=== PATIENT | female | born 1945 | race Caucasian/White ===

== ENCOUNTER 2017-08-12 06:19 | Observation (INO) | payer OTHER, MEDICARE ==
[2017-07-21 13:41] VITALS: BMI 41.0
--- NOTE | 2017-07-21 14:19 | PAT Medication Instructions ---
Service Date Jul 21, 2017. Current Home Medication List Aspirin (Aspirin Ec), 81 MG PO QAM Betamethasone Dipropionate (To (Betamethasone Dipropionat), 1 DOSE TOP PRN Biotin (Biotin 5000), 5 MG PO QAM Clobetasol Propionate (Clobetasol Propionate Cream 0.05%), 1 APPLN EXT PRN Hydrochlorothiazide (Hctz), 25 MG PO QAM Ibuprofen (Advil), 400 MG PO QD PRN for Pain Lisinopril (Prinivil), 40 MG PO QAM Loratadine (Claritin), 10 MG PO QD PRN for allergies Metoprolol Succinate (Toprol Xl), 25 MG PO QAM Multivitamin (Multivitamin), 1 TAB PO QAM Naproxen (Aleve), 440 MG PO QAM PRN for Pain Polyvinyl Alcohol-Povidone (Op (Refresh), 1 DROP OPB BID PRN for dry eyes Simvastatin (Zocor), 40 MG PO QPM Medication Instructions For Your Scheduled Surgery - Check with surgeon for instructions: Aspirin (Aspirin Ec), 81 MG PO QAM Ibuprofen (Advil), 400 MG PO QD PRN for Pain Naproxen (Aleve), 440 MG PO QAM PRN for Pain - Hold the following medications 24 hours prior to surgery: Clobetasol Propionate (Clobetasol Propionate Cream 0.05%), 1 APPLN EXT PRN Betamethasone Dipropionate (To (Betamethasone Dipropionat), 1 DOSE TOP PRN - Hold the following medications the morning of surgery: Biotin (Biotin 5000), 5 MG PO QAM Hydrochlorothiazide (Hctz), 25 MG PO QAM Lisinopril (Prinivil), 40 MG PO QAM Loratadine (Claritin), 10 MG PO QD PRN for allergies Multivitamin (Multivitamin), 1 TAB PO QAM - Take the following medications the morning of surgery with a sip of water: Polyvinyl Alcohol-Povidone (Op (Refresh), 1 DROP OPB BID PRN for dry eyes Metoprolol Succinate (Toprol Xl), 25 MG PO QAM - Take the following medications as scheduled the night before surgery: Simvastatin (Zocor), 40 MG PO QPM Polyvinyl Alcohol-Povidone (Op (Refresh), 1 DROP OPB BID PRN for dry eyes If you have any questions please call us at [phone] or [phone] or [phone]
--- NOTE | 2017-07-21 14:55 | DIAGNOSTIC IMAGING REPORT ---
CHEST 2 VIEWS ROUTINE HISTORY: Preop. COMPARISON: None. FINDINGS: The lungs are clear. Cardiac silhouette is normal in size. No pleural effusions. No pneumothorax. Cervical spinal fusion hardware is partially visualized. IMPRESSION: No acute process. Electronically signed by: Galdino Yin M.D. 07/21/2017 2:53 PM Dictated Date/Time: 07/21/2017 2:51 PM
[2017-07-21 15:33] LABS: BASO % 0.5 %; BASO ABS # 0.03 K/uL (0-0.2); COMPLETE YES; EOS % 4.1 %; IG% 0.3 %; LYMPH % 20.3 %; LYMPH ABS # 1.28 K/uL (1.2-3.4); MEAN CELL VOLUME 91.7 fL (80-100); MEAN CORPUSCULAR HEMOGLOBIN 30.3 pg (25-34); MEAN CORPUSCULAR HGB CONC 33.1 g/dl (32-36); MEAN PLATELET VOLUME 10.1 fL (7.4-10.4); MONO % 8.4 %; NEUT % 66.4 %; PLATELET COUNT 213 K/uL (130-400); RED BLOOD COUNT 4.58 M/uL (4.2-5.4)
[2017-07-21 15:39] LABS: URINE APPEARANCE CLEAR (CLEAR); URINE BILIRUBIN NEG (NEG); URINE COLOR YELLOW; URINE EPITHELIAL CELL AUTO >30 /lpf (0-5); URINE NITRITE NEG (NEG); URINE PH 5.5 (4.5-7.5); UROBILINOGEN NEG (NEG)
[2017-07-21 15:47] LABS: MANUAL MICROSCOPIC REQUIRED? NO; REVIEW REQ? NO
[2017-07-21 15:47] LABS: PROTHROMBIN TIME (PATIENT) 10.4 SECONDS (9.0-12.0)
[2017-07-21 16:16] LABS: BUN/CREATININE RATIO 26.9 (10-20); CALCIUM 9.4 mg/dl (8.5-10.1); CREATININE 0.8 mg/dl (0.60-1.20); POTASSIUM 3.7 mmol/L (3.5-5.1)
--- NOTE | 2017-08-11 14:12 | HISTORY & PHYSICAL EXAMINATION ---
DATE OF ADMISSION: 08/12/2017 HISTORY OF PRESENT ILLNESS: Clarice has spinal cord compressions, being preoped for cervical spine surgery. She has had ongoing difficulties 2 years in duration, worsening over time. She cannot lie supine. She has shock waves to her spine when she lies supine. Some recovery and improvement when she stands and sits up. She has not been able to lie in her own bed. Problem is quite significant for her with neck and arm pain. She also has right upper extremity difficulty consistent with right carpal tunnel syndrome. She has failed conservative management. PAST MEDICAL HISTORY: Positive for hypertension, high cholesterol, obesity. SOCIAL HISTORY: Nonsmoker, non-ETOH user. PAST SURGICAL HISTORY: Cervical spine surgery, bilateral knee replacement, hysterectomy. ALLERGIES: CEPHALEXIN. MEDICATIONS: Lisinopril, simvastatin, ibuprofen, Aleve, multivitamin, metoprolol, aspirin, hydrochlorothiazide. REVIEW OF SYSTEMS: She denies any blurred vision, double vision. She does have headaches. She has tinnitus as well. She does not have vertigo. Denies chest pain, palpitations. Denies asthma, wheezing, shortness of breath. No nausea, vomiting. She admits to upper extremity difficulties, particularly on the right and some on the left paresthesias, slight weakness, pain with flexion, extension of the cervical spine giving a shock wave type situation consistent with a Lhermitte sign. OBJECTIVE: VITAL SIGNS: Blood pressure 130/80, pulse of 80, respiratory rate 16, afebrile. HEAD, EYES, EARS, NOSE, AND THROAT: Normal. Pupils react to light and accommodation. Ear, nose and throat clear. CARDIAC: Normal S1, S2, no S3. LUNGS: Clear to auscultation. No rales, rhonchi or wheezing. ABDOMEN: Soft, nontender. Bowel sounds intact. She has a positive Spurling maneuver with rotation and side bending. She has weakness of her upper extremities. She has a positive Tinel, positive Phalen's on the right upper extremity. She has slight hyperreflexia. IMPRESSION: Spinal cord compression, cervical spondylosis and right carpal tunnel syndrome. DISPOSITION AND PLAN: Includes removal of hardware at C4-C7 of the cervical spine, revision ACDF C5-C6 cervical spine, ACDF of the cervical spine C4-C5, C3-4, possible C7-T1. Also, right carpal tunnel release. All questions addressed and answers she is emotionally and physically ready for surgery coming up on 08/12/2017 at [facility].
[~2017-08-12] VITALS: Ht 152.4 cm; Wt 96.8 kg
[2017-08-12] VITALS (14 sets, daily range): BP systolic 104–180; BP diastolic 64–78; PULSE 64–76; TEMP 36.4–36.9; O2SAT 97–100; Ht 152.4 cm; Wt 96.8 kg
[~2017-08-12 06:19] MED LIST: ASPI81TA28 PO; BETA0.053 TOP; BIOTCAP2 PO; CEFAZOLIN 2000MG IV PUSH 10 ML IV SCH; CLBCRM30 EXT; CLR10 PO; HYDR25TA4 PO; IBUP-1050 PO; LISI40TA PO; METO25TA3 PO; MULT-506 PO; NAPR1TAB9 PO; POLYSOL OPB; SIMV40TA2 PO
--- NOTE | 2017-08-12 08:11 | History & Physical Bridge Note ---
H&P Re-Evaluation Bridge Note: I have examined the patient, reviewed the History & Physical and in the interval since the performance of the History & Physical I have noted the following changes of clinical significance: No changes noted
[2017-08-12] MEDS ORDERED: BACITRACIN 50000 UNIT VIAL ONE (08:16)
[2017-08-12] MEDS ORDERED: BUPIVACAINE/EPINEPHRINE 0.5% MPF 1:200,000 30 ML VIAL ONE ×2 (08:16→08:21)
[2017-08-12] MEDS ORDERED: GELATIN SPONGE SZ 100 ONE (08:16)
[2017-08-12] MEDS ORDERED: THROMBIN FOR SOLN 20000 UNIT KIT ONE (08:16)
[2017-08-12] MEDS ORDERED: ONDANSETRON INJ 2 MG/ML 2 ML VIAL ONE ×2 (08:20→11:03)
[2017-08-12] MEDS ORDERED: DEXAMETHASONE SOD INJ 4 MG/ML VIAL ONE (08:20)
[2017-08-12] MEDS ORDERED: NEOSTIGMINE METHYLSULFATE 5 MG/5 ML SYR ONE (08:20)
[2017-08-12] MEDS ORDERED: LIDOCAINE HCL 2% 2 ML VIAL (20MG/ML) ONE (08:20)
[2017-08-12] MEDS ORDERED: HYDROmorphone INJ 2 MG/ML SYR/VIAL ONE (08:20)
[2017-08-12] MEDS ORDERED: LARYING-O-JET KIT (LTA) ONE ×2 (08:20)
[2017-08-12] MEDS ORDERED: FENTANYL CITRATE INJ 50 MCG/1 ML 2 ML VIAL ONE (08:20)
[2017-08-12] MEDS ORDERED: SODIUM CHLORIDE 0.9% INJ 10 ML VIAL ONE (08:20)
[2017-08-12] MEDS ORDERED: MIDAZOLAM HCL 1 MG/ML 2ML VIAL ONE (08:20)
[2017-08-12] MEDS ORDERED: GLYCOPYRROLATE INJ 0.2 MG/ML VIAL ONE ×2 (08:20→11:03)
[2017-08-12] MEDS ORDERED: PROPOFOL IV EMULSION 10 MG/ML 20 ML VIAL IV ONE (08:20)
[2017-08-12] MEDS ORDERED: CLINDAMYCIN 600 MG/54 ML D5W IV ONE (08:26)
[2017-08-12] MEDS ORDERED: BUPIVACAINE/EPINEPHRINE 0.5% MPF 1:200,000 10 ML VIAL ONE (09:23)
[2017-08-12] MEDS ORDERED: PHENYLEPHRINE HCL INJ 10 MG/ML VIAL ONE (09:48)
[2017-08-12] MEDS ORDERED: EpHEDrine SULFATE 50MG/5ML SYR ONE (09:48)
[2017-08-12] MEDS ORDERED: VANCOMYCIN HCL 1000MG/20ML VIAL ONE (10:19)
--- NOTE | 2017-08-12 11:23 | DIAGNOSTIC IMAGING REPORT ---
SPINE ONE VIEW, ANY LEVEL HISTORY: 72 years-old Female C4-C7 HARDWARE REMOVAL C5-C6 REVISION ACDF C3-C4 POSS C7-T1 hardware removal with C5-C6 revision COMPARISON: MRI cervical spine 03/23/2017 TECHNIQUE: 2 spot fluoroscopic images of the cervical spine were obtained utilizing 9.7 seconds fluoroscopy time. FINDINGS: Crosstable lateral views of the cervical spine with only the C2, C3 and C4 vertebral bodies well seen. Previously noted anterior fusion hardware at C4 appears to have been removed in the interval. Fusion hardware is present anteriorly at what appears to be the C5-C6 level. Recommend follow-up radiographs to confirm exact levels. IMPRESSION: Fluoroscopic assistance as above. Please see operative report for further details. The above report was generated using voice recognition software. It may contain grammatical, syntax or spelling errors. Electronically signed by: Gutierrez Sultana M.D. 08/12/2017 11:22 AM Dictated Date/Time: 08/12/2017 11:20 AM
--- NOTE | 2017-08-12 11:24 | [facility] Post Operative Brief Note ---
Immediate Operative Summary Operative Date Aug 12, 2017. Pre-Operative Diagnosis Spinal cord compression, cervical spondylosis, right carpal tunnel syndrome Post-Operative Diagnosis Spinal cord compression, cervical spondylosis, right carpal tunnel syndrome Procedure(s) Performed Right Carpal Tunnel Release, Removal of Prior Anterior Cervical Plate, Corpectomy C5-C6, Insertion Globus Coalition Surgeon Dr. Jose Armando Garsia Frame Table Operator Surgeon(s) Pramod Mccain PA-C Estimated Blood Loss carpal tunnel release = 0ml; C5-C6 Corpectomy = 40ml Findings carpal tunnel syndrome, spinal cord compression Specimens A. Explanted Cervical Hardware (7 screws and 1 plate) Complication(s) None Disposition Recovery Room / PACU
[2017-08-12] MEDS ORDERED: DEXAMETHASONE INJ 8 MG in SYRINGE 0 ML IV PRN (11:30)
[2017-08-12] MEDS ORDERED: NALOXONE HCL 0.4 MG/1 ML VIAL/CARP IV PRN ×2 (11:30→11:45)
[2017-08-12] MEDS ORDERED: ARTIFICIAL TEARS OP SOLN OPB PRN ×2 (11:30)
[2017-08-12] MEDS ORDERED: RACEPINEPHRINE 2.25% NEBU SOLN 0.5 ML VIAL INH PRN (11:30)
[2017-08-12] MEDS ORDERED: ONDANSETRON INJ 2 MG/ML 2 ML VIAL IV PRN ×2 (11:30→11:45)
[2017-08-12] MEDS ORDERED: LORATADINE 10 MG TAB PO PRN (11:30)
[2017-08-12] MEDS ORDERED: HYDROmorphone INJ 0.5 MG/0.5 ML SYR IV PRN (11:30)
[2017-08-12] MEDS ORDERED: MAGNESIUM HYDROXIDE SUSP 30 ML UDC PO PRN (11:30)
[2017-08-12] MEDS ORDERED: LORAZEPAM INJ 0.5 MG in SYRINGE 0.75 ML IV PRN (11:30)
[2017-08-12] MEDS ORDERED: HYDROmorphone INJ 1 MG/ML SYR IV PRN ×2 (11:45→14:15)
[2017-08-12] MEDS ORDERED: LABETALOL HCL IV 5 MG/ML 20ML IV PRN (11:45)
[2017-08-12] MEDS ORDERED: ATROPINE SULFATE 0.1 MG/ML 5ML SYR IV PRN (11:45)
[2017-08-12] MEDS ORDERED: PROMETHAZINE HCL INJ 12.5 MG in SODIUM CHLORIDE 0.9% 50ML 50 ML IV PRN (11:45)
[2017-08-12] MEDS ORDERED: FLUMAZENIL 0.1 MG/1 ML 10 ML VIAL IV PRN (11:45)
[2017-08-12] MEDS ORDERED: EpHEDrine SULFATE INJ 50 MG/ML AMP IV PRN (11:45)
[2017-08-12] MEDS ORDERED: IV FLUIDS COMPLETED PRN (12:00)
--- NOTE | 2017-08-12 12:10 | OPERATIVE REPORT ---
DATE OF OPERATION: 08/12/2017 PREOPERATIVE DIAGNOSES: 1. Right carpal tunnel syndrome. 2. Spinal cord compression C5-C6 cervical spine. POSTOPERATIVE DIAGNOSES: Same. PROCEDURES: 1. Right carpal tunnel release. 2. Corpectomy C5 and C6 cervical spine. 3. An anterior cervical bone graft, essentially anterior cervical fusion from C5-C6 with a PEEK implant packed with autograft. BLOOD LOSS: 40 mL. COMPLICATIONS: Zero. SURGEON: Dr. Garsia. WINDING LATHE OPERATOR: Pramod Mccain PA-C. DESCRIPTION OF PROCEDURE: The patient was taken to the operating room, a general intubated anesthetic provided to the patient. First, we addressed her right carpal tunnel syndrome. A tourniquet was applied to the right upper extremity, scrubbed, prepped and draped sterile. I made a skin incision over the transverse carpal ligament, divided the soft tissue in the same plane, divided the transverse carpal ligament perpendicular to its fibers. I was able to release the carpal canal approximately 1 cm proximal to the proximal crease of the wrist. I felt the nerve was decompressed. We irrigated and closed with 4-0 nylon suture. Sterile dressing applied, splint applied. The patient was kept in the operating room. We then went and prepped her for the cervical spine portion of the procedure. Traction was placed through the occiput and mandible, towels placed underneath the scapula. We scrubbed, prepped and draped sterile again. I used her old skin incision, it was a very tedious approach to get to the anterior aspect of the spinal canal. We did not encounter any significant problems that I could assess during the exposure. We got down to the anterior plate, the set screws were turned, the regular screws were backed out, the plate was removed with relative ease. We had studied the images greatly and preop over the last 2 weeks anticipation of the surgery. We essentially did a corpectomy at C5-C6 of the cervical spine. I took out approximately 10 mm of bone. Each vertebra only being approximately 7 mm in height. We carefully got back to the spinal cord. I decompressed the osteophytes on the spinal cord, freeing up the spine itself, foraminotomies provided as well. The cord was free of obstruction at C5-C6 interval. We then assessed the C6-C7 interval. My assessment early on was it might be a nonunion at C6-C7. I thought it was very solid at the time of exploration and repeat surgery in this level was unnecessary. We also radiographically looked at C3-4 and C7-T1 of thoracic spine and felt no further surgery was required. We ____ completely on the safety of the patient. Prior to irrigation and closure, in the corpectomy site we put in a coalition implant by the Ozmosis, 10 mm in height, slight taper to about 9 mm. This was packed with autograft, one screw 14 mm, superior direction one screw and inferior of same length. We then irrigated and closed over a Broaddus drain. Sterile dressings applied. The patient extubated. Returned to PACU stable. There were no apparent intraoperative complications. Sponge and needle count correct at the close. I attest to the content of the Intraoperative Record and any orders documented therein. Any exception s are noted below.
--- NOTE | 2017-08-12 12:45 | Anesthesiology Progress Note ---
Anesthesia Post Op Note Date & Time Aug 12, 2017 at 12:45 Vital Signs Pain Intensity: 0 Vital Signs Past 12 Hours Date Time Temp Pulse Resp B/P (MAP) Pulse Ox O2 Delivery O2 Flow Rate FiO2 08/12/17 12:40 36.4 82 16 120/47 98 Nasal Cannula 2 08/12/17 12:30 82 15 123/56 97 Nasal Cannula 2 08/12/17 12:20 81 14 117/60 98 Nasal Cannula 2 08/12/17 12:10 74 14 121/56 98 Nasal Cannula 2 08/12/17 12:00 78 20 120/57 100 Nasal Cannula 2 08/12/17 11:50 75 17 120/59 100 Oxymask 10 08/12/17 11:40 86 19 129/64 100 Oxymask 10 08/12/17 11:34 36.4 87 16 137/68 100 Oxymask 10 08/12/17 06:51 36.6 67 18 180/78 97 Room Air Notes Mental Status: alert / awake / arousable, participated in evaluation Pt Amnestic to Procedure: Yes Nausea / Vomiting: adequately controlled Pain: adequately controlled Airway Patency, RR, SpO2: stable & adequate BP & HR: stable & adequate Hydration State: stable & adequate Anesthetic Complications: no major complications apparent
[2017-08-12] MEDS: SODIUM CHLORIDE 0.9% 1000ML 1,000 ML IV SCH ×2 (14:23→23:45)
[2017-08-12] MEDS ORDERED: ROCURONIUM BROMIDE 10 MG/ML 5 ML VIAL IV ONE (14:26)
[2017-08-12] MEDS: CLINDAMYCIN IV 600 MG in DEXTROSE 5% 50ML 50 ML IV SCH ×2 (15:40→23:45)
[2017-08-12] MEDS: DEXAMETHASONE INJ 6 MG in SYRINGE 0 ML IV SCH ×2 (15:41→23:49)
[2017-08-12] MEDS: CLOBETASOL~ORDER AWAITING ACTION SCH ×2 (15:41→23:45)
[2017-08-12] MEDS ORDERED: NURSING VERBAL MED ORDER ONE (19:00)
[2017-08-12] MEDS ORDERED: METOCLOPRAMIDE HCL INJ 5 MG/ML 2 ML VIAL IV PRN (19:15)
[2017-08-12] MEDS: SIMVASTATIN 40 MG TAB PO SCH (21:07)
[2017-08-12] MEDS: DOCUSATE SODIUM 100 MG CAP PO SCH (21:07)
[2017-08-12] MEDS: OXYCODONE HCL IR 5 MG TAB (IMMEDIATE RELEASE) PO PRN (21:09)
[2017-08-13] VITALS (25 sets, daily range): BP systolic 109–132; BP diastolic 55–79; PULSE 60–86; TEMP 36.5–36.9; O2SAT 96–100
[2017-08-13] MEDS: OXYCODONE HCL IR 5 MG TAB (IMMEDIATE RELEASE) PO PRN ×6 (02:31→23:54)
[2017-08-13] MEDS: CLOBETASOL~ORDER AWAITING ACTION SCH ×3 (08:00→23:54)
[2017-08-13] MEDS: DEXAMETHASONE INJ 6 MG in SYRINGE 0 ML IV SCH (08:15)
[2017-08-13] MEDS: CLINDAMYCIN IV 600 MG in DEXTROSE 5% 50ML 50 ML IV SCH (08:15)
[2017-08-13] MEDS: METOPROLOL SUCC 25MG EXT REL TAB PO SCH (08:22)
[2017-08-13] MEDS: MULTIVITAMIN TAB PO SCH (08:22)
[2017-08-13] MEDS: LISINOPRIL 40 MG TAB PO SCH (08:23)
[2017-08-13] MEDS: ASPIRIN 81 MG ECTAB PO SCH (08:23)
[2017-08-13] MEDS: DOCUSATE SODIUM 100 MG CAP PO SCH ×2 (08:23→21:06)
[2017-08-13] MEDS: HYDROCHLOROTHIAZIDE 25 MG TAB PO SCH (08:24)
--- NOTE | 2017-08-13 08:27 | Anesthesiology Progress Note ---
Anesthesia Post Op Note Date & Time Aug 13, 2017 at 08:26 Vital Signs Pain Intensity: 4.0 Vital Signs Past 12 Hours Date Time Temp Pulse Resp B/P (MAP) Pulse Ox O2 Delivery O2 Flow Rate FiO2 08/13/17 08:06 36.8 73 16 117/55 100 Humidified Oxygen 2.0 08/13/17 07:12 36.5 67 16 118/65 (82) 99 2.0 08/13/17 06:00 36.6 67 16 119/70 99 Nasal Cannula 2.0 Humidified Air 08/13/17 04:16 36.8 81 16 121/69 (86) 99 Nasal Cannula 2.0 08/13/17 04:00 36.8 81 18 121/69 99 Nasal Cannula 08/13/17 03:21 61 16 98 Nasal Cannula 2.0 08/13/17 02:13 36.7 65 18 113/59 (77) 99 Nasal Cannula 2.0 08/13/17 02:00 36.7 65 18 113/59 99 Nasal Cannula Humidified Air 08/13/17 00:18 36.8 66 18 110/69 (83) 99 Nasal Cannula 2.0 08/13/17 00:00 36.8 66 18 110/69 99 Nasal Cannula 2.0 Humidified Air 08/12/17 23:45 Nasal Cannula 2.0 Humidified Air 08/12/17 23:10 64 16 98 Nasal Cannula 2.0 08/12/17 22:10 36.9 68 18 115/69 98 Nasal Cannula 2.0 Humidified Air Notes Mental Status: alert / awake / arousable, participated in evaluation Pt Amnestic to Procedure: Yes Nausea / Vomiting: adequately controlled Pain: adequately controlled Airway Patency, RR, SpO2: stable & adequate BP & HR: stable & adequate Hydration State: stable & adequate Anesthetic Complications: no major complications apparent
[2017-08-13] MEDS ORDERED: NON-FORMULARY MEDICATION (Biotin (Biotin 5000) 5 MG) PO SCH (09:00)
--- NOTE | 2017-08-13 11:12 | Discharge Instructions ---
Discharge Instructions Date of Service Aug 13, 2017. Admission Reason for Admission: Cervical Spondylosis Discharge Discharge Diagnosis / Problem: cord compression Discharge Goals Goal(s): Improve function Activity Recommendations Activity Limitations: as noted below Lifting Limitations: gradually increase as tolerated Exercise/Sports Limitations: until after follow-up appointment May Resume Sexual Activity: after follow-up appointment Shower/Bathe: keep incision dry . Instructions / Follow-Up Instructions / Follow-Up MEDICATIONS: Please take your prescriptions as instructed at your pre-op appointment. SPECIAL CARE: The following information is intended to answer some of the common questions and concerns regarding your surgery. Each patient is an individual and receives individual counselling throughout the course of treatment, from diagnosis to surgery all the way through recovery. What follows is not an exhaustive list, but should be a useful guide to some of the common questions and concerns patients have regarding their surgeries. These are not provided to keep you from calling us; rather, they give you something accurate and concrete to reference as you recover from your procedure. If you need us, we are available to you. As always, if you are not sure about something, call us at [phone]. MEDICAL EMERGENCIES: For these conditions, call 911 or go to your local hospital-based Emergency Department - not [facility] or equivalent. * Paralysis * Severe chest pain or difficulty breathing * Swelling or redness of either leg Spine procedures can be rather complex and though complications are rare, they do occur. In such cases, effective advice regarding emergency situations cannot always be addressed over the telephone. You may be referred to the emergency department for more effective management of your problem. Activity Limitations: It is important to give your body time to heal, so please limit your activities : * In general, don't do anything that moves your spine too much. You should avoid contact sports, twisting or heavy lifting while you recover. * 5-10 pounds is all you should attempt to lift. * You should not plan on driving for approximately 3 weeks and you should avoid traveling more than 30-45 minutes at a time. Longer trips should be broken down with walking breaks spaced appropriately. * Physical therapy is not usually required. * Walking and good posture practices will help you recover and regain your function. * Avoid straining or sudden changes in position. * In general, the goal is to take it easy and recover. Don't cause any new problems. Just relax. Showers: * Do not take a bath, use a Jacuzzi or hot tub or otherwise submerge your incision. * It is usually safe to take a shower 4-5 days after your surgery. * Your incision does not require any special creams or ointments. * Simply clean it with soap and water, dry and re-dress with a clean bandage afterwards. Incision: * Keep incision clean, dry and protected until your first follow-up appointment. * Some amount of drainage and redness is normal. Any drainage should be fairly clear and not have a foul odor. * If you feel anything is wrong or you have excessive drainage, please call us. * Your stitches and clair will be removed 10-14 days after your surgery. At the time of your first post-op visit. * Neck surgeries are typically closed with a suture underneath the skin. The steri-strips over the incision should be maintained until we see you in the office. Bracing: * You may be provided with a back or neck brace to encourage good posture and prevent injury. It will remind you not to do too much as you heal and will alert others to the fact that you have had a surgery. * Back braces may be removed for showers and when you are resting at home. They must be worn when you are walking around for any period of time or for travel. * For neck surgery, you will likely be provided with two cervical collars. The soft collar ([place] or foam rubber) is worn most commonly throughout the day and while sleeping. The plastic collar (provided at the hospital) is for showering/bathing. * Except while eating, collars should remain in place. More specifically, bracing is provided for a purpose and should be worn. * Please obtain your brace or collars prior to your operation and bring them to the hospital with you on the day of surgery. * You should also bring your collars to your post-op appointment with Dr. Garsia. You should always take good care of your body and practice healthy habits, especially following surgery. You should: * Follow your doctor's treatment plan * Sit and stand properly with good posture (ears over shoulders, shoulders over hips) Don't slouch * Learn to lift correctly * Exercise regularly (low-impact aerobic exercise is especially good, but check with your doctor first) * Generally, be up and walking for 5-10 minutes at a time at least 3-4 times per day from the day you get home * Increasing walking to tolerance until you can walk for 20-30 minutes at a time * Attain and maintain a healthy body weight * Eat healthy foods ( a well-balanced, low-fat diet rich in fruits and vegetables) and get enough calcium * Avoid excessive use of alcohol When to call our office - If you notice any of the following: * Increased pain not relieve by pain medicine * Fevers greater then 100 degrees F, chills or flu symptoms * Increased redness around incision * Drainage from the incision that is not clear * Any foul smelling drainage * Swelling or fluid collection beneath the skin Miscellaneous: * In the hospital, you may be given a walker or cane for support while walking. These are temporary needs and are intended to prevent injuries due to falls. You may discontinue them when you feel strong and steady enough on your feet. * Sleep in a comfortable position. We find that many patients find a lounge chair or recliner with several pillows to be beneficial in the early post-operative period. * The support stockings should be used for 7-10 days and may be discontinued when you are back to walking more and conducting usual household activities. No problem is insignificant. We are here to help you and get you well. Contact us at [phone]. Definitions: Foraminotomy: If part of the disc or a bone spur (osteophyte) is pressing on a nerve as it leaves the vertebra (through an exit called the foramen), a foraminotomy may be done. Otomy means "to make an opening." A foraminotomy is making the opening of the foramen larger, so the nerve can exit without being compressed. Laminotomy: Similar to the foraminotomy, a laminotomy makes a larger opening, this time in your bony plate protecting your spinal canal and spinal cord (the lamina). The lamina may be pressing on your nerve, so the surgeon may make more room for the nerves using a laminotomy. Laminectomy: Sometimes, a laminotomy is not sufficient. The surgeon may need to remove all or part of the lamina. This procedure is called a laminectomy. This can often be done at many levels without any harmful effects. Current Hospital Diet Patient's current hospital diet: Regular Diet Discharge Diet Recommended Diet: Regular Diet Procedures Procedures Performed: Right Carpal Tunnel Release, Removal of Prior Anterior Cervical Plate, Corpectomy C5-C6, Insertion Globus Coalition Pending Studies Studies pending at discharge: no Medical Emergencies . Who to Call and When: Medical Emergencies: If at any time you feel your situation is an emergency, please call 911 immediately. . Non-Emergent Contact Non-Emergency issues call your: Surgeon . "Provider Documentation" section prepared by Jose Armando Garsia. . VTE Core Measure Inpt VTE Proph given/why not?: Treatment not indicated
[2017-08-13] MEDS: SIMVASTATIN 40 MG TAB PO SCH (21:06)
[2017-08-14] VITALS (7 sets, daily range): BP systolic 105–122; BP diastolic 68–77; PULSE 55–62; TEMP 36.6–36.7; O2SAT 95–99
[2017-08-14] MEDS: OXYCODONE HCL IR 5 MG TAB (IMMEDIATE RELEASE) PO PRN ×2 (04:25→08:18)
[2017-08-14] MEDS ORDERED: BISACODYL 5 MG TABEC PO PRN (06:00)
[2017-08-14] MEDS ORDERED: BISACODYL 10 MG SUPP PR PRN (06:00)
[2017-08-14] MEDS: CLOBETASOL~ORDER AWAITING ACTION SCH (08:00)
[2017-08-14] MEDS: ASPIRIN 81 MG ECTAB PO SCH (08:11)
[2017-08-14] MEDS: HYDROCHLOROTHIAZIDE 25 MG TAB PO SCH (08:12)
[2017-08-14] MEDS: LISINOPRIL 40 MG TAB PO SCH (08:12)
[2017-08-14] MEDS: METOPROLOL SUCC 25MG EXT REL TAB PO SCH (08:12)
[2017-08-14] MEDS: DOCUSATE SODIUM 100 MG CAP PO SCH (08:12)
[2017-08-14] MEDS: MULTIVITAMIN TAB PO SCH (08:13)
--- NOTE | 2017-08-14 09:11 | Discharge Summary ---
Orthopedic Discharge Summary Admission Date/Reason Aug 12, 2017 at 08:20 Cervical Spondylosis. Discharge Date/Disposition Aug 14, 2017 Home Diagnosis Principal Diagnosis: cord compression Medication Reconciliation norco at home Admission Physical Exam As per Admitting History & Physical. Discharge Instructions Please refer to the electronic Patient Visit Report (Discharge Instructions) for additional information.
--- NOTE | 2017-08-14 09:27 | DISCHARGE SUMMARY ---
SUBJECTIVE: Improved, stable. Wound clean. Neurologically normal improving. ASSESSMENT: Status post anterior cervical discectomy and fusion cervical spine, multilevel, corpectomy procedure, right carpal tunnel release, doing well short run. Instructions, precautions provided. Will discharge her home. She was given medications last evening. Keep the wounds clean, dry, cervical collar. She is set to leave the hospital.
== END 2017-08-14 11:05 | disposition home or self-care (01) ==
LOC: C.ACU 06:19 → C.3E 08:20 → ENRESERV 12:29
PROVIDERS: ADMIT Orthopaedic Surgery Orthopaedic Surgery of the Spine; ATTEND Orthopaedic Surgery Orthopaedic Surgery of the Spine
DX: M47.22 Other spondylosis with radiculopathy, cervical region (principal); G47.22 Circadian rhythm sleep disorder, advanced sleep phase type; I10 Essential (primary) hypertension; E78.00 Pure hypercholesterolemia, unspecified; E66.9 Obesity, unspecified; Z79.82 Long term (current) use of aspirin; Z79.899 Other long term (current) drug therapy

== ENCOUNTER 2020-04-26 14:56 | Inpatient (IN) ==
--- OUTSIDE RECORDS SUMMARY | 2020-04-26 14:59 | External Medical Summary | Continuity of Care Document ---
:1945 Author Name Claire Christensen Address Unavailable Unavailable , Care Team Providers Name Role Phone Baldomero Roe PA-C Unavailable [email or web address] Problems Active medical history not documented Allergies and Adverse Reactions Allergy history not documented Medications Medications not documented Procedures Procedures not documented Immunizations Immunizations not documented Plan of Treatment Planned Observations Planned Goals not documented Results No Known Results Results not documented Encounters Appointment; Adeline Roe PA-C 03-Sep-2009 12:30 Encounter Diagnosis: Problem not documented
--- OUTSIDE RECORDS SUMMARY | 2020-04-26 14:59 | External Medical Summary | Continuity of Care Document ---
:1945 Author Name Claire Christensen Address Unavailable Unavailable , Care Team Providers Name Role Phone Baldomero Roe PA-C Unavailable [email or web address] Problems Active medical history not documented Allergies and Adverse Reactions Allergy history not documented Medications Medications not documented Procedures Procedures not documented Immunizations Immunizations not documented Plan of Treatment Planned Observations Planned Goals not documented Results No Known Results Results not documented Encounters Appointment; Adeline Roe PA-C 03-Sep-2009 12:30 Encounter Diagnosis: Problem not documented
[2020-04-26] MEDS ORDERED: ACETAMINOPHEN 1,000 MG/100 ML VIAL IV STA (15:51)
[2020-04-26 16:21] LABS: Basophils # (auto) 0.01 K/uL (0-0.2); Basophils % (auto) 0.1 %; Eosinophils # (auto) 0.01 K/uL (0-0.5); Eosinophils % (auto) 0.1 %; Hematocrit (blood only) 40.4 % (37-47); Hemoglobin 13.6 g/dL (12.0-16.0); Immature Granulocytes # (auto) 0.02 K/uL (0.00-0.02); Immature Granulocytes % (auto) 0.1 %; Lymphocytes % (auto) 3.4 %; Mean Corpuscular Hemoglobin 30.5 pg (25-34); Mean Corpuscular Hgb Conc 33.7 g/dL (32-36); Mean Corpuscular Volume 90.6 fL (80-100); Mean Platelet Volume 9.7 fL (7.4-10.4); Monocytes # (auto) 0.98 K/uL (0.11-0.59); Monocytes % (auto) 6.7 %; Neutrophils # (auto) 13.11 K/uL (1.4-6.5); Neutrophils % (auto) 89.6 %; Platelet Count 161 K/uL (130-400); RDW Coefficient of Variation 12.9 % (11.5-14.5); RDW Standard Deviation 42.5 fL (36.4-46.3); Red Blood Count 4.46 M/uL (4.2-5.4); White Blood Count 14.63 K/uL (4.8-10.8)
[2020-04-26 16:38] LABS: Partial Thromboplastin Ratio 0.9; Partial Thromboplastin Time 25.1 Seconds (21.0-31.0); Prothrombin Time 10.8 Seconds (9.0-12.0)
[2020-04-26 16:46] LABS: Alanine Aminotransferase 25 U/L (12-78); Albumin Level 3.8 gm/dl (3.4-5.0); Aspartate Aminotransferase 21 U/L (15-37); BUN Creatinine Ratio 20.9 (10-20); Bilirubin Direct 0.4 mg/dl (0-0.2); Blood Urea Nitrogen 20 mg/dl (7-18); Calcium 8.8 mg/dl (8.5-10.1); Carbon Dioxide 28 mmol/L (21-32); Chloride 104 mmol/L (98-107); Creatinine Clr Calc Pharmacy 54.7 ml/min; Est GFR (African American) 66.2; Est GFR (Non-African American) 57.1; Glucose 117 mg/dl (70-99); Potassium 3.5 mmol/L (3.5-5.1); Sodium 137 mmol/L (136-145)
[2020-04-26 16:49] LABS: Albumin Globulin Ratio 1.1 (0.9-2); Alkaline Phosphatase 73 U/L (45-117); Bilirubin,Total 1.5 mg/dl (0.2-1); C Reactive Protein 5.36 mg/dl (0-0.29); Globulin 3.6 gm/dl (2.5-4.0); NT Pro B Type Natriuretic Pept 583 pg/ml (0-900); Phosphorus 2.3 mg/dl (2.5-4.9); Total Protein 7.4 gm/dl (6.4-8.2); Troponin I < 0.015 ng/ml (0-0.045)
--- NOTE | 2020-04-26 17:07 | XRay Report ---
SINGLE VIEW CHEST CLINICAL HISTORY: Sepsis. FINDINGS: An AP, portable, upright chest radiograph is compared to study dated 07/21/2017. The cardiom ediastinal silhouette is normal for projection. There is mild bibasilar atelectasis. The lungs and pl eural spaces are otherwise clear. No pneumothorax is seen. The skeletal structures are osteopenic. Th e bony thorax is grossly intact. Fusion hardware is noted in the lower cervical spine. IMPRESSION: No active disease in the chest. ACT 112: Negative or not required by law. Electronically signed by: Carlos Castaneda M.D. 04/26/2020 5:06 PM
[2020-04-26] MEDS ORDERED: cefTRIAXone SODIUM 2,000 MG/70 ML BAG IV STA (17:20)
--- NOTE | 2020-04-26 17:34 | Emergency Department Note ---
Impression & Plan Cellulitis, Fever, Leukocytosis, Myalgia ED Provider Note NAME: RAZIA BARNARD AGE: 74 SEX: F ARRIVES VIA: Walk-In INFORMANT: Patient, ED PROVIDER(S): Willie Sainz MD CHIEF COMPLAINT: Fever, body aches PLAN: Disposition: Admit MEDICAL DECISION MAKING: The patient is a pleasant 74-year-old woman with a past medical history of chronic lymphedema who presents emergency department for evaluation of generalized body aches and fevers that began last night. The patient denies any cough, congestion, chest pain, shortness of breath. She denies any known contact with individuals diagnosed with COVID-19. On arrival the patient is uncomfortable but no acute distress, afebrile with temperature of 37.9 and vital signs otherwise stable. She does have 3+ bilateral lower extremity edema with mild erythema and warmth of the left lower extremity that she reports is at her baseline though she appears unsure. EKG without evidence of acute ischemia. CXR negative. WBC 14.6, nonspecific. H/H and platelets wnl. ESR wnl. Chemistry without acidosis and lactate wnl. Phosphorus 2.3 and otherwise electrolytes unremarkable. Total bilirubin 1.5 and Direct bilirubin 0.4 nonspecific. Otherwise, LFTs unremarkable. CRP 5.6, Troponin negative/undetectable. UA without convincing infection. COvid19 negative. Patient treated for cellulitis with CTX and vancomycin. Upon re-evaluation patient still reports feeling unwell, weak with body aches. Thus given patient's persistent symptoms in setting of possible early sepsis reasonable to admit for further management. Case was discussed with Dr. Waddell, [facility] hospitalist, who will evaluate the patient for admission. Triage Nursing notes reviewed and agree them. Prior medical records reviewed Vital Signs: reviewed and remarkable for no significant abnormalities Differential diagnosis: Viral syndrome, otitis, pharyngitis, pneumonia, influenza, meningitis, urinary tract infection, sepsis, bacteremia, as well as other pathologies. ER treatment provided: See below. Diagnostics interpreted by me: ECG: NSR, 95 bpm, no ectopy, no overt ST elevation or depression, QTC 422, QRS 88 Cardiac Monitoring: An order for continuous cardiac monitoring was placed and demonstrated NSR, 95 bpm, no ectopy, Laboratory studies: See below Imaging studies: SINGLE VIEW CHEST CLINICAL HISTORY: Sepsis. FINDINGS: An AP, portable, upright chest radiograph is compared to study dated . The cardiomediastinal silhouette is normal for projection. There is mild bibasilar atelectasis. The lungs and pleural spaces are otherwise clear. No pneumothorax is seen. The skeletal structures are osteopenic. The bony thorax is grossly intact. Fusion hardware is noted in the lower cervical spine. IMPRESSION: No active disease in the chest. Consultation(s): Case was discussed with Dr. Waddell, [facility] hospitalist, who will evaluate the patient for admission. HPI: The patient is a pleasant 74-year-old woman with a past medical history of chronic lymphedema who presents emergency department for evaluation of generalized body aches and fevers that began last night. The patient denies any cough, congestion, chest pain, shortness of breath. She denies any known contact with individuals diagnosed with COVID-19. ROS: See above HPI for pertinent positives & negatives. A total of 10 systems reviewed and were otherwise negative. PAST MEDICAL HISTORY:See Below PAST SURGICAL HISTORY:See Below FAMILY HISTORY:See Below SOCIAL HISTORY:See Below HOME MEDICATIONS:See Below ALLERGIES:See Below VITALS:See Below PHYSICAL EXAMINATION: GENERAL: Awake, alert, fatigued-appearing, in no distress, BMI 44.3 Kg/M2 HENT: Normocephalic, atraumatic. Oropharynx with dry mucous membranes and otherwise unremarkable. EYES: Normal conjunctiva. Sclera non-icteric. NECK: Supple. No nuchal rigidity. FROM. No JVD. RESPIRATORY: Clear to auscultation. CARDIAC: Regular rate, normal rhythm. Extremities warm and well perfused. Pulses equal. ABDOMEN: Soft, non-distended. No tenderness to palpation. No rebound or guarding. No masses. RECTAL: Deferred. MUSCULOSKELETAL: Chest examination reveals no tenderness. The back is symmetrical on inspection without obvious abnormality. There is no CVA tenderness to palpation. No joint edema. LOWER EXTREMITIES: Calves are equal size bilaterally and non-tender. 3+ BLE e delia. Erythema, warmth, serous weeping of left lower leg. NEURO: Normal sensorium. No sensory or motor deficits noted. SKIN: No rash or jaundice noted. ED COURSE: Critical Care: I have personally spent greater than 35 minutes of critical care time in the direct management of this patient. This includes bedside care, interpretation of diagnostic studies, and testing, discussion with consultants, patient, and family members, and other required patient management activities. This 35 minutes is in excess of all separately billable procedures. Willie Sainz MD Past Med/Surg History Medical History (Updated 04/27/20 @ 00:18 by Willie Sainz MD) HLD (hyperlipidemia) (Chronic) HTN (hypertension) (Chronic) Lymphedema Social History Preferred Language: Vietnamese Communication Ability: Effective [employer] Required: No Beliefs That Will Affect Care: None Current Living Situation: Alone Other Information That Helps Us Care for You: No Feels Safe at Home: Yes Safety Concerns: Feels Safe At This Time Smoking Status: Former smoker Hx Alcohol Use: Yes Hx Substance Use: No Allergies Allergies Allergy/AdvReac Type Severity Reaction Status Date / Time cephalexin Allergy Intermediate ITCHY RASH Verified 04/26/20 16:47 Home Meds Home Medications Medication Instructions Recorded Confirmed aspirin [Aspir-81] 81 mg PO QAM 04/26/20 04/26/20 betamethasone dipropionate 1 applic TOPICAL DIRECTED PRN 04/26/20 04/26/20 biotin 5 mg PO QAM 04/26/20 04/26/20 clobetasol 1 applic TOPICAL DIRECTED PRN 04/26/20 04/26/20 hydrochlorothiazide 25 mg PO QAM 04/26/20 04/26/20 ibuprofen 400 mg PO Q6H PRN 04/26/20 04/26/20 lisinopril 40 mg PO QAM 04/26/20 04/26/20 loratadine 10 mg PO DAILY PRN 04/26/20 04/26/20 metoprolol succinate 25 mg PO QAM 04/26/20 04/26/20 multivitamin 1 tab PO QAM 04/26/20 04/26/20 naproxen sodium [Aleve] 440 mg PO BID PRN 04/26/20 04/26/20 polyvinyl alcohol-povidone 1 drp OPHTHALMIC (EYE) DIRECTED 04/26/20 04/26/20 PRN simvastatin 40 mg PO QPM 04/26/20 04/26/20 Results & Data (ED) Vital Signs Vital Signs - 24 hr 04/26/20 15:29 04/26/20 15:59 04/26/20 16:09 Temperature 37.9 C H Temperature Source Oral Pulse Rate 100 H 89 Pulse Rate [Apical] Pulse Rate from SpO2 Sensor Pulse Rhythm Regular Pulse Rhythm [Apical] Pulse Strength [Apical] Respiratory Rate 20 20 Respiratory Effort / Characteristics Non-Labored Spontaneous Non-Labored Spontaneous Respiratory Depth Normal Normal Respiratory Pattern Agonal Blood Pressure 156/106 H Blood Pressure [Right Arm] Blood Pressure Mean 122 Blood Pressure Mean [Right Arm] Blood Pressure Position [Right Arm] Pulse Oximetry 96 96 96 Oxygen Delivery Method Room Air Room Air Room Air Sepsis Recent Fever Within 48 Hours Yes Sepsis New/Unexplained Change in Mental Status No Sepsis Action Taken by Nursing No Action Required 04/26/20 16:43 04/26/20 18:05 04/26/20 19:11 Temperature 37.8 C H 37.3 C 37.0 C Temperature Source Oral Oral Oral Pulse Rate Pulse Rate [Apical] 89 75 74 Pulse Rate from SpO2 Sensor Pulse Rhythm Pulse Rhythm [Apical] Regular Regular Pulse Strength [Apical] Normal Normal Respiratory Rate 20 20 18 Respiratory Effort / Characteristics Non-Labored Spontaneous Non-Labored Spontaneous Non-Labored Spontaneous Respiratory Depth Normal Normal Normal Respiratory Pattern Regular Regular Regular Blood Pressure Blood Pressure [Right Arm] 129/80 96/49 L 121/49 L Blood Pressure Mean Blood Pressure Mean [Right Arm] 96 64 73 Blood Pressure Position [Right Arm] Sitting Sitting Lying Pulse Oximetry 96 95 95 Oxygen Delivery Method Room Air Room Air Room Air Sepsis Recent Fever Within 48 Hours Sepsis New/Unexplained Change in Mental Status Sepsis Action Taken by Nursing 04/26/20 19:30 04/26/20 20:00 04/26/20 20:30 Temperature Temperature Source Pulse Rate Pulse Rate [Apical] Pulse Rate from SpO2 Sensor 69 78 61 Pulse Rhythm Pulse Rhythm [Apical] Pulse Strength [Apical] Respiratory Rate 20 31 H 38 H Respiratory Effort / Characteristics Respiratory Depth Respiratory Pattern Blood Pressure 113/44 L 127/54 L 105/61 Blood Pressure [Right Arm] Blood Pressure Mean 67 89 91 Blood Pressure Mean [Right Arm] Blood Pressure Position [Right Arm] Pulse Oximetry 96 97 95 Oxygen Delivery Method Sepsis Recent Fever Within 48 Hours Sepsis New/Unexplained Change in Mental Status Sepsis Action Taken by Nursing 04/26/20 21:00 04/26/20 21:30 04/26/20 22:00 Temperature Temperature Source Pulse Rate Pulse Rate [Apical] Pulse Rate from SpO2 Sensor 62 63 64 Pulse Rhythm Pulse Rhythm [Apical] Pulse Strength [Apical] Respiratory Rate 18 25 H 19 Respiratory Effort / Characteristics Respiratory Depth Respiratory Pattern Blood Pressure 110/63 109/70 99/50 L Blood Pressure [Right Arm] Blood Pressure Mean 80 94 75 Blood Pressure Mean [Right Arm] Blood Pressure Position [Right Arm] Pulse Oximetry 96 95 94 Oxygen Delivery Method Sepsis Recent Fever Within 48 Hours Sepsis New/Unexplained Change in Mental Status Sepsis Action Taken by Nursing Laboratory Data Result diagrams: 04/26/20 16:09 04/26/20 16:09 Lab Results 04/26/20 04/26/20 04/26/20 Range/Units 16:09 16:09 16:09 WBC 14.63 H (4.8-10.8) K/uL RBC 4.46 (4.2-5.4) M/uL Hgb 13.6 (12.0-16.0) g/dL Hct 40.4 (37-47) % MCV 90.6 (80-100) fL MCH 30.5 (25-34) pg MCHC 33.7 (32-36) g/dL RDW Std Deviation 42.5 (36.4-46.3) fL RDW Coeff of [place] 12.9 (11.5-14.5) % Plt Count 161 (130-400) K/uL MPV 9.7 (7.4-10.4) fL Immature Gran % (Auto) 0.1 % Neut % (Auto) 89.6 % Lymph % (Auto) 3.4 % Waller % (Auto) 6.7 % Eos % (Auto) 0.1 % Baso % (Auto) 0.1 % Neut # (Auto) 13.11 H (1.4-6.5) K/uL Lymph # (Auto) 0.50 L (1.2-3.4) K/uL Waller # (Auto) 0.98 H (0.11-0.59) K/uL Eos # (Auto) 0.01 (0-0.5) K/uL Baso # (Auto) 0.01 (0-0.2) K/uL Immature Gran # (Auto) 0.02 (0.00-0.02) K/uL ESR (0-21) mm/hr PT 10.8 (9.0-12.0) Seconds INR 1.0 (0.9-1.1) APTT 25.1 (21.0-31.0) Seconds PTT Ratio 0.9 Sodium 137 (136-145) mmol/L Potassium 3.5 (3.5-5.1) mmol/L Chloride 104 (98-107) mmol/L Carbon Dioxide 28 (21-32) mmol/L Anion Gap 5.0 (3-11) BUN 20 H (7-18) mg/dl Creatinine 0.97 (0.6-1.2) mg/dl Est Cr Clr Drug Dosing 54.7 ml/min Est GFR ( Amer) 66.2 Est GFR (Non-Af Amer) 57.1 BUN/Creatinine Ratio 20.9 H (10-20) Glucose 117 H (70-99) mg/dl Lactate (0.4-2.0) mmol/L Calcium 8.8 (8.5-10.1) mg/dl Phosphorus 2.3 L (2.5-4.9) mg/dl Magnesium 2.0 (1.8-2.4) mg/dl Total Bilirubin 1.5 H (0.2-1) mg/dl Direct Bilirubin 0.4 H (0-0.2) mg/dl AST 21 (15-37) U/L ALT 25 (12-78) U/L Alkaline Phosphatase 73 (45-117) U/L Troponin I < 0.015 (0-0.045) ng/ml C-Reactive Protein 5.36 H (0-0.29) mg/dl NT-Pro-B Natriuret Pep 583 (0-900) pg/ml Total Protein 7.4 (6.4-8.2) gm/dl Albumin 3.8 (3.4-5.0) gm/dl Globulin 3.6 (2.5-4.0) gm/dl Albumin/Globulin Ratio 1.1 (0.9-2) Urine Color Urine Appearance (Clear) Urine pH (4.5-7.5) Ur Specific Cornelia (1.000-1.030) Urine Protein (Negative) Urine Glucose (UA) (Negative) Urine Ketones (Negative) Urine Blood (Negative) Urine Nitrite (Negative) Urine Bilirubin (Negative) Urine Urobilinogen (Negative) Ur Leukocyte Esterase (Negative) Urine WBC (Auto) (0-5) /hpf Urine RBC (Auto) (0-4) /hpf U Hyaline Cast (Auto) (0-5) /lpf U Epithel Cells (Auto) (0-5) /lpf Urine Bacteria (Auto) (Negative) COVID-19 PCR (Negative) SARS-CoV-2 RNA (RT-PCR) 04/26/20 04/26/20 04/26/20 Range/Units 16:09 16:09 19:00 WBC (4.8-10.8) K/uL RBC (4.2-5.4) M/uL Hgb (12.0-16.0) g/dL Hct (37-47) % MCV (80-100) fL MCH (25-34) pg MCHC (32-36) g/dL RDW Std Deviation (36.4-46.3) fL RDW Coeff of [place] (11.5-14.5) % Plt Count (130-400) K/uL MPV (7.4-10.4) fL Immature Gran % (Auto) % Neut % (Auto) % Lymph % (Auto) % Waller % (Auto) % Eos % (Auto) % Baso % (Auto) % Neut # (Auto) (1.4-6.5) K/uL Lymph # (Auto) (1.2-3.4) K/uL Waller # (Auto) (0.11-0.59) K/uL Eos # (Auto) (0-0.5) K/uL Baso # (Auto) (0-0.2) K/uL Immature Gran # (Auto) (0.00-0.02) K/uL ESR 14 (0-21) mm/hr PT (9.0-12.0) Seconds INR (0.9-1.1) APTT (21.0-31.0) Seconds PTT Ratio Sodium (136-145) mmol/L Potassium (3.5-5.1) mmol/L Chloride (98-107) mmol/L Carbon Dioxide (21-32) mmol/L Anion Gap (3-11) BUN (7-18) mg/dl Creatinine (0.6-1.2) mg/dl Est Cr Clr Drug Dosing ml/min Est GFR ( Amer) Est GFR (Non-Af Amer) BUN/Creatinine Ratio (10-20) Glucose (70-99) mg/dl Lactate 1.2 (0.4-2.0) mmol/L Calcium (8.5-10.1) mg/dl Phosphorus (2.5-4.9) mg/dl Magnesium (1.8-2.4) mg/dl Total Bilirubin (0.2-1) mg/dl Direct Bilirubin (0-0.2) mg/dl AST (15-37) U/L ALT (12-78) U/L Alkaline Phosphatase (45-117) U/L Troponin I (0-0.045) ng/ml C-Reactive Protein (0-0.29) mg/dl NT-Pro-B Natriuret Pep (0-900) pg/ml Total Protein (6.4-8.2) gm/dl Albumin (3.4-5.0) gm/dl Globulin (2.5-4.0) gm/dl Albumin/Globulin Ratio (0.9-2) Urine Color Dark Yellow Urine Appearance Cloudy A (Clear) Urine pH 5.0 (4.5-7.5) Ur Specific [place]elia 1.022 (1.000-1.030) Urine Protein Negative (Negative) Urine Glucose (UA) Negative (Negative) Urine Ketones Trace H (Negative) Urine Blood Negative (Negative) Urine Nitrite Negative (Negative) Urine Bilirubin Negative (Negative) Urine Urobilinogen Negative (Negative) Ur Leukocyte Esterase Negative (Negative) Urine WBC (Auto) 1-5 (0-5) /hpf Urine RBC (Auto) 0-4 (0-4) /hpf U Hyaline Cast (Auto) 1-5 (0-5) /lpf U Epithel Cells (Auto) >30 H (0-5) /lpf Urine Bacteria (Auto) Negative (Negative) COVID-19 PCR (Negative) SARS-CoV-2 RNA (RT-PCR) 04/26/20 04/26/20 Range/Units 20:46 20:46 WBC (4.8-10.8) K/uL RBC (4.2-5.4) M/uL Hgb (12.0-16.0) g/dL Hct (37-47) % MCV (80-100) fL MCH (25-34) pg MCHC (32-36) g/dL RDW Std Deviation (36.4-46.3) fL RDW Coeff of [place] (11.5-14.5) % Plt Count (130-400) K/uL MPV (7.4-10.4) fL Immature Gran % (Auto) % Neut % (Auto) % Lymph % (Auto) % Waller % (Auto) % Eos % (Auto) % Baso % (Auto) % Neut # (Auto) (1.4-6.5) K/uL Lymph # (Auto) (1.2-3.4) K/uL Waller # (Auto) (0.11-0.59) K/uL Eos # (Auto) (0-0.5) K/uL Baso # (Auto) (0-0.2) K/uL Immature Gran # (Auto) (0.00-0.02) K/uL ESR (0-21) mm/hr PT (9.0-12.0) Seconds INR (0.9-1.1) APTT (21.0-31.0) Seconds PTT Ratio Sodium (136-145) mmol/L Potassium (3.5-5.1) mmol/L Chloride (98-107) mmol/L Carbon Dioxide (21-32) mmol/L Anion Gap (3-11) BUN (7-18) mg/dl Creatinine (0.6-1.2) mg/dl Est Cr Clr Drug Dosing ml/min Est GFR ( Amer) Est GFR (Non-Af Amer) BUN/Creatinine Ratio (10-20) Glucose (70-99) mg/dl Lactate (0.4-2.0) mmol/L Calcium (8.5-10.1) mg/dl Phosphorus (2.5-4.9) mg/dl Magnesium (1.8-2.4) mg/dl Total Bilirubin (0.2-1) mg/dl Direct Bilirubin (0-0.2) mg/dl AST (15-37) U/L ALT (12-78) U/L Alkaline Phosphatase (45-117) U/L Troponin I (0-0.045) ng/ml C-Reactive Protein (0-0.29) mg/dl NT-Pro-B Natriuret Pep (0-900) pg/ml Total Protein (6.4-8.2) gm/dl Albumin (3.4-5.0) gm/dl Globulin (2.5-4.0) gm/dl Albumin/Globulin Ratio (0.9-2) Urine Color Urine Appearance (Clear) Urine pH (4.5-7.5) Ur Specific Cornelia (1.000-1.030) Urine Protein (Negative) Urine Glucose (UA) (Negative) Urine Ketones (Negative) Urine Blood (Negative) Urine Nitrite (Negative) Urine Bilirubin (Negative) Urine Urobilinogen (Negative) Ur Leukocyte Esterase (Negative) Urine WBC (Auto) (0-5) /hpf Urine RBC (Auto) (0-4) /hpf U Hyaline Cast (Auto) (0-5) /lpf U Epithel Cells (Auto) (0-5) /lpf Urine Bacteria (Auto) (Negative) COVID-19 PCR NEGATIVE (Negative) SARS-CoV-2 RNA (RT-PCR) Cancelled Administered Medications Ioversol (Optiray 320 125ml) 118 ml IV ONCE PRN PRN Reason: Interaction Checking Stop: 04/30/20 23:09 Last Admin: 04/26/20 23:10 Dose: 1 ml Documented by: [id number] Discontinued Medications Albuterol (Duoneb) 3 ml NEB NOW STA Stop: 04/26/20 23:38 Last Admin: 04/27/20 00:00 Dose: 3 ml Documented by: [id number] Dexamethasone Sodium Phosphate (Decadron Pf) 10 mg IV NOW ONE Stop: 04/26/20 18:28 Last Admin: 04/26/20 19:08 Dose: 10 mg Documented by: [id number] Acetaminophen (Ofirmev) 1,000 mg in 100 mls @ 400 mls/hr IV NOW STA Stop: 04/26/20 16:05 Last Infusion: 04/26/20 16:43 Dose: 0 mls/hr Documented by: [id number] Admin: 04/26/20 16:28 Dose: 400 mls/hr Documented by: [id number] Ceftriaxone Sodium (Rocephin) 2,000 mg in 70 mls @ 140 mls/hr IV NOW STA Stop: 04/26/20 17:49 Last Infusion: 04/26/20 19:08 Dose: 0 mls/hr Documented by: [id number] Admin: 04/26/20 18:04 Dose: 140 mls/hr Documented by: [id number] Sodium Chloride (Nss) 500 mls @ 999 mls/hr IV .Q31M ONE Stop: 04/26/20 18:57 Last Infusion: 04/26/20 20:57 Dose: 0 mls/hr Documented by: [id number] Admin: 04/26/20 19:07 Dose: 999 mls/hr Documented by: [id number] Prochlorperazine (Compazine) 1 mls @ 1 mls/min IV ONE ONE Stop: 04/26/20 18:29 Last Admin: 04/26/20 19:07 Dose: 1 mls/min Documented by: [id number] Vancomycin HCl 2,000 mg/ (Sodium Chloride) 540 mls @ 200 mls/hr IV NOW ONE Stop: 04/26/20 22:02 Last Infusion: 04/26/20 23:57 Dose: 0 mls/hr Documented by: [id number] Admin: 04/26/20 20:42 Dose: 200 mls/hr Documented by: [id number] Potassium Chloride/Sodium Chloride (Normal Saline W/20 Meq Kcl) 20 meq in 1,000 mls @ 60 mls/hr IV .[id number] ONE Stop: 04/27/20 12:53 Last Infusion: 04/26/20 23:58 Dose: 0 mls/hr Documented by: [id number] Admin: 04/26/20 22:17 Dose: 60 mls/hr Documented by: [id number] Doxycycline Hyclate 100 mg/ (Dextrose) 110 mls @ 50 mls/hr IV NOW STA Stop: 04/26/20 23:35 Last Infusion: 04/26/20 23:57 Dose: 0 mls/hr Documented by: [id number] Admin: 04/26/20 22:17 Dose: 50 mls/hr Documented by: [id number] Discharge Plan Visit Data *Final* Discharge Date/Time: 04/26/20 22:58 Chief Complaint: Illness Stated Complaint: SYMPTOMS OF COVID ED Provider: Willie Sainz Discharge Problem: Cellulitis, Fever, Leukocytosis, Myalgia Patient Disposition: Admitted As Inpatient Discharge Instructions Interventions: ED Discharge Assessment Last Done: 04/26/20 22:58 Discharge Problem: Cellulitis Qualifiers: Site of cellulitis: extremity Site of cellulitis of extremity: lower extremity Laterality: left Qualified Code(s): L03.116 - Cellulitis of left lower limb
[2020-04-26] MEDS ORDERED: SODIUM CHLORIDE 0.9% 500 ML IV ONE (18:27)
[2020-04-26] MEDS ORDERED: DEXAMETHASONE **PF** INJ 10 MG/ML VIAL IV ONE (18:27)
[2020-04-26] MEDS ORDERED: PROCHLORPERAZINE 1 ML IV ONE (18:28)
[2020-04-26] MEDS ORDERED: VANCOMYCIN HCL 2,000 MG in SODIUM CHLORIDE 0.9% 500 ML IV ONE (19:21)
[2020-04-26] MEDS ORDERED: VANCOMYCIN CONSULT ACTIVE PRN (19:21)
[2020-04-26 19:28] LABS: Appearance Urine Cloudy (Clear); Bacteria Urine Automated Negative (Negative); Bilirubin Urine Negative (Negative); Blood Urine Negative (Negative); Color Urine Dark Yellow; Epithelial Cell Urine Auto >30 /lpf (0-5); Glucose Urine UA Negative (Negative); Ketones Urine Trace (Negative); Leukocyte Esterase Urine Negative (Negative); Nitrite Urine Negative (Negative); Protein Urine Negative (Negative); RBC Urine Automated 0-4 /hpf (0-4); Specific Gravity Urine 1.022 (1.000-1.030); Urobilinogen Urine Negative (Negative)
--- NOTE | 2020-04-26 20:09 | History & Physical Report ---
Date of Service April 26, 2020 Assessment & Plan (1) Sepsis: Possible sources : Viral RTI LLE cellulitis, history chronic lymphedema rule out DVT ? UTI hypertension, stable hyperlipidemia on statin Rx Hyperglycemia rule out DM past tobacco abuse Medical telemetry Cultures Supportive management for viral bronchitis Ceftriaxone for possible UTI and nonsuppurative LLE cellulitis LLE Dopplers rule out DVT Check hemoglobin A1c DVT prophylaxis. Lovenox subcu Full code Text document was generated using [employer] voice recognition software. It may contain grammatical or spelling errors. Kindly contact undersigned for clarification of any documentation item in question. History of Present Illness Chief Complaint: Fever, chills, body aches Primary Care Provider: Tia Hogan PA-C History obtained from patient and records. Medical history significant for hypertension, hyperlipidemia, history of vertebrobasilar artery syndrome as per records, past tobacco abuse, chronic lymphedema. Last confinement July 2017 for elective neck surgery under [facility] Spine service. Few days history of chronic body aches, dry cough fevers. Dry cough symptoms without chest pain or S OB. No known recent COVID-19 contacts. Denies aspiration. Patient complaining of achy right lower quadrant discomfort and urgency symptoms. No diarrhea. Left leg noted to be red as per patient. At the ER, patient received Decadron, vancomycin, and ceftriaxone for sepsis. Medical History as above Surgical History : Neck surgery, knee surgery, appendectomy, ovarian cyst removal, vaginal hysterectomy, Family History : Heart disease, aortic aneurysm, pulmonary fibrosis, stroke Personal/Social history : Past tobacco abuse, no EtOH intake, retired from assembly work Allergies Allergy/AdvReac Type Severity Reaction Status Date / Time cephalexin Allergy Intermediate ITCHY RASH Verified 04/26/20 16:47 Home Medications Home Medications Medication Instructions Recorded Confirmed Type aspirin [Aspir-81] 81 mg PO QAM 04/26/20 04/26/20 History betamethasone dipropionate 1 applic TOPICAL DIRECTED PRN 04/26/20 04/26/20 History biotin 5 mg PO QAM 04/26/20 04/26/20 History clobetasol 1 applic TOPICAL DIRECTED PRN 04/26/20 04/26/20 History hydrochlorothiazide 25 mg PO QAM 04/26/20 04/26/20 History ibuprofen 400 mg PO Q6H PRN 04/26/20 04/26/20 History lisinopril 40 mg PO QAM 04/26/20 04/26/20 History loratadine 10 mg PO DAILY PRN 04/26/20 04/26/20 History metoprolol succinate 25 mg PO QAM 04/26/20 04/26/20 History multivitamin 1 tab PO QAM 04/26/20 04/26/20 History naproxen sodium [Aleve] 440 mg PO BID PRN 04/26/20 04/26/20 History polyvinyl alcohol-povidone 1 drp OPHTHALMIC (EYE) DIRECTED 04/26/20 04/26/20 History PRN simvastatin 40 mg PO QPM 04/26/20 04/26/20 History Past Med/Surg History Medical History (Updated 04/27/20 @ 00:18 by Willie Sainz MD) HLD (hyperlipidemia) (Chronic) HTN (hypertension) (Chronic) Lymphedema Social History Preferred Language: Spanish Communication Ability: Effective School Inspector Required: No Beliefs That Will Affect Care: None Current Living Situation: Alone Other Information That Helps Us Care for You: No Feels Safe at Home: Yes Safety Concerns: Feels Safe At This Time Smoking Status: Former smoker Hx Alcohol Use: Yes Hx Substance Use: No Review of Systems Review of Systems: As per HPI, all 10 systems reviewed, all other ROS negative Physical Exam Physical Exam: GENERAL: Comfortable, obese, pleasant, no respiratory distress, occasionally with dry cough SKIN: Normal color, warm HEENT: [place] palpebral conjunctivae, no ptosis, dry buccal mucosa NECK : Supple, short neck, no tenderness CHEST : Decreased breath sounds, occasional expiratory wheezes, no tenderness HEART : RRR, no obvious murmurs ABDOMEN: Some distention, minimal right lower quadrant tenderness EXTREMITIES : Bilateral LE swelling, marked LLE erythema/induration with tenderness, no other conspicuous deformities noted NEUROLOGIC : Coherent, no facial asymmetry, no other gross focality Results & Data Results & Data ([facility]) Vital Signs (Past 12 Hours) Vital Signs Temp Pulse Pulse Resp BP BP Pulse Ox 04/26/20 19:11 37.0 C 74 18 121/49 L 95 04/26/20 18:05 37.3 C 75 20 96/49 L 95 04/26/20 16:43 37.8 C H 89 20 129/80 96 04/26/20 16:09 89 20 96 04/26/20 15:59 96 04/26/20 15:29 37.9 C H 100 H 20 156/106 H 96 Laboratory Results Laboratory Results WBC 14.63 K/uL (4.8-10.8) H 04/26/20 16:09 RBC 4.46 M/uL (4.2-5.4) 04/26/20 16:09 Hgb 13.6 g/dL (12.0-16.0) 04/26/20 16:09 Hct 40.4 % (37-47) 04/26/20 16:09 MCV 90.6 fL (80-100) 04/26/20 16:09 MCH 30.5 pg (25-34) 04/26/20 16:09 MCHC 33.7 g/dL (32-36) 04/26/20 16:09 RDW Std Deviation 42.5 fL (36.4-46.3) 04/26/20 16:09 RDW Coeff of [place] 12.9 % (11.5-14.5) 04/26/20 16:09 Plt Count 161 K/uL (130-400) 04/26/20 16:09 MPV 9.7 fL (7.4-10.4) 04/26/20 16:09 Immature Gran % (Auto) 0.1 % 04/26/20 16:09 Neut % (Auto) 89.6 % 04/26/20 16:09 Lymph % (Auto) 3.4 % 04/26/20 16:09 [place] % (Auto) 6.7 % 04/26/20 16:09 Eos % (Auto) 0.1 % 04/26/20 16:09 Baso % (Auto) 0.1 % 04/26/20 16:09 Neut # (Auto) 13.11 K/uL (1.4-6.5) H 04/26/20 16:09 Lymph # (Auto) 0.50 K/uL (1.2-3.4) L 04/26/20 16:09 [place] # (Auto) 0.98 K/uL (0.11-0.59) H 04/26/20 16:09 Eos # (Auto) 0.01 K/uL (0-0.5) 04/26/20 16:09 Baso # (Auto) 0.01 K/uL (0-0.2) 04/26/20 16:09 Immature Gran # (Auto) 0.02 K/uL (0.00-0.02) 04/26/20 16:09 ESR 14 mm/hr (0-21) 04/26/20 16:09 PT 10.8 Seconds (9.0-12.0) 04/26/20 16:09 INR 1.0 (0.9-1.1) 04/26/20 16:09 APTT 25.1 Seconds (21.0-31.0) 04/26/20 16:09 PTT Ratio 0.9 04/26/20 16:09 Sodium 137 mmol/L (136-145) 04/26/20 16:09 Potassium 3.5 mmol/L (3.5-5.1) 04/26/20 16:09 Chloride 104 mmol/L (98-107) 04/26/20 16:09 Carbon Dioxide 28 mmol/L (21-32) 04/26/20 16:09 Anion Gap 5.0 (3-11) 04/26/20 16:09 BUN 20 mg/dl (7-18) H 04/26/20 16:09 Creatinine 0.97 mg/dl (0.6-1.2) 04/26/20 16:09 Est Cr Clr Drug Dosing 54.7 ml/min 04/26/20 16:09 Est GFR ( Amer) 66.2 04/26/20 16:09 Est GFR (Non-Af Amer) 57.1 04/26/20 16:09 BUN/Creatinine Ratio 20.9 (10-20) H 04/26/20 16:09 Glucose 117 mg/dl (70-99) H 04/26/20 16:09 Lactate 1.2 mmol/L (0.4-2.0) 04/26/20 16:09 Calcium 8.8 mg/dl (8.5-10.1) 04/26/20 16:09 Phosphorus 2.3 mg/dl (2.5-4.9) L 04/26/20 16:09 Magnesium 2.0 mg/dl (1.8-2.4) 04/26/20 16:09 Total Bilirubin 1.5 mg/dl (0.2-1) H 04/26/20 16:09 Direct Bilirubin 0.4 mg/dl (0-0.2) H 04/26/20 16:09 AST 21 U/L (15-37) 04/26/20 16:09 ALT 25 U/L (12-78) 04/26/20 16:09 Alkaline Phosphatase 73 U/L (45-117) 04/26/20 16:09 Troponin I < 0.015 ng/ml (0-0.045) 04/26/20 16:09 C-Reactive Protein 5.36 mg/dl (0-0.29) H 04/26/20 16:09 NT-Pro-B Natriuret Pep 583 pg/ml (0-900) 04/26/20 16:09 Total Protein 7.4 gm/dl (6.4-8.2) 04/26/20 16:09 Albumin 3.8 gm/dl (3.4-5.0) 04/26/20 16:09 Globulin 3.6 gm/dl (2.5-4.0) 04/26/20 16:09 Albumin/Globulin Ratio 1.1 (0.9-2) 04/26/20 16:09 Urine Color Dark Yellow 04/26/20 19:00 Urine Appearance Cloudy (Clear) A 04/26/20 19:00 Urine pH 5.0 (4.5-7.5) 04/26/20 19:00 Ur Specific [place] 1.022 (1.000-1.030) 04/26/20 19:00 Urine Protein Negative (Negative) 04/26/20 19:00 Urine Glucose (UA) Negative (Negative) 04/26/20 19:00 Urine Ketones Trace (Negative) H 04/26/20 19:00 Urine Blood Negative (Negative) 04/26/20 19:00 Urine Nitrite Negative (Negative) 04/26/20 19:00 Urine Bilirubin Negative (Negative) 04/26/20 19:00 Urine Urobilinogen Negative (Negative) 04/26/20 19:00 Ur Leukocyte Esterase Negative (Negative) 04/26/20 19:00 Urine WBC (Auto) 1-5 /hpf (0-5) 04/26/20 19:00 Urine RBC (Auto) 0-4 /hpf (0-4) 04/26/20 19:00 U Hyaline Cast (Auto) 1-5 /lpf (0-5) 04/26/20 19:00 U Epithel Cells (Auto) >30 /lpf (0-5) H 04/26/20 19:00 Urine Bacteria (Auto) Negative (Negative) 04/26/20 19:[address] chest initial read: No pulmonary emboli CT abdomen pelvis initial read: No acute findings in the abdomen pelvis. Small hiatal hernia. Diverticulosis. Mildly prominent bilateral inguinal lymph nodes particularly on the left, largest measuring 11 mm. EKG as per my interpretation:Rate 95, NSR, LAD, LAFB, 1 AVB, no ischemia
[2020-04-26] MEDS ORDERED: NSS + 20MEQ KCL 20 MEQ/1,000 ML BAG IV ONE (20:14)
[2020-04-26] MEDS ORDERED: DOXYCYCLINE HYCLATE 100 MG in DEXTROSE 5% 100 ML IV STA (21:24)
[2020-04-26] MEDS ORDERED: OPTIRAY 320 125ml IV PRN (23:10)
[2020-04-26] MEDS ORDERED: ALBUT/IPRATROP 3MG/0.5MG NEB 3 ML VIAL NEB PRN (23:37)
[2020-04-26] MEDS ORDERED: ALBUT/IPRATROP 3MG/0.5MG NEB 3 ML VIAL NEB STA (23:37)
[2020-04-27] MEDS ORDERED: NSS + 20MEQ KCL 20 MEQ/1,000 ML BAG IV SCH (00:30)
[2020-04-27] MEDS: guaiFENesin 600 MG TABCR PO SCH ×3 (00:38→20:40)
[2020-04-27] MEDS ORDERED: NSS + 20MEQ KCL 20 MEQ/1,000 ML BAG IV ONE (01:18)
[2020-04-27 05:42] LABS: Basophils # (auto) 0.01 K/uL (0-0.2); Basophils % (auto) 0.1 %; Hematocrit (blood only) 35.5 % (37-47); Immature Granulocytes # (auto) 0.02 K/uL (0.00-0.02); Immature Granulocytes % (auto) 0.2 %; Lymphocytes # (auto) 0.65 K/uL (1.2-3.4); Mean Corpuscular Hemoglobin 30.2 pg (25-34); Mean Corpuscular Hgb Conc 33.8 g/dL (32-36); Mean Corpuscular Volume 89.4 fL (80-100); Mean Platelet Volume 9.8 fL (7.4-10.4); Monocytes # (auto) 0.23 K/uL (0.11-0.59); Monocytes % (auto) 1.8 %; Neutrophils # (auto) 12.01 K/uL (1.4-6.5); Neutrophils % (auto) 92.9 %; Platelet Count 168 K/uL (130-400); RDW Coefficient of Variation 12.8 % (11.5-14.5); RDW Standard Deviation 42.2 fL (36.4-46.3); Red Blood Count 3.97 M/uL (4.2-5.4); White Blood Count 12.92 K/uL (4.8-10.8)
[2020-04-27 05:57] LABS: Estimated Average Glucose 120 mg/dl; Hemoglobin A1C 5.8 % (4.5-5.6)
[2020-04-27 06:07] LABS: BUN Creatinine Ratio 26.2 (10-20); Creatinine Clr Calc Pharmacy 61.1 ml/min; Est GFR (African American) 76.6; Est GFR (Non-African American) 66.1; Potassium 3.4 mmol/L (3.5-5.1)
[2020-04-27] MEDS: METOPROLOL SUCC 25MG EXT REL TAB PO SCH (07:28)
[2020-04-27] MEDS: lisinopriL 40 MG TAB PO SCH (07:28)
[2020-04-27] MEDS: MULTIVITAMIN TAB PO SCH (07:28)
[2020-04-27] MEDS: ASPIRIN 81 MG ECTAB PO SCH (07:29)
[2020-04-27] MEDS: ENOXAPARIN INJ 40 MG/0.4 ML SYR SQ SCH (07:29)
--- NOTE | 2020-04-27 08:19 | Ultrasound Report ---
US venous doppler LE LT HISTORY: 74 years-old Female LLE swelling acute pain and swelling of the left lower extremity COMPARISON: None TECHNIQUE: Multiple real-time sonographic images of the left lower extremity deep venous structures w ere obtained assessing grayscale appearance, color and spectral flow FINDINGS: Study is limited secondary to lack of patient cooperation and also reported lower extremity pain. The patient was unable to tolerate compression. There is normal flow and phasicity of the imaged deep ve nous structures. Nonspecific subcutaneous edema of the lower leg. IMPRESSION: No sonographic evidence of deep venous thrombosis. ACT 112: Negative or not required by law. The above report was generated using voice recognition software. It may contain grammatical, syntax o r spelling errors. Electronically signed by: Gutierrez Sultana M.D. 04/27/2020 8:17 AM
[2020-04-27] MEDS ORDERED: POTASSIUM CHLORIDE 20 MEQ TABCR PO ONE (08:28)
[2020-04-27] MEDS ORDERED: DOXYCYCLINE HYCLATE 100 MG CAP PO SCH (09:00)
--- NOTE | 2020-04-27 09:07 | CT Scan Report ---
ABDOMEN AND PELVIS CT WITH IV CONTRAST HISTORY: Acute right lower quadrant abdominal pain rlq pain TECHNIQUE: Multiaxial CT images of the abdomen and pelvis were performed following the IV administrat ion of 1 cc of Optiray 320, A dose lowering technique was utilized adhering to the principles of ALA RA. COMPARISON STUDY: CTA of the chest of same day FINDINGS: Mild linear subsegmental bibasilar atelectasis/scarring. No pneumatosis or pneumoperitoneum. The imag ed inferior cardiac chambers are unremarkable. The liver is upper limits of normal in size. Patency o f the hepatic and portal veins. Spleen is mildly enlarged, 13.4 cm. Unremarkable appearance of the pa ncreas, gallbladder and adrenal glands. Kidneys are unremarkable. No obstructive uropathy. Partially decompressed urinary bladder with mild wall thickening. Hysterectomy. No adnexal mass lesions. Modera te mixed plaque of the abdominal aorta. No aneurysm. Mild wall thickening of the distal esophagus with small hiatal hernia. There is no bowel obstruction or bowel wall thickening. Colonic diverticulosis without acute diverticulitis. Moderate fecal retenti on. The appendix is not definitively seen. No secondary signs of acute appendicitis. Nonspecific mild ly enlarged bilateral inguinal chain lymph nodes measure up to 1.4 cm in short axis. Multilevel spond ylitic spurring and facet arthrosis results in multilevel central canal and foraminal narrowing of th e lumbar spine. Lumbar levoscoliosis. Retrolisthesis L2 on L3 is likely secondary to long-standing fa cet arthrosis. IMPRESSION: 1. No acute intra-abdominal or intrapelvic abnormality. 2. No bowel obstruction or bowel wall thickening. 3. Colonic diverticulosis without acute diverticulitis. 4. Moderate fecal retention. 5. Mild distal esophageal wall thickening with small hiatal hernia. 6. Nonspecific bilateral inguinal chain adenopathy. ACT 112: Negative or not required by law. The above report was generated using voice recognition software. It may contain grammatical, syntax o r spelling errors. Electronically signed by: Gutierrez Sultana M.D. 04/27/2020 9:06 AM
--- NOTE | 2020-04-27 09:11 | CT Scan Report ---
CT angio chest PE protocol CT DOSE: 1636.82 mGy.cm HISTORY: 74 years-old Female with PE, tachypnea. Acute chest pain with tachycardia TECHNIQUE: Multiple CTA images of the chest were obtained after the intravenous administration of 1 m l Optiray 320. Coronal and sagittal MIPS were obtained from the axial data set and were submitted fo r review. All measurements were obtained according to NASCET criteria. A dose lowering technique was utilized adhering to the principles of ALARA. COMPARISON: CT abdomen and pelvis of same day FINDINGS: CTA: Mild multichamber cardiomegaly. No pericardial effusion. Mild coronary artery calcifications. No thor acic aortic aneurysm or dissection. Mild descending thoracic aortic tortuosity. Moderate mixed plaque of the thoracic aorta and proximal great vessels which appear patent. Pulmonary arterial tree is opa cified to level the subsegmental branches and demonstrates no filling defects to suggest thromboembol ic disease. CT CHEST: Unremarkable thyroid. No pathologically enlarged lymph nodes. Trace pleural effusions. No pneumothora x, overt pulmonary edema or airspace consolidation typical for pneumonia. Minimal subsegmental bibasi lar atelectasis. There are no suspicious pulmonary nodules or masses. Central airways are patent. Mild distal esophageal wall thickening with small hiatal hernia. Hepatic steatosis. Soft tissues are unremarkable. Demineralized appearance the bones with multilevel degenerative changes of the spine. N o acute fracture.. IMPRESSION: 1. No acute intrathoracic abnormality, specifically there is no evidence of pulmonary thromboembolic disease. 2. Mild cardiomegaly. 3. Mild distal esophageal wall thickening with small hiatal hernia. 4. Hepatic steatosis. ACT 112: Negative or not required by law. The above report was generated using voice recognition software. It may contain grammatical, syntax o r spelling errors. Electronically signed by: Gutierrez Sultana M.D. 04/27/2020 9:10 AM
[2020-04-27] MEDS: DOXYCYCLINE HYCLATE 100 MG CAP PO SCH ×2 (12:37→20:40)
--- NOTE | 2020-04-27 14:25 | Electrocardiogram Report ---
Test Reason : Blood Pressure : / mmHG Vent. Rate : 095 BPM Atrial Rate : 095 BPM P-R Int : 196 ms QRS Dur : 088 ms QT Int : 336 ms P-R-T Axes : 062 -14 038 degrees QTc Int : 422 ms Normal sinus rhythm Low voltage QRS Borderline ECG When compared with ECG of 21-JUL-2017 14:27, Vent. rate has increased BY 38 BPM Confirmed by Nabeel Mora ([id number]) on 04/27/2020 2:25:24 PM Referred By: REFERRED SELF Confirmed By:Nabeel Mora
--- NOTE | 2020-04-27 15:20 | Hospitalist Progress Note ---
Date of Service April 27, 2020 Assessment & Plan (1) Sepsis: URI Left leg cellulitis H/O chronic bilateral lymphedema, left lower extremity erythema -Venous Doppler:No sonographic evidence of deep venous thrombosis. -CTA:No acute intrathoracic abnormality, specifically there is no evidence of pulmonary thromboembolic disease. Mild cardiomegaly. Mild distal esophageal wall thickening with small hiatal hernia. Hepatic steatosis. -COVID: Negative -Blood Cx:pending Leukocytosis trending down -Continue ceftriaxone, Doxycycline -No significant pain -Wound Care Constipation: --CT ABD:No acute intra-abdominal or intrapelvic abnormality. No bowel obstruction or bowel wall thickening. Colonic diverticulosis without acute diverticulitis. Moderate fecal retention. Mild distal esophageal wall thickening with small hiatal hernia. Nonspecific bilateral inguinal chain adenopathy. 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 Hypertension BP relatively low Continue lisinopril, metoprolol with holding parameters Monitor Hyperlipidemia on statin Past tobacco abuse DVT Px: Lovenox SQ Code Status Full code Disposition PT/OT prior to discharge Admission and Anticipated Discharge Date Admission Date: April 26, 2020 Subjective Patient is seen and examined at bedside Complains of frontal headache this morning Also states having chronic dry cough since 2 weeks Denies any leg pain States having chronic left leg erythema Denies any chest pain, shortness of breath, dizziness, nausea, abdominal pain afebrile today Review of Systems Review of Systems: All systems reviewed & are unremarkable except as noted in HPI & below Physical Exam Physical Exam: Physical Exam: Vitals signs as noted above General Appearance:Obese, no apparent distress Head: normocephalic, Atraumatic Eyes: normal inspection, EOMI Neck: supple, Trachea midline Respiratory/Chest: Decreased breath sounds, CTA Cardiovascular: S1, S2, No murmur Abdomen/GI:Soft, Non tender, Bowel sounds present Extremities/Musculoskelatal:normal inspection, + B/L Lymphedema, Left leg erythema--chronic as per patient Open blisters on left leg Neurologic/Psych:AAOX3, grossly no focal neurological deficits Skin: normal color, warm Results & Data Results & Data ([facility]) Vital Signs (Past 12 Hours) Vital Signs Temp Pulse Resp BP BP Pulse Ox 04/27/20 14:50 37.1 C 66 19 106/52 L 98 04/27/20 11:52 36.9 C 67 18 112/69 97 04/27/20 08:03 36.6 C 61 18 111/66 94 Laboratory Results Short CBC 04/26/20 04/27/20 Range/Units 16:09 05:19 WBC 14.63 H 12.92 H (4.8-10.8) K/uL Hgb 13.6 12.0 (12.0-16.0) g/dL Hct 40.4 35.5 L (37-47) % Plt Count 161 168 (130-400) K/uL BMP 04/26/20 04/27/20 16:09 05:19 Sodium 137 138 Potassium 3.5 3.4 L Chloride 104 105 Carbon Dioxide 28 26 BUN 20 H 23 H Creatinine 0.97 0.86 Glucose 117 H 190 H Calcium 8.8 8.0 L Cardiac Enzymes 04/26/20 Range/Units 16:09 Troponin I < 0.015 (0-0.045) ng/ml Liver Function 04/26/20 Range/Units 16:09 Total Bilirubin 1.5 H (0.2-1) mg/dl Direct Bilirubin 0.4 H (0-0.2) mg/dl AST 21 (15-37) U/L ALT 25 (12-78) U/L Alkaline Phosphatase 73 (45-117) U/L Albumin 3.8 (3.4-5.0) gm/dl Urine 04/26/20 Range/Units 19:00 Urine Color Dark Yellow Urine Appearance Cloudy A (Clear) Urine pH 5.0 (4.5-7.5) Ur Specific [place] 1.022 (1.000-1.030) Urine Protein Negative (Negative) Urine Glucose (UA) Negative (Negative)
[2020-04-27] MEDS ORDERED: POLYETHYLENE (MIRALAX) 17 GM PACK PO PRN (15:32)
[2020-04-27] MEDS ORDERED: DOCUSATE SODIUM 100 MG CAP PO PRN (15:32)
[2020-04-27] MEDS ORDERED: cefTRIAXone SODIUM 2,000 MG in DEXTROSE 5% 50 ML IV SCH (18:00)
[2020-04-27] MEDS: NEOMYCIN/POLYMYX/BACITR OINT 15 GM TUBE EXT SCH (20:39)
[2020-04-27] MEDS ORDERED: SIMVASTATIN 40 MG TAB PO SCH (21:00)
[2020-04-27] MEDS: ACETAMINOPHEN 325 MG TAB PO PRN (23:27)
[2020-04-28 07:05] VITALS: O2SAT 98
[2020-04-28 07:23] LABS: Hematocrit (blood only) 37.7 % (37-47); Hemoglobin 12.1 g/dL (12.0-16.0); Mean Corpuscular Hemoglobin 29.7 pg (25-34); Mean Corpuscular Hgb Conc 32.1 g/dL (32-36); Mean Corpuscular Volume 92.4 fL (80-100); Mean Platelet Volume 10.3 fL (7.4-10.4); Platelet Count 191 K/uL (130-400); RDW Standard Deviation 43.9 fL (36.4-46.3); Red Blood Count 4.08 M/uL (4.2-5.4); White Blood Count 11.89 K/uL (4.8-10.8)
[2020-04-28 07:55] LABS: BUN Creatinine Ratio 30.6 (10-20); Calcium 7.7 mg/dl (8.5-10.1); Creatinine Clr Calc Pharmacy 63.3 ml/min; Est GFR (African American) 79.9; Phosphorus 1.9 mg/dl (2.5-4.9); Potassium 4.1 mmol/L (3.5-5.1)
[2020-04-28] MEDS: NEOMYCIN/POLYMYX/BACITR OINT 15 GM TUBE EXT SCH (08:01)
[2020-04-28] MEDS: METOPROLOL SUCC 25MG EXT REL TAB PO SCH (08:02)
[2020-04-28] MEDS: lisinopriL 40 MG TAB PO SCH (08:02)
[2020-04-28] MEDS: DOXYCYCLINE HYCLATE 100 MG CAP PO SCH (08:02)
[2020-04-28] MEDS: ASPIRIN 81 MG ECTAB PO SCH (08:02)
[2020-04-28] MEDS: ENOXAPARIN INJ 40 MG/0.4 ML SYR SQ SCH (08:02)
[2020-04-28] MEDS: guaiFENesin 600 MG TABCR PO SCH (08:02)
[2020-04-28] MEDS: MULTIVITAMIN TAB PO SCH (08:02)
[2020-04-28] MEDS: ACETAMINOPHEN 325 MG TAB PO PRN (08:05)
[2020-04-28] MEDS: POT PHOSPHATE MONOBASIC W/ SOD TAB PO SCH ×2 (09:41→13:00)
[2020-04-28 11:20] VITALS: BP 105/66; PULSE 61; TEMP 97.7
--- NOTE | 2020-04-28 14:08 | Hospitalist Progress Note ---
Date of Service April 28, 2020 Assessment & Plan (1) Sepsis: URI Left leg cellulitis H/O chronic bilateral lymphedema, left lower extremity erythema -Venous Doppler:No sonographic evidence of deep venous thrombosis. -CTA:No acute intrathoracic abnormality, specifically there is no evidence of pulmonary thromboembolic disease. Mild cardiomegaly. Mild distal esophageal wall thickening with small hiatal hernia. Hepatic steatosis. -COVID: Negative -Blood Cx:No growth to date Leukocytosis trended down -Continue ceftriaxone, Doxycycline -No significant pain -Wound Care And discharged on p.o. antibiotics Will increase HCTZ to 50 mg daily to help with leg edema Constipation: --CT ABD:No acute intra-abdominal or intrapelvic abnormality. No bowel obstruction or bowel wall thickening. Colonic diverticulosis without acute diverticulitis. Moderate fecal retention. Mild distal esophageal wall thickening with small hiatal hernia. Nonspecific bilateral inguinal chain adenopathy. --continue Bowel regimen Resolved Hypokalemia Hypophosphatemia Replete electrolytes as needed Prediabetes HbA1C:5.8 [place] healthy lifestyle changes Hypertension BP relatively low Continue lisinopril, metoprolol with holding parameters Monitor Hyperlipidemia on statin Past tobacco abuse DVT Px: Lovenox SQ Code Status Full code Admission and Anticipated Discharge Date Admission Date: April 26, 2020 Subjective Patient is seen and examined at bedside Eager to get discharged Cough improved Denies any leg pain Offers no new complaints Prefers to be discharged today. Denies any chest pain, shortness of breath, dizziness, nausea, abdominal pain Leukocytosis improving Review of Systems Review of Systems: All systems reviewed & are unremarkable except as noted in HPI & below Physical Exam Physical Exam: Physical Exam: Vitals signs as noted above General Appearance:Obese, no apparent distress Head: normocephalic, Atraumatic Eyes: normal inspection, EOMI Neck: supple, Trachea midline Respiratory/Chest: Decreased breath sounds, CTA Cardiovascular: S1, S2, No murmur Abdomen/GI:Soft, Non tender, Bowel sounds present Extremities/Musculoskelatal:normal inspection, + B/L Lymphedema, Left leg erythema--chronic as per patient Open blisters on left leg Neurologic/Psych:AAOX3, grossly no focal neurological deficits Skin: normal color, warm Results & Data Results & Data ([facility]) Vital Signs (Past 12 Hours) Vital Signs Temp Pulse Resp BP BP Pulse Ox 04/28/20 11:19 36.5 C 61 18 105/66 98 04/28/20 07:04 36.7 C 59 L 19 135/80 98 04/28/20 03:16 37.1 C 59 L 19 132/71 97 Laboratory Results Short CBC 04/28/20 Range/Units 06:39 WBC 11.89 H (4.8-10.8) K/uL Hgb 12.1 (12.0-16.0) g/dL Hct 37.7 (37-47) % Plt Count 191 (130-400) K/uL BMP 04/28/20 06:39 Sodium 140 Potassium 4.1 D Chloride 110 H Carbon Dioxide 26 BUN 25 H Creatinine 0.83 Glucose 135 H Calcium 7.7 L
--- NOTE | 2020-04-28 14:24 | Discharge Summary ---
Date of Service April 28, 2020 Admission HPI Per Admitting Provider History obtained from patient and records. Medical history significant for hypertension, hyperlipidemia, history of vertebrobasilar artery syndrome as per records, past tobacco abuse, chronic lymphedema. Last confinement July 2017 for elective neck surgery under [facility] service. Few days history of chronic body aches, dry cough fevers. Dry cough symptoms without chest pain or S OB. No known recent COVID-19 contacts. Denies aspiration. Patient complaining of achy right lower quadrant discomfort and urgency symptoms. No diarrhea. Left leg noted to be red as per patient. At the ER, patient received Decadron, vancomycin, and ceftriaxone for sepsis. Medical History as above Surgical History : Neck surgery, knee surgery, appendectomy, ovarian cyst remova l, vaginal hysterectomy, Family History : Heart disease, aortic aneurysm, pulmonary fibrosis, stroke Personal/Social history : Past tobacco abuse, no EtOH intake, retired from assembly work Admission Exam Per Admitting Provider Physical Exam Physical Exam: GENERAL: Comfortable, obese, pleasant, no respiratory distress, occasionally with dry cough SKIN: Normal color, warm HEENT: [place] palpebral conjunctivae, no ptosis, dry buccal mucosa NECK : Supple, short neck, no tenderness CHEST : Decreased breath sounds, occasional expiratory wheezes, no tenderness HEART : RRR, no obvious murmurs ABDOMEN: Some distention, minimal right lower quadrant tenderness EXTREMITIES : Bilateral LE swelling, marked LLE erythema/induration with tenderness, no other conspicuous deformities noted NEUROLOGIC : Coherent, no facial asymmetry, no other gross focality Principal Diagnosis Left leg cellulitis Possible bronchitis Hypokalemia Hypophosphatemia Discharge Data Allergies Allergy/AdvReac Type Severity Reaction Status Date / Time cephalexin Allergy Intermediate ITCHY RASH Verified 04/26/20 16:47 Consultations 04/26/20 19:20 ED Decision to Admit Stat Procedures Performed -Venous Doppler:No sonographic evidence of deep venous thrombosis. -CTA:No acute intrathoracic abnormality, specifically there is no evidence of pulmonary thromboembolic disease. Mild cardiomegaly. Mild distal esophageal wall thickening with small hiatal hernia. Hepatic steatosis. -CT ABD:No acute intra-abdominal or intrapelvic abnormality. No bowel obstruction or bowel wall thickening. Colonic diverticulosis without acute diverticulitis. Moderate fecal retention. Mild distal esophageal wall thickening with small hiatal hernia. Nonspecific bilateral inguinal chain adenopathy. Ordered Studies 04/26/20 22:06 CT abd pelvis IV con only Urgent CT angio chest PE protocol Urgent 04/27/20 22:06 US venous doppler LE LT Urgent Hospital Course (1) Sepsis: URI Left leg cellulitis H/O chronic bilateral lymphedema, left lower extremity erythema -Venous Doppler:No sonographic evidence of deep venous thrombosis. -CTA:No acute intrathoracic abnormality, specifically there is no evidence of pulmonary thromboembolic disease. Mild cardiomegaly. Mild distal esophageal wall thickening with small hiatal hernia. Hepatic steatosis. -COVID: Negative -Blood Cx:No growth to date Leukocytosis trended down -Continue ceftriaxone, Doxycycline -No significant pain -Wound Care And discharged on p.o. antibiotics Will increase HCTZ to 50 mg daily to help with leg edema Constipation: --CT ABD:No acute intra-abdominal or intrapelvic abnormality. No bowel obstruction or bowel wall thickening. Colonic diverticulosis without acute diverticulitis. Moderate fecal retention. Mild distal esophageal wall thickening with small hiatal hernia. Nonspecific bilateral inguinal chain adenopathy. --continue Bowel regimen Resolved Hypokalemia Hypophosphatemia Replete electrolytes as needed Prediabetes HbA1C:5.8 Counter Clerk healthy lifestyle changes Hypertension BP relatively low Continue lisinopril, metoprolol with holding parameters Monitor Hyperlipidemia on statin Past tobacco abuse DVT Px: Lovenox SQ Code Status Full code Total Time Total Time Spent Total Time Spent (In Minutes): 38 minutes Total Time Includes: Examination of the Patient, Discharge Planning, Medication Reconciliation, Communication With Other Providers and Other Discharge Plan Discharge Items Patient Disposition: Home - Self-Care Reason For Visit: SEPSIS Discharge Diagnosis: Left leg cellulitis Possible bronchitis Hypokalemia Hypophosphatemia Activity: Resume your previous activity Exercise/Sports: Gradually increase as tolerated Non-emergency contact: Primary Care Provider Call non-emergency contact if: you have any medication questions, your symptoms worsen, your pain is not controlled, your pain is worsening, your pain is unusual for you, your pain is concerning for you, you have a fever, your wound has increased redness, your wound has increased drainage and your wound pain has increased Follow-up/Referrals: Tia Hogan PA-C [Primary Care Provider] - Diet: Heart Healthy Addtl Attending Provider Instructions: Follow up with your PCP Tia Hogan PA-C in 1 week Complete the antibiotic course as prescribed. Your hydrochlorothiazide is increased from 25mg to 50 mg daily. Discussed with your physician for further adjustments. Your blood cultures are pending at the time of discharge. Follow-up with your physician for results. Minimize NSAIDs use like ibuprofen (Advil, Motrin, Nuprin), naproxen, diclofenac etc as able. If your pain is uncontrolled, discussed with your physician for further assistance. Seek immediate medical attention if your symptoms reoccur or worsen Pending Studies at Discharge: Yes Studies:: Blood Culture Stand-Alone Forms: My [facility], Smoking Cessation Medications and DC Order Prescriptions: New doxycycline hyclate 100 mg Capsule 100 mg PO BID 7 Days Qty: 14 RF: 0 polyethylene glycol 3350 [Miralax] 17 gram Powder In Packet 17 g PO DAILY PRN (Reason: constipation) 15 Days Qty: 15 RF: 0 Phospha 250 Neutral 250 mg Tablet 1 tab PO QID 1 Days Qty: 4 RF: 0 guaifenesin [Mucinex] 600 mg Tablet Extended Release 12hr 600 mg PO Q12 7 Days Qty: 14 RF: 0 hydrochlorothiazide 50 mg tablet 50 mg PO DAILY Qty: 30 RF: 0 Continued multivitamin Tablet 1 tab PO QAM RF: 0 aspirin [Aspir-81] 81 mg Tablet,Delayed Release (Dr/Ec) 81 mg PO QAM RF: 0 simvastatin 40 mg tablet 40 mg PO QPM RF: 0 ibuprofen 200 mg Tablet 400 mg PO Q6H PRN (Reason: Pain) RF: 0 betamethasone dipropionate 0.05 % Cream 1 applic TOPICAL DIRECTED PRN (Reason: Skin Irritation) RF: 0 metoprolol succinate 25 mg tablet extended release 24 hr 25 mg PO QAM RF: 0 clobetasol 0.05 % Ointment 1 applic TOPICAL DIRECTED PRN (Reason: Skin Irritation) RF: 0 lisinopril 40 mg tablet 40 mg PO QAM RF: 0 loratadine 10 mg Tablet 10 mg PO DAILY PRN (Reason: Congestion) RF: 0 polyvinyl alcohol-povidone 0.5-0.6 % Drops 1 drp OPHTHALMIC (EYE) DIRECTED PRN (Reason: Dry Eyes) RF: 0 biotin 5 mg Tablet 5 mg PO QAM RF: 0 Discontinued naproxen sodium [Aleve] 220 mg Tablet 440 mg PO BID PRN (Reason: Pain) RF: 0 hydrochlorothiazide 25 mg Tablet 25 mg PO QAM RF: 0 Discharge Orders: Discharge Order (Routine); Ordered 04/28/20 Ordered By: Aquiles Ham Admission Data Admit Date/Time: 04/26/20 22:09 Attending Provider: Aquiles Ham Admit Provider: Mikhail Waddell Primary Care Provider: Tia Hogan Other Providers: Mikhail Waddell Other Interventions: Discharge Summary Assessment (RN) Last Done: 04/28/20 15:04 DC Date/Time DO NOT enter until pt leaves facility: 04/28/20 16:16
== END 2020-04-28 16:16 | disposition home or self-care (01) | DRG 872 ==
LOC: ED 14:56 → 2N 22:09

== ENCOUNTER 2021-04-29 10:15 | Inpatient (IN) ==
[2021-04-29] MEDS ORDERED: KETOROLAC TROMETHAMINE 15 MG/ML VIAL IV ONE (11:13)
[2021-04-29] MEDS ORDERED: ACETAMINOPHEN 1,000 MG/100 ML VIAL IV STA (11:13)
--- NOTE | 2021-04-29 11:15 | Emergency Department Note ---
ED Visit Note This patient was seen in concert with Dr. Damico and we discussed and agreed upon the history, physical, assessment and plan. See attending's note for details. . Resident Activity Tracking Resident Involvement: Resident Care Provided Care Provided: Adult ED
[2021-04-29] MEDS ORDERED: cefTRIAXone SODIUM 1,000 MG/50 ML BAG IV STA ×2 (11:23→12:45)
[2021-04-29 11:28] LABS: Eosinophils # (auto) 0.01 K/uL (0-0.5); Eosinophils % (auto) 0.1 %; Hematocrit (blood only) 36.9 % (37-47); Hemoglobin 12.4 g/dL (12.0-16.0); Immature Granulocytes # (auto) 0.09 K/uL (0.00-0.02); Immature Granulocytes % (auto) 0.5 %; Lymphocytes # (auto) 0.75 K/uL (1.2-3.4); Lymphocytes % (auto) 4.4 %; Mean Corpuscular Hgb Conc 33.6 g/dL (32-36); Mean Corpuscular Volume 89.1 fL (80-100); Mean Platelet Volume 9.7 fL (7.4-10.4); Monocytes # (auto) 1.34 K/uL (0.11-0.59); Monocytes % (auto) 7.9 %; Neutrophils # (auto) 14.84 K/uL (1.4-6.5); Neutrophils % (auto) 87.1 %; Platelet Count 181 K/uL (130-400); RDW Coefficient of Variation 13.3 % (11.5-14.5); RDW Standard Deviation 43.8 fL (36.4-46.3); Red Blood Count 4.14 M/uL (4.2-5.4); White Blood Count 17.03 K/uL (4.8-10.8)
[2021-04-29 11:50] LABS: Albumin Globulin Ratio 0.9 (0.9-2); Albumin Level 3.3 gm/dl (3.4-5.0); BUN Creatinine Ratio 18.2 (10-20); Bilirubin,Total 1.7 mg/dl (0.2-1); Calcium 8.6 mg/dl (8.5-10.1); Est GFR (African American) 45.3 ml/min; Est GFR (Non-African American) 39.1 ml/min; Globulin 3.8 gm/dl (2.5-4.0); Potassium 3.7 mmol/L (3.5-5.1); Total Protein 7.1 gm/dl (6.4-8.2)
--- NOTE | 2021-04-29 12:48 | Emergency Department Note ---
History of Present Illness General Chief complaint: Infection, Wound Stated complaint: INFECTION IN LT LEG,UNABLE TO WALK ON IT NOW Time Seen by Provider: 04/29/21 10:58 Source: patient Mode of arrival: ambulatory Limitations: no limitations History of Present Illness Provider complaint: Cellulitis Maximum Pain Intensity: 2 This is a 75-year-old female who presents to the ED with a chief complaint of left leg cellulitis. The patient reports history of the same about a year ago. She states that 2 or 3 days ago she noticed increasing redness in her leg as well as some increased discomfort. She has a history of lymphedema chronically and has had cellulitis in this leg in the past. Denies any fevers. No nausea vomiting. No additional complaints this time. Has not taken any medication to help it. Home Medications Medication Instructions Recorded Confirmed Type betamethasone dipropionate 1 applic TOPICAL DIRECTED PRN 04/26/20 04/29/21 History clobetasol 1 applic TOPICAL DIRECTED PRN 04/26/20 04/29/21 History ibuprofen 400 mg PO Q6H PRN 04/26/20 04/29/21 History lisinopril 40 mg PO QAM 04/26/20 04/29/21 History loratadine 10 mg PO DAILY PRN 04/26/20 04/29/21 History metoprolol succinate 25 mg PO QAM 04/26/20 04/29/21 History multivitamin 1 tab PO QAM 04/26/20 04/29/21 History polyvinyl alcohol-povidone 1 drp OPHTHALMIC (EYE) DIRECTED 04/26/20 04/29/21 History PRN simvastatin 40 mg PO QPM 04/26/20 04/29/21 History hydrochlorothiazide 50 mg PO DAILY #30 tab 04/28/20 04/29/21 Rx aspirin [Aspir-81] 81 mg PO QAM 04/29/21 04/29/21 History biotin 1 mg PO DAILY 04/29/21 04/29/21 History Allergies Allergy/AdvReac Type Severity Reaction Status Date / Time cephalexin Allergy Intermediate ITCHY RASH Verified 04/29/21 13:50 Past Med/Surg History Medical History HLD (hyperlipidemia) HTN (hypertension) Lymphedema Surgical History H/O dilation and curettage H/O vaginal hysterectomy History of appendectomy History of knee replacement procedure of left knee History of knee replacement procedure of right knee Family History Other Heart disease Lung disease Stroke Social History Smoking Status: Never smoker Smoking End Date: 1969; Hx Alcohol Use: No Hx Substance Use: No Preferred Language: Kazakh Communication Ability: Effective Aviation Program Manager Required: No Beliefs That Will Affect Care: None Current Living Situation: Alone Other Information That Helps Us Care for You: No Feels Safe at Home: Yes Safety Concerns: Feels Safe At This Time Assistive Devices: Denture - Upper and Glasses Review of Systems A total of 10 systems reviewed and were otherwise negative Physical Exam Vital Signs Vital Signs - 24 hr 04/29/21 10:16 04/29/21 10:28 Temperature 37.2 C 37.2 C Temperature Source Oral Temporal Artery Scan Pulse Rate 105 H Pulse Rate [Right] 85 Pulse Rhythm [Right] Regular Pulse Strength [Right] Normal Respiratory Rate 20 20 Respiratory Effort / Characteristics Non-Labored Respiratory Depth Normal Respiratory Pattern Regular Blood Pressure 129/71 Blood Pressure [Right Arm] 142/76 H Blood Pressure Mean 90 Blood Pressure Mean [Right Arm] 98 Blood Pressure Position [Right Arm] Lying Pulse Oximetry 99 95 Oxygen Delivery Method Room Air Room Air Sepsis Recent Fever Within 48 Hours No Sepsis New/Unexplained Change in Mental Status N/A Sepsis Action Taken by Nursing No Action Required CONSTITUTIONAL/VITAL SIGNS: Reviewed / noted above. GENERAL: Non-toxic in appearance. INTEGUMENTARY: Warm, dry, and [place]. HEAD: Normocephalic. EYES: without scleral icterus or trauma. ENT/OROPHARYNX: clear and moist. LYMPHADENOPATHY/NECK: Is supple without lymphadenopathy or meningismus. RESPIRATORY: Lungs clear and equal. CARDIOVASCULAR: Regular rate and rhythm. GI/ABDOMEN: Soft and nontender. No organomegaly or pulsatile mass. No rebound or guarding. Normal bowel sounds. EXTREMITIES: Warm and well perfused. Patient has erythema to the left leg both below the knee as well as above the knee. There is increased warmth especially in the medial aspect of the inner thigh. BACK: No CVA tenderness. NEUROLOGICAL: Intact without focal deficits. PSYCHIATRIC: normal affect. MUSCULOSKELETAL: Normally developed with good muscle tone. TRIAGE NURSING DOCUMENTATION REVIEWED. Course Administered Medications Acetaminophen (Acetaminophen 325 Mg Tab) 650 mg PO Q4H PRN PRN Reason: pain/fever Stop: 05/29/21 16:10 Last Admin: 04/29/21 18:19 Dose: 650 mg Documented by: [id number] Acetaminophen (Acetaminophen 500 Mg Tab) 1,000 mg PO Q8 NEFTALY Stop: 05/31/21 21:59 Last Admin: 05/01/21 21:45 Dose: 1,000 mg Documented by: [id number] Docusate Sodium (Docusate Sodium 100 Mg Cap) 100 mg PO BID NEFTALY Stop: 05/31/21 20:59 Last Admin: 05/01/21 20:19 Dose: 100 mg Documented by: [id number] Furosemide (Furosemide 40 Mg Tab) 40 mg PO QAM NEFTALY Stop: 05/30/21 11:44 Last Admin: 05/01/21 08:19 Dose: 40 mg Documented by: [id number] Admin: 04/30/21 12:37 Dose: 40 mg Documented by: [id number] Hydromorphone HCl (Hydromorphone Inj 0.5 Mg/0.5 Ml Syr) 0.5 mg IV Q3H PRN PRN Reason: Pain Stop: 05/13/21 20:23 Last Admin: 05/01/21 13:09 Dose: 0.5 mg Documented by: [id number] Admin: 05/01/21 03:04 Dose: 0.5 mg Documented by: [id number] Admin: 04/30/21 23:55 Dose: 0.5 mg Documented by: [id number] Admin: 04/30/21 19:27 Dose: 0.5 mg Documented by: [id number] Admin: 04/30/21 15:48 Dose: 0.5 mg Documented by: [id number] Admin: 04/30/21 12:39 Dose: 0.5 mg Documented by: [id number] Admin: 04/30/21 09:59 Dose: 0.5 mg Documented by: [id number] Ceftriaxone Sodium 2,000 mg/ (Dextrose) 70 mls @ 100 mls/hr IV Q24H NEFTALY; [place] col Stop: 05/06/21 11:59 Last Infusion: 05/01/21 14:29 Dose: 0 mls/hr Documented by: [id number] Admin: 05/01/21 13:14 Dose: 100 mls/hr Documented by: [id number] Infusion: 04/30/21 13:41 Dose: 0 mls/hr Documented by: [id number] Admin: 04/30/21 12:42 Dose: 100 mls/hr Documented by: [id number] Vancomycin HCl 1,500 mg/ (Sodium Chloride) 530 mls @ 200 mls/hr IV Q18H [facility] Stop: 06/12/21 11:59 Last Infusion: 05/01/21 17:37 Dose: 0 mls/hr Documented by: [id number] Admin: 05/01/21 13:14 Dose: 200 mls/hr Documented by: [id number] Sodium Chloride (Nss 1000ml) 1,000 mls @ 100 mls/hr IV .Q10H [facility] Stop: 05/02/21 06:00 Last Admin: 05/01/21 22:17 Dose: Not Given Documented by: [id number] Infusion: 05/01/21 22:17 Dose: 0 mls/hr Documented by: [id number] Admin: 05/01/21 19:57 Dose: 100 mls/hr Documented by: [id number] Metoprolol Succinate (Metoprolol Succ 25mg Ext Rel Tab) [facility] [place] Stop: 05/30/21 08:59 Last Admin: 05/01/21 08:20 Dose: 25 mg Documented by: [id number] Admin: 04/30/21 08:20 Dose: 25 mg Documented by: [id number] Multivitamins (Multivitamin Tab) 1 tab [facility] [place] Stop: 05/30/21 08:59 Last Admin: 05/01/21 08:19 Dose: 1 tab Documented by: [id number] Admin: 04/30/21 08:20 Dose: 1 tab Documented by: [id number] Oxycodone HCl (Oxycodone Hcl Ir 5 Mg Tab (Immediate Release)) 5 mg PO Q4H PRN PRN Reason: Pain Stop: 05/14/21 13:35 Last Admin: 05/01/21 12:28 Dose: 5 mg Documented by: [id number] Admin: 05/01/21 08:18 Dose: 5 mg Documented by: [id number] Admin: 05/01/21 05:13 Dose: 5 mg Documented by: [id number] Admin: 04/30/21 14:02 Dose: 5 mg Documented by: [id number] Sennosides (Senna 8.6 Mg Tab) 17.2 mg PO HS [facility] Stop: 05/31/21 20:59 Last Admin: 05/01/21 20:19 Dose: 17.2 mg Documented by: [id number] Simvastatin (Simvastatin 40 Mg Tab) 40 mg PO QPM [facility] Stop: 05/29/21 20:59 Last Admin: 05/01/21 20:16 Dose: 40 mg Documented by: [id number] Admin: 04/30/21 20:25 Dose: 40 mg Documented by: [id number] Admin: 04/29/21 20:09 Dose: 40 mg Documented by: [id number] Tramadol HCl (Tramadol Hcl 50 Mg Tablet) 25 - 50 mg PO Q4H PRN PRN Reason: Pain Stop: 05/29/21 20:23 Last Admin: 05/01/21 21:44 Dose: 50 mg Documented by: [id number] Admin: 05/01/21 11:26 Dose: 50 mg Documented by: [id number] Admin: 04/30/21 08:20 Dose: 50 mg Documented by: [id number] Admin: 04/30/21 03:46 Dose: 50 mg Documented by: [id number] Admin: 04/29/21 20:48 Dose: 50 mg Documented by: [id number] Discontinued Medications Aspirin (Aspirin 81 Mg Ectab) 81 mg PO QAM [facility] Stop: 05/30/21 08:59 Last Admin: 05/01/21 08:19 Dose: 81 mg Documented by: [id number] Admin: 04/30/21 08:20 Dose: 81 mg Documented by: [id number] Bacitracin (Bacitracin Oint 15 Gm Tube) Confirm Administered Dose 45 appln .ROUTE .STK-MED ONE Stop: 05/01/21 15:28 Last Admin: 05/01/21 16:54 Dose: 45 appln Documented by: [id number] Ethyl Chloride (Ethyl Chloride Aer Spr 100 Ml Can) 1 sprays EXT NOW ONE Stop: 04/30/21 13:43 Last Admin: 04/30/21 14:03 Dose: 1 sprays Documented by: [id number] Gentamicin Sulfate (Gentamicin Sulfate 40 Mg/Ml 2 Ml Vial) Confirm Administered Dose 240 mg .ROUTE .STK-MED ONE Stop: 05/01/21 14:05 Last Admin: 05/01/21 16:54 Dose: Not Given Documented by: [id number] Heparin Sodium (Porcine) (Heparin Sod 5,000 Unit/0.5 Ml Vial) 5,000 units SQ Q8 NEFTALY Stop: 05/29/21 16:10 Last Admin: 05/01/21 17:14 Dose: Not Given Documented by: [id number] Admin: 05/01/21 05:12 Dose: Not Given Documented by: [id number] Admin: 04/30/21 21:04 Dose: Not Given Documented by: [id number] Admin: 04/30/21 14:02 Dose: 5,000 units Documented by: [id number] Admin: 04/30/21 05:30 Dose: 5,000 units Documented by: [id number] Admin: 04/29/21 21:12 Dose: 5,000 units Documented by: [id number] Admin: 04/29/21 18:19 Dose: 5,000 units Documented by: [id number] Acetaminophen (Ofirmev) 1,000 mg in 100 mls @ 400 mls/hr IV NOW STA Stop: 04/29/21 11:27 Last Infusion: 04/29/21 12:35 Dose: 0 mls/hr Documented by: [id number] Admin: 04/29/21 11:54 Dose: 400 mls/hr Documented by: [id number] Ceftriaxone Sodium (Rocephin) 1,000 mg in 50 mls @ 100 mls/hr IV NOW STA Stop: 04/29/21 11:52 Last Infusion: 04/29/21 12:35 Dose: 0 mls/hr Documented by: [id number] Admin: 04/29/21 11:54 Dose: 100 mls/hr Documented by: [id number] Ceftriaxone Sodium (Rocephin) 1,000 mg in 50 mls @ 100 mls/hr IV NOW STA Stop: 04/29/21 13:14 Last Infusion: 04/29/21 14:53 Dose: 0 mls/hr Documented by: [id number] Admin: 04/29/21 14:07 Dose: 100 mls/hr Documented by: [id number] Sodium Chloride (Nss 1000ml) 500 mls @ 999 mls/hr IV .Q31M ONE Stop: 04/29/21 15:11 Last Infusion: 04/29/21 16:12 Dose: 0 mls/hr Documented by: [id number] Admin: 04/29/21 15:26 Dose: 999 mls/hr Documented by: [id number] Sodium Chloride (Nss 1000ml) 1,000 mls @ 80 mls/hr IV .[id number] [facility] Stop: 05/30/21 16:29 Last Admin: 05/01/21 18:39 Dose: Not Given Documented by: [id number] Infusion: 05/01/21 18:39 Dose: 0 mls/hr Documented by: [id number] Admin: 05/01/21 05:11 Dose: 80 mls/hr Documented by: [id number] Infusion: 05/01/21 05:11 Dose: 80 mls/hr Documented by: [id number] Admin: 04/30/21 16:53 Dose: 80 mls/hr Documented by: [id number] Vancomycin HCl 2,500 mg/ (Sodium Chloride) 550 mls @ 200 mls/hr IV NOW ONE; Protocol Stop: 04/30/21 20:14 Last Infusion: 04/30/21 21:04 Dose: 0 mls/hr Documented by: [id number] Admin: 04/30/21 18:23 Dose: 200 mls/hr Documented by: [id number] Potassium Chloride (K [place] / Wtr) 10 meq in 100 mls @ 100 mls/hr IV Q1H [facility] Stop: 05/01/21 10:29 Last Admin: 05/01/21 10:26 Dose: Not Given Documented by: [id number] Infusion: 05/01/21 09:41 Dose: 0 mls/hr Documented by: [id number] Admin: 05/01/21 08:17 Dose: 100 mls/hr Documented by: [id number] Ketorolac Tromethamine (Ketorolac Tromethamine 15 Mg/Ml Vial) 15 mg IV NOW ONE Stop: 04/29/21 11:14 Last Admin: 04/29/21 11:54 Dose: 15 mg Documented by: [id number] Vancomycin HCl (Vancomycin Hcl 1000mg/20ml Vial) Confirm Administered Dose 50 mg .ROUTE .STK-MED ONE Stop: 05/01/21 14:06 Last Admin: 05/01/21 16:10 Dose: 50 mg Documented by: [id number] Medical Decision Making Differential Diagnosis Cellulitis, abscess, MRSA infection, DVT, necrotizing fasciitis, dermatitis, drug eruption, allergic reaction, as well as other pathologies. Medical Records Attestation: I reviewed the patient's medical records. Home Medications Current Medication List: was personally reviewed by me Laboratory Data Attestation: I reviewed the patient's lab results. Result diagrams: 05/01/21 07:02 05/01/21 07:02 Lab Results 04/29/21 04/29/21 04/29/21 Range/Units 11:10 11:10 11:10 WBC 17.03 H (4.8-10.8) K/uL RBC 4.14 L (4.2-5.4) M/uL Hgb 12.4 (12.0-16.0) g/dL Hct 36.9 L (37-47) % MCV 89.1 (80-100) fL MCH 30.0 (25-34) pg MCHC 33.6 (32-36) g/dL RDW Std Deviation 43.8 (36.4-46.3) fL RDW Coeff of [place] 13.3 (11.5-14.5) % Plt Count 181 (130-400) K/uL MPV 9.7 (7.4-10.4) fL Immature Gran % (Auto) 0.5 % Neut % (Auto) 87.1 % Lymph % (Auto) 4.4 % [place] % (Auto) 7.9 % Eos % (Auto) 0.1 % Baso % (Auto) 0.0 % Neut # (Auto) 14.84 H (1.4-6.5) K/uL Lymph # (Auto) 0.75 L (1.2-3.4) K/uL [place] # (Auto) 1.34 H (0.11-0.59) K/uL Eos # (Auto) 0.01 (0-0.5) K/uL Baso # (Auto) 0.00 (0-0.2) K/uL Immature Gran # (Auto) 0.09 H (0.00-0.02) K/uL ESR 45 H (0-30) mm/hr Sodium 134 L (136-145) mmol/L Potassium 3.7 (3.5-5.1) mmol/L Chloride 99 (98-107) mmol/L Carbon Dioxide 29 (21-32) mmol/L Anion Gap 6.0 (3-11) BUN 24 H (7-18) mg/dl Creatinine 1.32 H (0.6-1.2) mg/dl Est Cr Clr Drug Dosing 39.0 ml/min Est GFR ( Amer) 45.3 ml/min Est GFR (Non-Af Amer) 39.1 ml/min BUN/Creatinine Ratio 18.2 (10-20) Glucose 135 H (70-99) mg/dl Calcium 8.6 (8.5-10.1) mg/dl Total Bilirubin 1.7 H (0.2-1) mg/dl AST 28 (15-37) U/L ALT 26 (12-78) U/L Alkaline Phosphatase 78 (45-117) U/L C-Reactive Protein (0-0.29) mg/dl Total Protein 7.1 (6.4-8.2) gm/dl Albumin 3.3 L (3.4-5.0) gm/dl Globulin 3.8 (2.5-4.0) gm/dl Albumin/Globulin Ratio 0.9 (0.9-2) Specimen Hemolysis COVID-19 Eval Order SARS-CoV-2 (PCR) (Negative) 04/29/21 04/29/21 04/29/21 Range/Units 11:10 11:21 11:21 WBC (4.8-10.8) K/uL RBC (4.2-5.4) M/uL Hgb (12.0-16.0) g/dL Hct (37-47) % MCV (80-100) fL MCH (25-34) pg MCHC (32-36) g/dL RDW Std Deviation (36.4-46.3) fL RDW Coeff of [place] (11.5-14.5) % Plt Count (130-400) K/uL MPV (7.4-10.4) fL Immature Gran % (Auto) % Neut % (Auto) % Lymph % (Auto) % [place] % (Auto) % Eos % (Auto) % Baso % (Auto) % Neut # (Auto) (1.4-6.5) K/uL Lymph # (Auto) (1.2-3.4) K/uL [place] # (Auto) (0.11-0.59) K/uL Eos # (Auto) (0-0.5) K/uL Baso # (Auto) (0-0.2) K/uL Immature Gran # (Auto) (0.00-0.02) K/uL ESR (0-30) mm/hr Sodium (136-145) mmol/L Potassium (3.5-5.1) mmol/L Chloride (98-107) mmol/L Carbon Dioxide (21-32) mmol/L Anion Gap (3-11) BUN (7-18) mg/dl Creatinine (0.6-1.2) mg/dl Est Cr Clr Drug Dosing ml/min Est GFR ( Amer) ml/min Est GFR (Non-Af Amer) ml/min BUN/Creatinine Ratio (10-20) Glucose (70-99) mg/dl Calcium (8.5-10.1) mg/dl Total Bilirubin (0.2-1) mg/dl AST (15-37) U/L ALT (12-78) U/L Alkaline Phosphatase (45-117) U/L C-Reactive Protein 14.50 H (0-0.29) mg/dl Total Protein (6.4-8.2) gm/dl Albumin (3.4-5.0) gm/dl Globulin (2.5-4.0) gm/dl Albumin/Globulin Ratio (0.9-2) Specimen Hemolysis COVID-19 Eval Order Covid19 at [facility] SARS-CoV-2 (PCR) NEGATIVE (Negative) MDM Narrative Patient presents with a left lower extremity cellulitis. The cellulitis is ra ther extensive involving both the lower and upper leg/thigh. She is required admission for similar infections in the past. Her vital signs are stable. Her physical exam as noted above. White blood cell count shows a leukocytosis with 17,000 and a BUN of 24. Other studies were unremarkable. The patient will be seen by the hospitalist for further patient evaluation and care. Impression & Plan Cellulitis Discharge Plan Visit Data Chief Complaint: Infection, Wound Stated Complaint: INFECTION IN LT LEG,UNABLE TO WALK ON IT NOW ED Provider: Jamie Huertas ED Midlevel Provider: Diane Dobson Discharge Problem: Cellulitis Patient Disposition: Admitted As Inpatient Discharge Instructions Interventions: ED Discharge Assessment Last Done: 04/29/21 16:07 Discharge Problem: Cellulitis Qualifiers: Site of cellulitis: extremity Site of cellulitis of extremity: lower extremity Laterality: left Qualified Code(s): L03.116 - Cellulitis of left lower limb
--- NOTE | 2021-04-29 13:25 | History & Physical Report ---
Date of Service April 29, 2021 Assessment & Plan (1) Cellulitis of left leg: (2) Lymphedema: This is a 75yo F with a PMH of HTN, dyslipidemia, lymphedema and other medical problems listed below who presents with pain and redness in LLE x 3 days. LLE cellulitis extending over knee joint with known prosthesis VSS, afebrile, leukocytosis of 17. ESR, CRP and procalcitonin pending Awaiting doppler of BLE to evaluate for DVT Consider additional imaging of knee Started on Rocephin - plan to continue Pain control with PRN Tylenol and Toradol to start PT/OT evaluation, fall precautions (3) HTN (hypertension): BP on lower end of normal, 104/62. Continue HCTZ, lisinopril and Toprol with hold parameters (4) HLD (hyperlipidemia): Continue statin DVT Ppx: SQ heparin Code status: FULL PCP: Paty Dispo: Admitted to med/surg Patient seen in collaboration with Dr. Pichardo. Please see addendum. History of Present Illness Chief Complaint: LLE pain, redness Primary Care Provider: Tia Hogan PA-C This is a 75yo F with a PMH of HTN, dyslipidemia, lymphedema and other medical problems listed below who presents with pain and redness in LLE x 3 days. Began to feel nauseated over the weekend with intermittent vomiting. Also endorses subjective fever and chills. Yesterday, noted pain and warmth in LLE. Leg is move painful with walking and to touch. Had bout of cellulitis last year that improved with course of IV abx. Has had tylenol and toradol while in the ER with some improvement. Has underlying lymphedema and states LLE is more edematous than baseline. Pain is worse around and behind L knee. History of L TKA. Denies lightheadedness, headache, congestion, nausea, abdominal pain, dysuria, diarrhea or constipation. Allergies Allergy/AdvReac Type Severity Reaction Status Date / Time cephalexin Allergy Intermediate ITCHY RASH Verified 04/29/21 13:50 Home Medications Medication Instructions Recorded Confirmed Type betamethasone dipropionate 1 applic TOPICAL DIRECTED PRN 04/26/20 04/29/21 History clobetasol 1 applic TOPICAL DIRECTED PRN 04/26/20 04/29/21 History ibuprofen 400 mg PO Q6H PRN 04/26/20 04/29/21 History lisinopril 40 mg PO QAM 04/26/20 04/29/21 History loratadine 10 mg PO DAILY PRN 04/26/20 04/29/21 History metoprolol succinate 25 mg PO QAM 04/26/20 04/29/21 History multivitamin 1 tab PO QAM 04/26/20 04/29/21 History polyvinyl alcohol-povidone 1 drp OPHTHALMIC (EYE) DIRECTED 04/26/20 04/29/21 History PRN simvastatin 40 mg PO QPM 04/26/20 04/29/21 History hydrochlorothiazide 50 mg PO DAILY #30 tab 04/28/20 04/29/21 Rx aspirin [Aspir-81] 81 mg PO QAM 04/29/21 04/29/21 History biotin 1 mg PO DAILY 04/29/21 04/29/21 History Past Med/Surg History Medical History (Updated 04/29/21 @ 13:23 by Marry Diaz PA-C) HLD (hyperlipidemia) HTN (hypertension) Lymphedema Surgical History (Updated 04/29/21 @ 13:23 by Marry Diaz PA-C) H/O dilation and curettage H/O vaginal hysterectomy History of appendectomy History of knee replacement procedure of left knee History of knee replacement procedure of right knee Family History Other Heart disease Lung disease Stroke Social History Smoking Status: Former smoker Smoking End Date: 1969; Hx Alcohol Use: Yes Alcohol Intake Frequency: Monthly or Less Hx Substance Use: No Preferred Language: Burundian Communication Ability: Effective Tack Picker Required: No Beliefs That Will Affect Care: None Current Living Situation: Alone Feels Safe at Home: Yes Assistive Devices: None Review of Systems Review of Systems: At least ten systems reviewed and negative except as noted in the HPI. Physical Exam Physical Exam: General Appearance: WD/WN, vitals as above, NAD, sitting up in bed, pleasant, obese Head: normocephalic, atraumatic Eyes: normal inspection, PERRL, conjunctivae normal, anicteric sclerae ENT: external ear and nose normal, oropharynx normal Neck: normal visual inspection, trachea midline, no thyromegaly Respiratory: normal respiratory effort, lungs clear to auscultation, no wheeze, rales, rhonchi. No accessory muscle use Cardiovascular: regular rate, rhythm, no murmur, normal peripheral pulses, no BLE edema. Vessels: no JVD Chest: normal inspection of chest Abdomen/GI: normal bowel sounds, soft, nontender, no hepatosplenomegaly Extremities/Musculoskeletal: BLE with lymphedema, L>R. L knee and distal thigh with erythematous streaking and warmth and painful to touch. Lower leg with erythematous banding but normal temperature. No drainage. No cyanosis or clubbing, extremities motor strength 5/5 Neurologic: PERRL, EOMI, accommodation nl, no face palsy, no dysarthria, CN's II-XI intact bilaterally and moves all extremities Psychiatric: A+Ox3, euthymic affect Skin: no rashes, normal color, warm/dry Results & Data Results & Data ([facility]) Vital Signs (Past 12 Hours) Vital Signs Temp Pulse Pulse Resp BP BP Pulse Ox 04/29/21 12:45 78 20 96 04/29/21 12:31 102 H 21 97 04/29/21 12:30 98 H 20 104/62 97 04/29/21 12:15 99 H 19 96 04/29/21 12:01 101 H 20 97 04/29/21 12:00 73 24 115/56 L 98 04/29/21 11:45 78 20 97 04/29/21 11:31 83 20 04/29/21 11:30 102 H 23 120/62 04/29/21 11:25 79 22 130/57 L 04/29/21 11:15 79 21 04/29/21 11:13 82 20 04/29/21 10:28 37.2 C 105 H 20 129/71 95 04/29/21 10:16 37.2 C 85 20 142/76 H 99 Laboratory Results Short CBC 04/29/21 04/29/21 Range/Units 11:10 11:10 WBC 17.03 H (4.8-10.8) K/uL Hgb 12.4 (12.0-16.0) g/dL Hct 36.9 L (37-47) % Plt Count 181 (130-400) K/uL Creatinine 1.32 H (0.6-1.2) mg/dl BMP 07/06/21 11:10 Sodium 134 L Potassium 3.7 Chloride 99 Carbon Dioxide 29 BUN 24 H Creatinine 1.32 H Glucose 135 H Calcium 8.6 Liver Function 04/29/21 Range/Units 11:10 Total Bilirubin 1.7 H (0.2-1) mg/dl AST 28 (15-37) U/L ALT 26 (12-78) U/L Alkaline Phosphatase 78 (45-117) U/L Albumin 3.3 L (3.4-5.0) gm/dl Code Status & VTE Plan VTE Prophylaxis Plan VTE Prophylaxis will be ordered: Yes Supervising Physician Co-Signing Physician Notes Attending addendum: The patient was seen and examined in emergency room She has been complaining of redness and swelling of her right lower extremity since Wednesday last She has had chills with nausea and vomiting but did not take her temperature She also complains to have pain in the left knee joint On examination Lying in bed comfortably Hemodynamically stable with systolic blood pressure on the lower side of 92/38 which improved with 500 cc of NS bolus Chestdecreased breath sounds without any crackles HeartS1-S2, regular Abdomendistended, soft, nontender, bowel sound present Extremities-bilateral lymphedema, more on the left, increasing edema and redness involving the right leg up to above the knee on the medial side. Left knee movement was painful but clinically no fluid in the knee joint. Her admission labs, imaging studies reviewed Has spreading cellulitis of the left lower extremity with known history of bilateral lymphedema Left knee pain likely secondary to inflammation, will get x-ray of the left knee rule out any significant effusion, doubt any septic arthritis Has been on intravenous ceftriaxone We will need to elevate the legs while in the hospital and lying down Agree with assessment and plan as outlined above by RUCHI Gilbert Dr
--- NOTE | 2021-04-29 14:35 | Ultrasound Report ---
LEFT LOWER EXTREMITY VENOUS DOPPLER HISTORY: Left leg swelling and redness. rule out DVT COMPARISON STUDY: None. FINDINGS: There is normal compressibility, flow, and augmentation within the left lower extremity romelia p venous system. A few left inguinal lymph nodes which measure subcentimeter in short axis diameter. Therefore, these are likely benign. IMPRESSION: No DVT within the left lower extremity. ACT 112: Negative or not required by law. Electronically signed by: Galdino Yin M.D. 04/29/2021 2:33 PM
[2021-04-29] MEDS ORDERED: SODIUM CHLORIDE 0.9% 1000ML 500 ML IV ONE (14:41)
[2021-04-29] MEDS ORDERED: ONDANSETRON INJ 2 MG/ML 2 ML VIAL IV PRN (16:11)
[2021-04-29] MEDS ORDERED: POLYETHYLENE (MIRALAX) 17 GM PACK PO PRN (16:11)
[2021-04-29] MEDS ORDERED: LORATADINE 10 MG TAB PO PRN (16:11)
[2021-04-29] MEDS ORDERED: BETAMETHASONE DIP AUG (DIPROLENE) 0.05% CR 15 GM TUBE EXT PRN (16:21)
[2021-04-29] MEDS ORDERED: CLOBETASOL PROPIONATE 0.05% OINT 15 GM TUBE EXT PRN (16:22)
[2021-04-29] MEDS ORDERED: ARTIFICIAL TEARS OP PRN (16:23)
--- NOTE | 2021-04-29 16:59 | XRay Report ---
XR knee LT 1 or 2V routine HISTORY: 75 years-old Female R/O Arthritis,s/p replacement,Effusion acute pain and swelling of the l eft knee COMPARISON: None TECHNIQUE: 2 views of the left knee FINDINGS: Left knee total joint arthroplasty with patellar resurfacing. Moderate size joint effusion. Soft tiss ue prominence of the lower extremity. A 12 mm ovoid calcification projects over the medial knee, like ly dystrophic. IMPRESSION: 1. Moderate joint effusion without acute fracture or dislocation. 2. Total joint arthroplasty without evidence of hardware complication. ACT 112: Negative or not required by law. The above report was generated using voice recognition software. It may contain grammatical, syntax o r spelling errors. Electronically signed by: Richie Sultana M.D. 04/29/2021 4:57 PM
[2021-04-29] MEDS: ACETAMINOPHEN 325 MG TAB PO PRN (18:19)
[2021-04-29] MEDS: HEPARIN SOD 5,000 UNIT/0.5 ML VIAL SQ SCH ×2 (18:19→21:12)
[2021-04-29] MEDS: SIMVASTATIN 40 MG TAB PO SCH (20:09)
[2021-04-29] MEDS: traMADol HCL 50 MG TABLET PO PRN (20:48)
--- NOTE | 2021-04-29 22:17 | XRay Report ---
SINGLE VIEW CHEST CLINICAL HISTORY: Renal failure. FINDINGS: An AP, portable, upright chest radiograph is compared to chest x-ray and chest CT dated 04/26. The heart is mildly enlarged. The pulmonary vasculature is noncongested. There is mild bibasil ar atelectasis. The lungs and pleural spaces are otherwise clear. No pneumothorax is seen. The skelet al structures are osteopenic. The bony thorax is grossly intact. Fusion hardware is noted in the lowe r cervical spine. IMPRESSION: Mild cardiomegaly with no active disease in the chest. ACT 112: Negative or not required by law. Electronically signed by: Carlos Castaneda M.D. 04/29/2021 10:16 PM
[2021-04-30] MEDS: traMADol HCL 50 MG TABLET PO PRN ×2 (03:46→08:20)
[2021-04-30] MEDS: HEPARIN SOD 5,000 UNIT/0.5 ML VIAL SQ SCH ×3 (05:30→21:04)
[2021-04-30 07:45] LABS: Hematocrit (blood only) 35.1 % (37-47); Hemoglobin 11.9 g/dL (12.0-16.0); Mean Corpuscular Hemoglobin 30.7 pg (25-34); Mean Corpuscular Hgb Conc 33.9 g/dL (32-36); Mean Corpuscular Volume 90.5 fL (80-100); Mean Platelet Volume 9.3 fL (7.4-10.4); Platelet Count 173 K/uL (130-400); RDW Coefficient of Variation 13.3 % (11.5-14.5); RDW Standard Deviation 44.5 fL (36.4-46.3); Red Blood Count 3.88 M/uL (4.2-5.4); White Blood Count 14.29 K/uL (4.8-10.8)
[2021-04-30 08:20] LABS: Calcium 8.5 mg/dl (8.5-10.1); Creatinine Clr Calc Pharmacy 59.3 ml/min; Est GFR (African American) 69.2 ml/min; Est GFR (Non-African American) 59.7 ml/min; Potassium 3.5 mmol/L (3.5-5.1)
[2021-04-30] MEDS: MULTIVITAMIN TAB PO SCH (08:20)
[2021-04-30] MEDS: ASPIRIN 81 MG ECTAB PO SCH (08:20)
[2021-04-30] MEDS: METOPROLOL SUCC 25MG EXT REL TAB PO SCH (08:20)
[2021-04-30] MEDS ORDERED: ASPIRIN 81 MG ECTAB PO SCH (09:00)
[2021-04-30] MEDS ORDERED: NON-FORMULARY MEDICATION (Biotin 1 mg Tablet) PO SCH (09:00)
[2021-04-30] MEDS ORDERED: lisinopril 40 MG TAB PO SCH (09:00)
[2021-04-30] MEDS ORDERED: hydroCHLOROthiazide 25 MG TAB PO SCH (09:00)
[2021-04-30] MEDS ORDERED: oxyCODONE/ACETAMINOPHEN 5mg/325mg TAB PO PRN (09:20)
[2021-04-30] MEDS: HYDROmorphone INJ 0.5 MG/0.5 ML SYR IV PRN ×5 (09:59→23:55)
[2021-04-30] MEDS: FUROSEMIDE 40 MG TAB PO SCH (12:37)
[2021-04-30] MEDS: cefTRIAXone SODIUM 2,000 MG in DEXTROSE 5% 50 ML IV SCH (12:42)
[2021-04-30] MEDS ORDERED: ETHYL CHLORIDE AER SPR 100 ML CAN EXT ONE (13:42)
[2021-04-30] MEDS: oxyCODONE HCL IR 5 MG TAB (IMMEDIATE RELEASE) PO PRN (14:02)
--- NOTE | 2021-04-30 16:29 | Hospitalist Progress Note ---
Date of Service April 30, 2021 Assessment & Plan (1) Cellulitis of left leg: This is a 75yo F with a PMH of HTN, dyslipidemia, lymphedema and other medical problems listed below who presents with pain and redness in LLE x 3 days. LLE cellulitis extending over knee joint with known prosthesis Has significant leukocytosis Redness and warmth extending up to upper part of the medial side of the knee A few skin lesions noted Advised to keep the legs elevated while in bed Has been started on intravenous ceftriaxone Left knee effusion Associated with severe pain with movement X-ray of the knee did show moderate amount of fluid Likely inflammatory and doubt any septic arthritis Pain has been noted to be worse this morning We will ask for Ortho evaluation and possible arthrocentesis if indicated (2) Lymphedema: History of bilateral lymphedema complicating the leg cellulitis on the left Awaiting doppler of BLE to evaluate for DVT -no evidence of DVT Has been on outpatient hydrochlorothiazide Will try small dose of Lasix Advised the legs to be elevated while in bed Compression stockings will be prescribed on discharge (3) HTN (hypertension): BP on lower end of normal, 104/62. Continue HCTZ, lisinopril and Toprol with hold parameters Blood pressure remains upper side (4) HLD (hyperlipidemia): Continue statin DVT Ppx: SQ heparin Code status: FULL PCP: Paty Dispo: Admitted to med/surg Admission and Anticipated Discharge Date Admission Date: April 29, 2021 Subjective 04/30/2021 The patient was seen and examined in medical telemetry unit She has been complaining of more pain in the left knee joint Denies any fever and/or chills Her redness and swelling of the left lower extremity have diminished Review of Systems Review of Systems: All systems reviewed and are unremarkable except as noted below Musculoskeletal: + joint pain (Left knee swelling with extreme pain with movement) and + swelling (Left leg swelling with redness) Physical Exam Physical Exam: Lying in bed comfortably Constitutional: well developed, well nourished, + ill appearing and + obese Eyes: PERRL, conjunctivae normal, anicteric sclerae ENMT: external ear and nose normal, oropharynx normal Neck: trachea midline, no thyromegaly Respiratory: no respiratory distress Auscultation: lungs clear to auscultation bilaterally Cardiovascular: Rate/Rhythm: regular rate and regular rhythm Heart Sounds: no murmur Extremities: + edema (Bilateral leg edema. Likely has component of lymphedema. More on the left) Gastrointestinal (Abdomen): Inspection/Auscultation: + abdomen distended; + abnormal bowel sounds Percussion/Palpation: abdomen soft; abdomen nontender Musculoskeletal: Knee: + effusion (Left knee swollen with moderate fluid and extremely painful with movement) and + skin erythema (Minimal erythema of the skin and warmth) Left leg swelling is improved and so is redness Neurologic: Alert, awake and oriented x3 Lymphatic: no cervical or axillary lymphadenopathy Results & Data Results & Data ([facility]) Vital Signs (Past 12 Hours) Vital Signs Temp Pulse Resp BP Pulse Ox 04/30/21 07:57 36.8 C 79 20 152/67 H 98 Laboratory Results Short CBC 04/30/21 Range/Units 07:33 WBC 14.29 H (4.8-10.8) K/uL Hgb 11.9 L (12.0-16.0) g/dL Hct 35.1 L (37-47) % Plt Count 173 (130-400) K/uL BMP 04/30/21 07:33 Sodium 135 L Potassium 3.5 Chloride 100 Carbon Dioxide 29 BUN 24 H Creatinine 0.93 D Glucose 132 H Calcium 8.5 Medications Administered Current Inpatient Medications Acetaminophen (Acetaminophen 325 Mg Tab) 650 mg PO Q4H PRN PRN Reason: pain/fever Stop: 05/29/21 16:10 Last Admin: 04/29/21 18:19 Dose: 650 mg Documented by: Artificial Tears (Artificial Tears) 1 drops OP UD PRN PRN Reason: Dry Eyes Stop: 05/29/21 16:22 Aspirin (Aspirin 81 Mg Ectab) 81 mg PO QAM [facility] Stop: 05/30/21 08:59 Last Admin: 04/30/21 08:20 Dose: 81 mg Documented by: Betamethasone Dipropion Augmented (Betamethasone Dip Aug (Diprolene) 0.05% Cr 15 Gm Tube) 1 appln EXT UD PRN PRN Reason: Skin Irritation Stop: 05/29/21 16:20 Clobetasol Propionate (Clobetasol Propionate 0.05% Oint 15 Gm Tube) 1 appln EXT UD PRN PRN Reason: Skin Irritation Stop: 05/29/21 16:21 Furosemide (Furosemide 40 Mg Tab) 40 mg PO QAM [facility] Stop: 05/30/21 11:44 Last Admin: 04/30/21 12:37 Dose: 40 mg Documented by: Heparin Sodium (Porcine) (Heparin Sod 5,000 Unit/0.5 Ml Vial) 5,000 units SQ Q8 [facility] Stop: 05/29/21 16:10 Last Admin: 04/30/21 14:02 Dose: 5,000 units Documented by: Hydrochlorothiazide (Hydrochlorothiazide 25 Mg Tab) 50 mg PO DAILY [facility] Stop: 05/30/21 08:59 Hydromorphone HCl (Hydromorphone Inj 0.5 Mg/0.5 Ml Syr) 0.5 mg IV Q3H PRN PRN Reason: Pain Stop: 05/13/21 20:23 Last Admin: 04/30/21 15:48 Dose: 0.5 mg Documented by: Ceftriaxone Sodium 2,000 mg/ (Dextrose) 70 mls @ 100 mls/hr IV Q24H [facility]; Protocol Stop: 05/06/21 11:59 Last Infusion: 04/30/21 13:41 Dose: Infused Documented by: Sodium Chloride (Nss 1000ml) 1,000 mls @ 80 mls/hr IV .[id number] [facility] Stop: 05/30/21 16:29 Loratadine (Loratadine 10 Mg Tab) 10 mg PO DAILY PRN PRN Reason: Congestion Stop: 05/29/21 16:10 Metoprolol Succinate (Metoprolol Succ 25mg Ext Rel Tab) 25 mg PO [facility] Stop: 05/30/21 08:59 Last Admin: 04/30/21 08:20 Dose: 25 mg Documented by: Multivitamins (Multivitamin Tab) 1 tab PO [facility] Stop: 05/30/21 08:59 Last Admin: 04/30/21 08:20 Dose: 1 tab Documented by: Ondansetron HCl (Ondansetron Inj 2 Mg/Ml 2 Ml Vial) 4 mg IV Q6H PRN PRN Reason: Nausea Stop: 05/29/21 16:10 Oxycodone HCl (Oxycodone Hcl Ir 5 Mg Tab (Immediate Release)) 5 mg PO Q4H PRN PRN Reason: Pain Stop: 05/14/21 13:35 Last Admin: 04/30/21 14:02 Dose: 5 mg Documented by: Polyethylene Glycol (Polyethylene (Miralax) 17 Gm Pack) 17 gm PO DAILY PRN PRN Reason: Constipation Stop: 05/29/21 16:10 Simvastatin (Simvastatin 40 Mg Tab) 40 mg PO QPM [facility] Stop: 05/29/21 20:59 Last Admin: 04/29/21 20:09 Dose: 40 mg Documented by: Tramadol HCl (Tramadol Hcl 50 Mg Tablet) 25 - 50 mg PO Q4H PRN PRN Reason: Pain Stop: 05/29/21 20:23 Last Admin: 04/30/21 08:20 Dose: 50 mg Documented by:
--- NOTE | 2021-04-30 16:52 | Orthopedic Consultation ---
Date of Consultation April 30, 2021 Assessment & Plan (1) Cellulitis of left leg: Continue IV antibiotics and if still has a pustule at the time of surgery this will be debrided and irrigated (2) Infection of total left knee replacement: Left knee was sterilely prepped today with Betadine and alcohol and a knee aspiration was performed via a superior lateral approach. Ethyl chloride was used and a spinal needle was placed into the knee joint and the joint was aspirated for cloudy thick yellow to brown knee fluid consistent with septic arthritis. The fluid collection aspirated was sent to the lab for Gram stain and culture and sensitivity and cell count crystal analysis. Patient will be made n.p.o. at midnight and scheduled for open irrigation debridement synovectomy polyethylene exchange placement of antibiotic beads. History of Present Illness Reason for Consultation: Left knee pain Attending Physician: Marcus Pcihardo MD History of Present Illness 75-year-old female with acute onset left knee pain. Patient developed lymphedema years ago when she had cervical spine surgery and required bone grafting with posterior iliac bone graft and ever since then she says she has lymphedema she has had some periodic infections of her leg but never had knee pain of significance. Patient said over this holiday weekend 4 days ago she developed increasing pain in her left knee and she developed a cellulitis in her leg. She said at first she tried to tough it out over the holiday but she developed fever and chills and progressive pain to the point of hospitalization. Patient's been placed on antibiotics for the cellulitis but knee pain persists. Allergies Allergy/AdvReac Type Severity Reaction Status Date / Time cephalexin Allergy Intermediate ITCHY RASH Verified 04/29/21 13:50 Home Medications Medication Instructions Recorded Confirmed Type betamethasone dipropionate 1 applic TOPICAL DIRECTED PRN 04/26/20 04/29/21 H istory clobetasol 1 applic TOPICAL DIRECTED PRN 04/26/20 04/29/21 History ibuprofen 400 mg PO Q6H PRN 04/26/20 04/29/21 History lisinopril 40 mg PO QAM 04/26/20 04/29/21 History loratadine 10 mg PO DAILY PRN 04/26/20 04/29/21 History metoprolol succinate 25 mg PO QAM 04/26/20 04/29/21 History multivitamin 1 tab PO QAM 04/26/20 04/29/21 History polyvinyl alcohol-povidone 1 drp OPHTHALMIC (EYE) DIRECTED 04/26/20 04/29/21 History PRN simvastatin 40 mg PO QPM 04/26/20 04/29/21 History hydrochlorothiazide 50 mg PO DAILY #30 tab 04/28/20 04/29/21 Rx aspirin [Aspir-81] 81 mg PO QAM 04/29/21 04/29/21 History biotin 1 mg PO DAILY 04/29/21 04/29/21 History Patient History Medical History HLD (hyperlipidemia) HTN (hypertension) Lymphedema Surgical History H/O dilation and curettage H/O vaginal hysterectomy History of appendectomy History of knee replacement procedure of left knee History of knee replacement procedure of right knee Family History Other Heart disease Lung disease Stroke Social History Smoking Status: Never smoker Smoking End Date: 1969; Hx Alcohol Use: No Hx Substance Use: No Preferred Language: Maori Communication Ability: Effective Care Assistant Required: No Beliefs That Will Affect Care: None Current Living Situation: Alone Other Information That Helps Us Care for You: No Feels Safe at Home: Yes Safety Concerns: Feels Safe At This Time Assistive Devices: Denture - Upper and Glasses Review of Systems Review of Systems: Patient has no pain in her right knee she has severe pain in her left knee with any mobility and she has not had any recent fever or chills as of today Physical Exam Physical Exam: Patient has an obese left leg with more lymphedema left leg and her right leg. She clearly has a cellulitis with some blisters on the lateral side of her her lower leg. There is redness and one of the blisters has some pus underneath it to the blisters were ruptured. Motor function and sensation normal. Patient has a knee effusion increased warmth of the knee no drainage and no erythema around the knee. She has severe pain with range of motion so range of motion testing is very limited as I can only bend her about 20 degrees and she is in severe pain. She had too much pain to do a leg lift. No instability with gentle varus valgus stress. Right knee demonstrates its pain- free does not have an effusion there is no increased warmth and she has some but no significant swelling in the right lower leg. Patient is obese. Results & Data ([facility]) Vital Signs (Past 12 Hours) Vital Signs Temp Pulse Resp BP Pulse Ox 04/30/21 07:57 36.8 C 79 20 152/67 H 98 Laboratory Results Short CBC 04/30/21 Range/Units 07:33 WBC 14.29 H (4.8-10.8) K/uL Hgb 11.9 L (12.0-16.0) g/dL Hct 35.1 L (37-47) % Plt Count 173 (130-400) K/uL BMP 04/30/21 07:33 Sodium 135 L Potassium 3.5 Chloride 100 Carbon Dioxide 29 BUN 24 H Creatinine 0.93 D Glucose 132 H Calcium 8.[address] chest initial read: No pulmonary emboli CT abdomen pelvis initial read: No acute findings in the abdomen pelvis. Small hiatal hernia. Diverticulosis. Mildly prominent bilateral inguinal lymph nodes particularly on the left, largest measuring 11 mm. EKG as per my interpretation:Rate 95, NSR, LAD, LAFB, 1 AVB, no ischemia Knee x-ray demonstrates a [employer] triathlon total knee replacement with moderate knee effusion left knee. There are no bone erosions or signs of osteomyelitis or lucencies or loosening.
[2021-04-30] MEDS: SODIUM CHLORIDE 0.9% 1000ML 1,000 ML IV SCH (16:53)
[2021-04-30] MEDS ORDERED: VANCOMYCIN CONSULT ACTIVE PRN (16:57)
--- NOTE | 2021-04-30 17:15 | Pharmacy Report ---
Pharmacy Abx Dose Short Note - Date of Service April 30, 2021 - Assessment & Plan Assessment 75 year old F receiving VANCOMYCIN for treatment of SEPTIC ARTHRITIS Day # 1 of antimicrobial therapy. Plan Vancomycin * VANCOMYCIN 2500 MG IV X 1 (25 MG/KG) * THEN VANCOMYCIN 1500 MG IV Q18H (ELIMINATION CONSTANT = 0.05 HR-1 AND HALF LIFE OF 14 HOURS) BUT CONCERNED ABOUT ACCUMULATION IN CURRENT BODY HABITUS PLUS AGE. THEREFORE EXTEND INTERVAL. * GOAL TROUGH = 15-20 MG/ML FOR JOINT INFECTION * TROUGH PRIOR TO 0600 DOSE ON 05/02/21 TO ENSURE NO ACCUMULATION Pharmacy will continue to follow and will adjust dose/frequency as necessary. Thank you.
[2021-04-30] MEDS ORDERED: VANCOMYCIN HCL 2,500 MG in SODIUM CHLORIDE 0.9% 500 ML IV ONE (17:30)
[2021-04-30 17:41] LABS: Appearance Synovial Fluid TURBID; Color Synovial Fluid PALE YELLOW; Mononuclear WBC Synovial 0.5 %; Polynuclear WBC Synovial 99.5 %; RBC Synovial Fluid (A) 104000 /uL; Source Synovial Fluid KNEE; WBC Synovial Fluid (A) 349440 /ul (0-200)
[2021-04-30] MEDS: SIMVASTATIN 40 MG TAB PO SCH (20:25)
[2021-05-01] MEDS: HYDROmorphone INJ 0.5 MG/0.5 ML SYR IV PRN ×2 (03:04→13:09)
[2021-05-01] MEDS: SODIUM CHLORIDE 0.9% 1000ML 1,000 ML IV SCH ×4 (05:11→22:17)
[2021-05-01] MEDS: HEPARIN SOD 5,000 UNIT/0.5 ML VIAL SQ SCH ×2 (05:12→17:14)
[2021-05-01] MEDS: oxyCODONE HCL IR 5 MG TAB (IMMEDIATE RELEASE) PO PRN ×3 (05:13→12:28)
[2021-05-01 07:22] LABS: Basophils # (auto) 0.01 K/uL (0-0.2); Basophils % (auto) 0.1 %; Eosinophils # (auto) 0.18 K/uL (0-0.5); Eosinophils % (auto) 1.4 %; Hematocrit (blood only) 34.4 % (37-47); Hemoglobin 11.5 g/dL (12.0-16.0); Immature Granulocytes # (auto) 0.06 K/uL (0.00-0.02); Immature Granulocytes % (auto) 0.5 %; Lymphocytes # (auto) 1.26 K/uL (1.2-3.4); Lymphocytes % (auto) 9.9 %; Mean Corpuscular Hemoglobin 29.7 pg (25-34); Mean Corpuscular Hgb Conc 33.4 g/dL (32-36); Mean Corpuscular Volume 88.9 fL (80-100); Mean Platelet Volume 9.3 fL (7.4-10.4); Monocytes # (auto) 1.39 K/uL (0.11-0.59); Monocytes % (auto) 10.9 %; Neutrophils # (auto) 9.84 K/uL (1.4-6.5); Neutrophils % (auto) 77.2 %; Platelet Count 211 K/uL (130-400); RDW Coefficient of Variation 13.5 % (11.5-14.5); RDW Standard Deviation 44.3 fL (36.4-46.3); Red Blood Count 3.87 M/uL (4.2-5.4); White Blood Count 12.74 K/uL (4.8-10.8)
[2021-05-01 07:58] LABS: BUN Creatinine Ratio 24.8 (10-20); Calcium 7.7 mg/dl (8.5-10.1); Creatinine Clr Calc Pharmacy 58.7 ml/min; Est GFR (African American) 68.3 ml/min; Est GFR (Non-African American) 58.9 ml/min; Potassium 3.3 mmol/L (3.5-5.1)
[2021-05-01] MEDS: POTASSIUM CHLORIDE / WTR 10 MEQ/100 ML PLCT IV SCH ×2 (08:17→10:26)
[2021-05-01] MEDS: ASPIRIN 81 MG ECTAB PO SCH (08:19)
[2021-05-01] MEDS: MULTIVITAMIN TAB PO SCH (08:19)
[2021-05-01] MEDS: FUROSEMIDE 40 MG TAB PO SCH (08:19)
[2021-05-01] MEDS: METOPROLOL SUCC 25MG EXT REL TAB PO SCH (08:20)
--- NOTE | 2021-05-01 09:55 | Anesthesiology Consultation ---
Date of Service May 01, 2021 Assessment & Plan (1) Encounter for pre-operative examination: Chart Review Chart Review: medical charge entry specialist initiated History Surgery Operation Date: 05/01/21 07:00 Proposed Procedures p Left Knee Incision and Drainage Knee, Poly Exchange - Nnamdi Zhu MD Height/Weight Height: 5 ft 4 in Weight: 100.471 kg Allergies Allergy/AdvReac Type Severity Reaction Status Date / Time cephalexin Allergy Intermediate ITCHY RASH Verified 04/29/21 13:50 Medications Home Medications Medication Instructions Recorded Confirmed Last Taken betamethasone dipropionate 1 applic TOPICAL DIRECTED PRN 04/26/20 04/29/21 Unknown clobetasol 1 applic TOPICAL DIRECTED PRN 04/26/20 04/29/21 Unknown ibuprofen 400 mg PO Q6H PRN 04/26/20 04/29/21 Unknown lisinopril 40 mg PO QAM 04/26/20 04/29/21 04/26/20 loratadine 10 mg PO DAILY PRN 04/26/20 04/29/21 Unknown metoprolol succinate 25 mg PO QAM 04/26/20 04/29/21 04/26/20 multivitamin 1 tab PO QAM 04/26/20 04/29/21 04/26/20 polyvinyl alcohol-povidone 1 drp OPHTHALMIC (EYE) DIRECTED 04/26/20 04/29/21 Unknown PRN simvastatin 40 mg PO QPM 04/26/20 04/29/21 04/25/20 hydrochlorothiazide 50 mg PO DAILY #30 tab 04/28/20 04/29/21 Unknown aspirin [Aspir-81] 81 mg PO QAM 04/29/21 04/29/21 04/29/21 biotin 1 mg PO DAILY 04/29/21 04/29/21 Unknown Active Medications Generic Name Dose Route Start Last Admin Trade Name Freq PRN Reason Stop Dose Admin Acetaminophen 650 mg 04/29/21 16:11 04/29/21 18:19 Acetaminophen 325 Mg Tab PO 05/29/21 16:10 650 mg Q4H PRN Administration pain/fever Aspirin 81 mg 04/30/21 09:00 05/01/21 08:19 Aspirin 81 Mg Ectab PO 05/30/21 08:59 81 mg QAM NEFTALY Administration Furosemide 40 mg 04/30/21 11:45 05/01/21 08:19 Furosemide 40 Mg Tab PO 05/30/21 11:44 40 mg QAM NEFTALY Administration Heparin Sodium (Porcine) 5,000 units 04/29/21 16:11 05/01/21 05:12 Heparin Sod 5,000 Unit/0.5 Ml Vial SQ 05/29/21 16:10 Not Given Q8 NEFTALY Hydromorphone HCl 0.5 mg 04/29/21 20:24 05/01/21 03:04 Hydromorphone Inj 0.5 Mg/0.5 Ml Syr IV 05/13/21 20:23 0.5 mg Q3H PRN Administration Pain Ceftriaxone Sodium 2,000 mg/ 70 mls @ 100 mls/hr 04/30/21 12:00 04/30/21 13:41 Dextrose IV 05/06/21 11:59 Infused Q24H NEFTALY Infusion Protocol Sodium Chloride 1,000 mls @ 80 mls/hr 04/30/21 16:30 05/01/21 05:11 Nss 1000ml IV 05/30/21 16:29 80 mls/hr .[id number] NEFTALY Administration Potassium Chloride 10 meq in 100 mls @ 100 mls/hr 05/01/21 08:30 05/01/21 09:41 K Uche / Wtr IV 05/01/21 10:29 Infused Q1H NEFTALY Infusion Metoprolol Succinate 25 mg 04/30/21 09:00 05/01/21 08:20 Metoprolol Succ 25mg Ext Rel Tab PO 05/30/21 08:59 25 mg QAM NEFTALY Administration Multivitamins 1 tab 04/30/21 09:00 05/01/21 08:19 Multivitamin Tab PO 05/30/21 08:59 1 tab QAM NEFTALY Administration Oxycodone HCl 5 mg 04/30/21 13:36 05/01/21 08:18 Oxycodone Hcl Ir 5 Mg Tab (Immediate Release) PO 05/14/21 13:35 5 mg Q4H PRN Administration Pain Simvastatin 40 mg 04/29/21 21:00 04/30/21 20:25 Simvastatin 40 Mg Tab PO 05/29/21 20:59 40 mg QPM NEFTALY Administration Tramadol HCl 25 - 50 mg 04/29/21 20:24 04/30/21 08:20 Tramadol Hcl 50 Mg Tablet PO 05/29/21 20:23 50 mg Q4H PRN Administration Pain NPO Date Last Intake of Fluids: 04/30/21 Time Last Intake of Fluids: 23:50 Past Medical History Medical History HLD (hyperlipidemia) HTN (hypertension) Lymphedema Past Family History Family History Other Heart disease Lung disease Stroke Past Surgical History Surgical History H/O dilation and curettage H/O vaginal hysterectomy History of appendectomy History of knee replacement procedure of left knee History of knee replacement procedure of right knee Social History Smoking Status: Never smoker Smoking End Date: 1969 Hx Alcohol Use: No alcohol intake frequency: holidays/special occasions only Hx Substance Use: No Physical Exam Vital Signs Last Vital Signs Temp 99.0 F 05/01/21 07:39 Pulse 8 L 05/01/21 07:39 Resp 16 05/01/21 07:39 BP 126/76 05/01/21 07:39 Pulse Ox 95 05/01/21 07:39 Testing Laboratory Results 05/01/21 07:02 05/01/21 07:02 04/30/21 16:15 Gram Stain - Final Knee,Left Electrocardiogram Date: 04/26/21 Normal sinus rhythm, rate 95 bpm Low voltage QRS Borderline ECG When compared with ECG of 21-JUL-2017 14:27, Vent. rate has increased BY 38 BPM Confirmed by Nabeel Mora ([id number]) on 04/27/2020 2:25:24 PM Chest X-Ray Date: 04/29/21 IMPRESSION: Mild cardiomegaly with no active disease in the chest.
[2021-05-01] MEDS: traMADol HCL 50 MG TABLET PO PRN ×2 (11:26→21:44)
[2021-05-01] MEDS: VANCOMYCIN HCL 1,500 MG in SODIUM CHLORIDE 0.9% 500 ML IV SCH (13:14)
[2021-05-01] MEDS: cefTRIAXone SODIUM 2,000 MG in DEXTROSE 5% 50 ML IV SCH (13:14)
[2021-05-01] MEDS ORDERED: GENTAMICIN SULFATE 40 MG/ML 2 ML VIAL ONE (14:04)
[2021-05-01] MEDS ORDERED: VANCOMYCIN HCL 1000MG/20ML VIAL ONE (14:05)
[2021-05-01] MEDS ORDERED: ePHEDrine sulfate 50 MG/ML AMP IV PRN (14:28)
[2021-05-01] MEDS ORDERED: ONDANSETRON INJ 2 MG/ML 2 ML VIAL IV PRN ×2 (14:28→18:25)
[2021-05-01] MEDS ORDERED: fentaNYL citrate 100 MCG/2 ML VIAL IV PRN (14:28)
[2021-05-01] MEDS ORDERED: ATROPINE SULFATE 0.1 MG/ML 10ML SYR IV PRN (14:28)
[2021-05-01] MEDS ORDERED: ONDANSETRON INJ 2 MG/ML 2 ML VIAL ONE ×2 (14:57→16:20)
[2021-05-01] MEDS ORDERED: DEXAMETHASONE SOD INJ 4 MG/ML VIAL ONE (14:57)
[2021-05-01] MEDS ORDERED: fentaNYL citrate 100 MCG/2 ML VIAL ONE (14:57)
[2021-05-01] MEDS ORDERED: MIDAZOLAM HCL 1 MG/ML 2ML VIAL ONE (14:57)
[2021-05-01] MEDS ORDERED: PROPOFOL IV EMULSION 10 MG/ML 20 ML VIAL IV ONE (14:57)
[2021-05-01] MEDS ORDERED: LIDOCAINE 2% 2 ML VIAL/AMP(20MG/ML) INFIL ONE (14:57)
[2021-05-01] MEDS ORDERED: HYDROmorphone INJ 2 MG/ML SYR/VIAL ONE (15:14)
[2021-05-01] MEDS ORDERED: BACITRACIN OINT 15 GM TUBE ONE (15:27)
[2021-05-01] MEDS ORDERED: ACETAMINOPHEN 1000 MG/100 ML IV IV ONE (15:45)
[2021-05-01] MEDS ORDERED: PHENYLEPHRINE HCL 10 MG/ML VIAL ONE (15:52)
[2021-05-01] MEDS ORDERED: PHENYLEPHRINE 100MCG/ML 5ML SYR ONE (15:52)
--- NOTE | 2021-05-01 17:19 | Post Operative Brief Note ---
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, left lower leg cellulitis and lymphedema, obesity BMI 38 I identified the patient and participated in the time-out.: Yes Procedure Operation Date: 05/01/21 07:00 Actual Procedures p Left Knee Incision and Drainage Knee, Synovectomy, Polyethylene Exchange, Application of Stimulan Beads(Left) - Nnamdi Zhu MD Surgeon Nnamdi Zhu MD Functional Tester Ever JENNINGS Estimated Blood Loss 10 Findings Consistent with Post-Op Diagnosis Specimens Cultures x2 Drains Hemovac Drain Anesthesia Type General Complications none Disposition Accompanied Patient To Recovery: No Disposition: Recovery Room Overlapping Procedure I was immediately available: during the entire case.
--- NOTE | 2021-05-01 17:36 | Hospitalist Progress Note ---
Date of Service May 01, 2021 Assessment & Plan (1) Cellulitis of left leg: This is a 75yo F with a PMH of HTN, dyslipidemia, lymphedema and other medical problems listed below who presents with pain and redness in LLE x 3 days. LLE cellulitis extending over knee joint with known prosthesis Has significant leukocytosis Redness and warmth extending up to upper part of the medial side of the knee A few skin lesions noted Advised to keep the legs elevated while in bed Has been started on intravenous ceftriaxone Septic arthritis left knee Left knee effusion Associated with severe pain with movement X-ray of the knee did show moderate amount of fluid Likely inflammatory and doubt any septic arthritis Pain has been noted to be worse this morning We will ask for Ortho evaluation and possible arthrocentesis if indicated Status post aspiration and the Gram stain is suggestive of septic arthritis Vancomycin was added yesterday and she will have left knee drainage and stimulant beads implanted today (2) Lymphedema: History of bilateral lymphedema complicating the leg cellulitis on the left Awaiting doppler of BLE to evaluate for DVT -no evidence of DVT Has been on outpatient hydrochlorothiazide Will try small dose of Lasix Advised the legs to be elevated while in bed Compression stockings will be prescribed on discharge (3) HTN (hypertension): BP on lower end of normal, 104/62. Continue HCTZ, lisinopril and Toprol with hold parameters Blood pressure remains upper side (4) HLD (hyperlipidemia): Continue statin DVT Ppx: SQ heparin Code status: FULL PCP: Paty Dispo: Admitted to med/surg Admission and Anticipated Discharge Date Admission Date: April 29, 2021 Subjective 04/30/2021 The patient was seen and examined in medical telemetry unit She has been complaining of more pain in the left knee joint Denies any fever and/or chills Her redness and swelling of the left lower extremity have diminished 05/01/2021 The patient was seen and examined in medical telemetry unit She is a status post left knee incision and drainage, synovectomy, polyethylene exchange and application of stimulant beads Remains drowsy and complains of pain in the left knee Review of Systems Review of Systems: All systems reviewed and are unremarkable except as noted below Musculoskeletal: + joint pain (Left knee swelling with extreme pain with movement) and + swelling (Left leg swelling with redness) Physical Exam Physical Exam: Lying in bed with left knee pain and drowsiness Constitutional: well developed, well nourished, + ill appearing and + obese Eyes: PERRL, conjunctivae normal, anicteric sclerae ENMT: external ear and nose normal, oropharynx normal Neck: trachea midline, no thyromegaly Respiratory: no respiratory distress Auscultation: lungs clear to auscultation bilaterally Cardiovascular: Rate/Rhythm: regular rate and regular rhythm Heart Sounds: no murmur Extremities: + edema (Bilateral leg edema. Likely has component of lymphedema. More on the left) Gastrointestinal (Abdomen): Inspection/Auscultation: + abdomen distended; + abnormal bowel sounds Percussion/Palpation: abdomen soft; abdomen nontender Musculoskeletal: Knee: + effusion (Left knee swollen with moderate fluid and extremely painful with movement) and + skin erythema (Minimal erythema of the skin and warmth) Neurologic: Alert and awake Lymphatic: no cervical or axillary lymphadenopathy Results & Data Results & Data ([facility]) Vital Signs (Past 12 Hours) Vital Signs Temp Pulse Resp BP Pulse Ox 05/01/21 15:05 36.7 C 108 H 20 140/61 97 05/01/21 07:39 37.2 C 8 L 16 126/76 95 Laboratory Results Short CBC 05/01/21 Range/Units 07:02 WBC 12.74 H (4.8-10.8) K/uL Hgb 11.5 L (12.0-16.0) g/dL Hct 34.4 L (37-47) % Plt Count 211 (130-400) K/uL BMP 05/01/21 07:02 Sodium 134 L Potassium 3.3 L Chloride 98 Carbon Dioxide 30 BUN 23 H Creatinine 0.94 Glucose 117 H Calcium 7.7 L Medications Administered Current Inpatient Medications Acetaminophen (Acetaminophen 325 Mg Tab) 650 mg PO Q4H PRN PRN Reason: pain/fever Stop: 05/29/21 16:10 Last Admin: 04/29/21 18:19 Dose: 650 mg Documented by: Artificial Tears (Artificial Tears) 1 drops OP UD PRN PRN Reason: Dry Eyes Stop: 05/29/21 16:22 Aspirin (Aspirin 81 Mg Ectab) [facility] [place]: 05/30/21 08:59 Last Admin: 05/01/21 08:19 Dose: 81 mg Documented by: Atropine Sulfate (Atropine Sulfate 0.1 Mg/Ml 10ml Syr) 0.5 mg IV Q1M PRN PRN Reason: PACU Use-HR<40 &/or Bradycardi Stop: 05/01/21 22:28 Betamethasone Dipropion Augmented (Betamethasone Dip Aug (Diprolene) 0.05% Cr 15 Gm Tube) 1 appln EXT UD PRN PRN Reason: Skin Irritation Stop: 05/29/21 16:20 Clobetasol Propionate (Clobetasol Propionate 0.05% Oint 15 Gm Tube) 1 appln EXT UD PRN PRN Reason: Skin Irritation Stop: 05/29/21 16:21 Ephedrine Sulfate (Ephedrine Sulfate 50 Mg/Ml Amp) 5 mg IV Q5M PRN PRN Reason: PACU Use Only-SBP<90 mmHg Stop: 05/01/21 22:28 Fentanyl Citrate (Fentanyl Citrate 100 Mcg/2 Ml Vial) 50 mcg IV Q5M PRN PRN Reason: PACU Use Only-Pain Stop: 05/01/21 22:28 Furosemide (Furosemide 40 Mg Tab) 40 mg PO QAM [facility] Stop: 05/30/21 11:44 Last Admin: 05/01/21 08:19 Dose: 40 mg Documented by: Heparin Sodium (Porcine) (Heparin Sod 5,000 Unit/0.5 Ml Vial) 5,000 units SQ Q8 NEFTALY Stop: 05/29/21 16:10 Last Admin: 05/01/21 17:14 Dose: Not Given Documented by: Hydrochlorothiazide (Hydrochlorothiazide 25 Mg Tab) 50 mg PO DAILY [facility] Stop: 05/30/21 08:59 Hydromorphone HCl (Hydromorphone Inj 0.5 Mg/0.5 Ml Syr) 0.5 mg IV Q3H PRN PRN Reason: Pain Stop: 05/13/21 20:23 Last Admin: 05/01/21 13:09 Dose: 0.5 mg Documented by: Ceftriaxone Sodium 2,000 mg/ (Dextrose) 70 mls @ 100 mls/hr IV Q24H [facility]; Protocol Stop: 05/06/21 11:59 Last Infusion: 05/01/21 14:29 Dose: Infused Documented by: Sodium Chloride (Nss 1000ml) 1,000 mls @ 80 mls/hr IV .[id number] [facility] Stop: 05/30/21 16:29 Last Admin: 05/01/21 05:11 Dose: 80 mls/hr Documented by: Vancomycin HCl 1,500 mg/ (Sodium Chloride) 530 mls @ 200 mls/hr IV Q18H [facility] Stop: 06/12/21 11:59 Last Admin: 05/01/21 13:14 Dose: 200 mls/hr Documented by: Loratadine (Loratadine 10 Mg Tab) 10 mg PO DAILY PRN PRN Reason: Congestion Stop: 05/29/21 16:10 Metoprolol Succinate (Metoprolol Succ 25mg Ext Rel Tab) 25 mg PO QAM [facility] Stop: 05/30/21 08:59 Last Admin: 05/01/21 08:20 Dose: 25 mg Documented by: Miscellaneous Information (Vancomycin Consult Active) 1 ea N/A UD PRN PRN Reason: Consult Stop: 05/30/21 16:56 Multivitamins (Multivitamin Tab) 1 tab PO [facility] Stop: 05/30/21 08:59 Last Admin: 05/01/21 08:19 Dose: 1 tab Documented by: Ondansetron HCl (Ondansetron Inj 2 Mg/Ml 2 Ml Vial) 4 mg IV Q6H PRN PRN Reason: Nausea Stop: 05/29/21 16:10 Ondansetron HCl (Ondansetron Inj 2 Mg/Ml 2 Ml Vial) 4 mg IV ONCE PRN PRN Reason: PACU Use Only-Nausea/Vomiting Stop: 05/01/21 22:29 Oxycodone HCl (Oxycodone Hcl Ir 5 Mg Tab (Immediate Release)) 5 mg PO Q4H PRN PRN Reason: Pain Stop: 05/14/21 13:35 Last Admin: 05/01/21 12:28 Dose: 5 mg Documented by: Polyethylene Glycol (Polyethylene (Miralax) 17 Gm Pack) 17 gm PO DAILY PRN PRN Reason: Constipation Stop: 05/29/21 16:10 Simvastatin (Simvastatin 40 Mg Tab) 40 mg PO QPM [facility] Stop: 05/29/21 20:59 Last Admin: 04/30/21 20:25 Dose: 40 mg Documented by: Tramadol HCl (Tramadol Hcl 50 Mg Tablet) 25 - 50 mg PO Q4H PRN PRN Reason: Pain Stop: 05/29/21 20:23 Last Admin: 05/01/21 11:26 Dose: 50 mg Documented by:
[2021-05-01] MEDS ORDERED: METOCLOPRAMIDE HCL INJ 5 MG/ML 2 ML VIAL IV PRN (18:25)
[2021-05-01] MEDS ORDERED: NALOXONE HCL 0.4 MG/1 ML VIAL/CARP IV PRN (18:25)
[2021-05-01] MEDS ORDERED: MAGNESIUM HYDROXIDE SUSP 30 ML UDC PO PRN (18:25)
[2021-05-01] MEDS ORDERED: bisacodyL 10 MG SUPP PR PRN (18:25)
--- NOTE | 2021-05-01 18:27 | Anesthesiology Progress Note ---
Date of Service May 01, 2021 Anesthesia Post Procedure Vital Signs Vital Signs: Temp Pulse Pulse Resp BP BP Pulse Ox 05/01/21 18:10 97 H 14 122/70 98 05/01/21 18:00 102 H 14 104/61 100 05/01/21 17:50 105 H 12 100/59 L 100 05/01/21 17:44 36.5 C 112 H 16 113/61 100 05/01/21 15:05 36.7 C 108 H 20 140/61 97 05/01/21 07:39 37.2 C 8 L 16 126/76 95 05/01/21 03:04 108 H 121/75 04/30/21 23:54 113 H 126/81 04/30/21 23:08 36.9 C 105 H 18 106/67 95 04/30/21 19:25 89 116/72 04/30/21 19:10 36.8 C 111 H 20 113/71 94 Pain Intensity Left Leg: Pain Intensity: 5 Transfer of Care Handoff Completed per policy Notes Mental Status: alert / awake / arousable Patient Amnestic to Procedure: Yes Nausea / Vomiting: adequately controlled Pain: adequately controlled Airway Patency, RR, SpO2: stable & adequate BP & HR: stable & adequate Hydration State: stable & adequate Anesthetic Complications: no major complications apparent
--- NOTE | 2021-05-01 18:42 | XRay Report ---
XR knee LT 1 or 2V routine CLINICAL HISTORY: Surgical Post Op COMPARISON: April 29, 2021 DISCUSSION: Prosthetic left knee joint is again seen. Interval placement of multiple round hyperdense structures surrounding distal femur. Mild subcutaneous soft tissue edema, surgical drainage and skin calir are seen. IMPRESSION: Postoperative changes as detailed above. ACT 112: Negative or not required by law. The above report was generated using voice recognition software. It may contain grammatical, syntax o r spelling errors. Electronically signed by: Marlyn Holloway DO 05/01/2021 6:41 PM
--- NOTE | 2021-05-01 19:46 | Operative Report (OR) ---
DATE OF PROCEDURE: 05/01/2021 INDICATIONS FOR PROCEDURE: The patient is a 75-year-old female who developed acute pain and swelling in her knee, fever and chills, feeling ill associated with a left lower leg cellulitis and preexisti ng lymphedema in that leg. She was admitted to the hospital. It has been approximately 5 days since the onset of her symptoms. Examination demonstrates she has lymphedema in the left lower extremity. She has cellulitis consistent with infectious cellulitis. The patient has a left total knee replac ement after bilateral knee replacements performed in 2005. She has a Fenton total knee replacement. Her radiographs demonstrate no loosening. She does have an effusion. We did do an aspiration and her white count was over 300,000. She had positive gram-positive cocci and cultures growing out Stre ptococcus. PREOPERATIVE DIAGNOSES: Acute septic arthritis in a total knee replacement, left knee, left lower ex tremity cellulitis and lymphedema, obesity, body mass index of 38. POSTOPERATIVE DIAGNOSES: Acute septic arthritis in a total knee replacement, left knee, left lower e xtremity cellulitis and lymphedema, obesity, body mass index of 38, with some evidence of polyethylen e wear and minor osteolysis, no loosening of implants. PROCEDURE: Left knee incision and drainage, irrigation and debridement, electrocautery synovectomy, tibial polyethylene exchange, placement of antibiotic beads and closure over drains, and application of superficial wound VAC. SURGEON: Nnamdi Zhu MD. BLEACH PACKER: Jose Armando Birto PA-C. ANESTHESIA: General anesthesia. COMPLICATIONS: None. ESTIMATED BLOOD LOSS: 10 mL. SPECIMENS: Two blood cultures. DRAINS: Two Hemovacs. DESCRIPTION OF OPERATIVE PROCEDURE: The patient was taken to the operating room, anesthetized under general anesthetic. Her left leg and knee exam demonstrates that she had a red cellulitis of her mid calf down to her ankle area. She had several old blisters that are scabbed over and she had one bli ster with some pus in it on the lateral lower leg. This was a superficial blister and a sterile spon ge was used to evacuate the pus and it was noted that the blister did not show any deep necrosis. Th en, in the supine position, a pneumatic tourniquet was placed about her left upper obese thigh. The knee exam demonstrated 0 through 90 degrees range of motion with an effusion. There was no drainage from the knee at all. There was increased warmth. After the left lower extremity was prepped and dr aped in a sterile fashion with ChloraPrep, the leg was elevated to drain the veins and no Esmarch wa s used due to the infection. The pneumatic tourniquet was then raised to 350 mmHg. Then, an anterior incision was made through her previous anterior scar. The skin was incised sharply , deep layer of fat was divided down to the fascia. Subcutaneous flaps were elevated. An incision w as made through the medial retinaculum and pus was noted to come out of the knee joint in copious yessenia unts. This was a yellow cloudy thick joint effusion consistent with infection. Two cultures were ob tained. Incision was carried up into the mid third of the quadriceps tendon and down to the medial t ibial tubercle and then we washed the knee out with 3 liters of saline solution. I then did an electrocautery synovectomy removing the synovium from the suprapatellar pouch, medial a nd lateral gutters. We removed some of the scarred infrapatellar fat pad, so I could get retractors i n to expose the tibial polyethylene. The patellar polyethylene had a little bit of wear on it and th ere was one area toward the medial side where there was a little bit of undermining with some synovia l tissue consistent with some chronic synovitis and osteolysis. The patellar component was stable, w ell fixed. The remainder of the patella was totally secure and there was no evidence of any other ar eas of osteolysis. The femoral and tibial components were solid and well fixed. I did not see any e vidence of any osteolysis surrounding those components. The tibial polyethylene was then removed using a curved osteotome and then hemostat used to remove th e fixating wire and then we used a tenaculum to remove the polyethylene. This was inspected and the surfaces showed some chronic discoloration of the polyethylene due to possible oxidation and there wa s some surface wear, but no major thinning of the polyethylene component. The polyethylene post was intact. At this time, we were able to access the posterior knee joint and further synovectomy perfor med posteriorly with rongeur and in the notch area, rongeur and curette were used. Subsequently, we went ahead and irrigated out the knee copiously again. Now with access to all the metal, Betadine sc rub was performed to the metal part of the components. Then, this was irrigated out with more saline solution. Then, irrigation of 9 liters and then did a trial reduction and a 9 mm trial gave a stabl e knee through her full motion, which was about 0-95 degrees. I see a very obese leg in her calf and middle thigh at that point. The knee was then soaked with Betadine soak with removal of the trial implant and all metal exposed. Betadine solution was used to soak the knee for 3 minutes and this was irrigated out with more salin e solution followed by placement of the new tibial polyethylene, which was the Fenton Triathlon size 2, 9 mm thick tibial posterior stabilized insert. This was impacted in position with good fit. The n, after further irrigation, the Stimulan beads, which were made with 10 mL kit with vancomycin 1 gra m added were placed into the suprapatellar pouch and the gutters and 2 drains were brought out latera lly, connected to Hemovac and her quadriceps tendon and medium retinaculum were closed with interrupt ed [id number] #1 Vicryl sutures with antibacterial Vicryl. Then, the subcutaneous tissue was c losed in layers with interrupted 2-0 antibacterial Vicryl and then the skin was closed with clair, and then a superficial PHILLIP and Acticoat wound VAC was applied and Xeroform dressings were placed on the cellulitic blistered areas and an Driss wrap was placed from the foot to the thigh. The patient to lerated the procedure well. Jose Armando Brito PA-C was my international first officer. He functioned as international first officer in the entire procedur e. He assisted in retraction during the procedure and assisted in the subcutaneous and skin wound cl osure and the superficial wound VAC application and will participate in postoperative care of the [facility] ie. Job ID: [id number]
[2021-05-01] MEDS: SIMVASTATIN 40 MG TAB PO SCH (20:16)
[2021-05-01] MEDS: SENNA 8.6 MG TAB PO SCH (20:19)
[2021-05-01] MEDS: DOCUSATE SODIUM 100 MG CAP PO SCH (20:19)
[2021-05-01] MEDS: ACETAMINOPHEN 500 MG TAB PO SCH (21:45)
[2021-05-02] MEDS: oxyCODONE HCL IR 5 MG TAB (IMMEDIATE RELEASE) PO PRN ×2 (04:22→17:41)
[2021-05-02] MEDS ORDERED: VANCOMYCIN TROUGH ONE (05:30)
[2021-05-02] MEDS ORDERED: MICONAZOLE NITRATE POWDER 43 GM EXT PRN (05:43)
[2021-05-02 05:53] LABS: Hematocrit (blood only) 34.2 % (37-47); Hemoglobin 11.6 g/dL (12.0-16.0); Immature Granulocytes # (auto) 0.04 K/uL (0.00-0.02); Immature Granulocytes % (auto) 0.4 %; Lymphocytes # (auto) 0.61 K/uL (1.2-3.4); Lymphocytes % (auto) 6.5 %; Mean Corpuscular Hemoglobin 29.9 pg (25-34); Mean Corpuscular Hgb Conc 33.9 g/dL (32-36); Mean Corpuscular Volume 88.1 fL (80-100); Mean Platelet Volume 9.1 fL (7.4-10.4); Monocytes # (auto) 0.54 K/uL (0.11-0.59); Monocytes % (auto) 5.8 %; Neutrophils # (auto) 8.19 K/uL (1.4-6.5); Neutrophils % (auto) 87.3 %; Platelet Count 235 K/uL (130-400); RDW Coefficient of Variation 13.3 % (11.5-14.5); RDW Standard Deviation 42.6 fL (36.4-46.3); Red Blood Count 3.88 M/uL (4.2-5.4); White Blood Count 9.38 K/uL (4.8-10.8)
[2021-05-02 06:22] LABS: BUN Creatinine Ratio 24.1 (10-20); Calcium 7.8 mg/dl (8.5-10.1); Creatinine Clr Calc Pharmacy 56.9 ml/min; Est GFR (African American) 65.8 ml/min; Est GFR (Non-African American) 56.7 ml/min; Potassium 3.4 mmol/L (3.5-5.1)
[2021-05-02] MEDS: VANCOMYCIN HCL 1,500 MG in SODIUM CHLORIDE 0.9% 500 ML IV SCH (06:33)
[2021-05-02] MEDS: ACETAMINOPHEN 500 MG TAB PO SCH ×3 (06:34→22:10)
--- NOTE | 2021-05-02 07:14 | Orthopedic Progress Note ---
Date of Service May 02, 2021 Assessment & Plan (1) Infection of total left knee replacement: POD#1 left knee I&D, synovectomy, poly exchange, placement of stimulan beads -PT/OT-quad sets, gait training, gentle ROM -Pain management -DVT prophylaxis-SCDs, TEDs, switched to lovenox -AM labs-hemoglobin stable at 11.6. Leukocytosis resolving. -Grams stain with gram + cocci. Intra op gram stain with no organisms, many WBCs. Intra op cultures pending. Culture from aspirate growing Group B strep, sensitivities pending. -Continue IV antibiotics. ID consult pending. Will need prolonged IV antibiotics. Admission and Anticipated Discharge Date Admission Date: April 29, 2021 Review of Systems Review of Systems: All systems reviewed & are unremarkable except as noted in Subjective Physical Exam Physical Exam: Left knee dressing is c/d/i, toes mobile with good dorsiflexion. Mild calf tenderness but with diffuse lower leg tenderness, negative leif's. Distally n/v status and sensation intact. Constitutional: well developed and well nourished; no acute distress Results & Data ([facility]) Vital Signs (Past 12 Hours) Vital Signs Temp Pulse Resp BP Pulse Ox 05/02/21 03:31 36.5 C 73 18 140/81 97 05/01/21 22:16 36.5 C 84 18 103/68 98 05/01/21 21:20 36.7 C 71 18 151/81 H 96 05/01/21 20:15 36.5 C 84 18 148/71 H 97 05/01/21 19:45 36.5 C 82 16 134/84 99 (1) Infection of total left knee replacement Encounter type: subsequent encounter Qualified Code(s): T84.54XD - Infection and inflammatory reaction due to internal left knee prosthesis, subsequent encounter
[2021-05-02] MEDS ORDERED: MULTIVITAMIN TAB PO SCH (09:00)
[2021-05-02] MEDS ORDERED: RIVAROXABAN 10 MG TABLET PO SCH (09:00)
[2021-05-02] MEDS ORDERED: POTASSIUM CHLORIDE CRTAB 20 MEQ TABCR PO STA (09:05)
[2021-05-02] MEDS: METOPROLOL SUCC 25MG EXT REL TAB PO SCH (09:41)
[2021-05-02] MEDS: FUROSEMIDE 40 MG TAB PO SCH (09:41)
[2021-05-02] MEDS: MULTIVITAMIN TAB PO SCH (09:41)
[2021-05-02] MEDS: DOCUSATE SODIUM 100 MG CAP PO SCH ×2 (09:41→22:10)
[2021-05-02] MEDS: ENOXAPARIN INJ 40 MG/0.4 ML SYR SQ SCH (09:42)
[2021-05-02] MEDS: traMADol HCL 50 MG TABLET PO PRN ×2 (09:45→17:41)
--- NOTE | 2021-05-02 10:50 | Pharmacy Report ---
Pharmacy Abx Dose Short Note - Date of Service May 02, 2021 - Assessment & Plan Assessment 75 year old F on vancomycin and ceftriaxone for infection of total left knee replacement * POD#1 left knee I&D, synovectomy, poly exchange, placement of beads * knee culture growing lemus-sensitive group B beta strep * ID consultation pending Plan Vancomycin * Trough level of 15.2 mcg/mL is therapeutic (not at steady state) * I anticipate some accumulation of vancomycin due to BMI of 38, therefore I will empirically decrease dosing frequency * Start vancomycin 1750 mg (17 mg/kg) IV every 24 hours * Predicted trough/AUC: 16.2 mcg/mL, 544 * Repeat trough level will be ordered with continued therapy * Consider discontinuation of vancomycin since ceftriaxone is susceptible Pharmacy will continue to follow and will adjust dose/frequency as necessary. Thank you.
[2021-05-02] MEDS: cefTRIAXone SODIUM 2,000 MG in DEXTROSE 5% 50 ML IV SCH (12:37)
--- NOTE | 2021-05-02 13:56 | Hospitalist Progress Note ---
Date of Service May 02, 2021 Assessment & Plan (1) Cellulitis of left leg: This is a 75yo F with a PMH of HTN, dyslipidemia, lymphedema and other medical problems listed below who presents with pain and redness in LLE x 3 days. LLE cellulitis extending over knee joint with known prosthesis Has significant leukocytosis Redness and warmth extending up to upper part of the medial side of the knee A few skin lesions noted Advised to keep the legs elevated while in bed Has been started on intravenous ceftriaxone No fever and chills and the white count has been normalized Septic arthritis left knee Left knee effusion Associated with severe pain with movement X-ray of the knee did show moderate amount of fluid Likely inflammatory and doubt any septic arthritis Pain has been noted to be worse this morning We will ask for Ortho evaluation and possible arthrocentesis if indicated Status post aspiration and the Gram stain is suggestive of septic arthritis Vancomycin was added yesterday and she will have left knee drainage and stimulant beads implanted today Left knee aspirate is growing group be beta streptococci and is pansensitive Awaiting ID recommendation for use of antibiotic and duration (2) Lymphedema: History of bilateral lymphedema complicating the leg cellulitis on the left Awaiting doppler of BLE to evaluate for DVT -no evidence of DVT Has been on outpatient hydrochlorothiazide Will try small dose of Lasix Advised the legs to be elevated while in bed Compression stockings will be prescribed on discharge (3) HTN (hypertension): BP on lower end of normal, 104/62. Continue HCTZ, lisinopril and Toprol with hold parameters Blood pressure remains upper side (4) HLD (hyperlipidemia): Continue statin DVT Ppx: SQ heparin Code status: FULL PCP: Paty Dispo: Admitted to med/surg Admission and Anticipated Discharge Date Admission Date: April 29, 2021 Subjective 04/30/2021 The patient was seen and examined in medical telemetry unit She has been complaining of more pain in the left knee joint Denies any fever and/or chills Her redness and swelling of the left lower extremity have diminished 05/01/2021 The patient was seen and examined in medical telemetry unit She is a status post left knee incision and drainage, synovectomy, polyethylene exchange and application of stimulant beads Remains drowsy and complains of pain in the left knee 05/02/2021 The patient was seen and examined in medical telemetry unit She complains to pain in the left knee Denies any other symptoms. No fever and no chills, no abdominal pain nausea no vomiting Review of Systems Review of Systems: All systems reviewed and are unremarkable except as noted below Musculoskeletal: + joint pain (Left knee swelling with extreme pain with movement) and + swelling (Left leg swelling with redness) Physical Exam Physical Exam: Sitting on a chair with some discomfort in the left knee and left lower extremity Constitutional: well developed, well nourished, + ill appearing and + obese Eyes: PERRL, conjunctivae normal, anicteric sclerae ENMT: external ear and nose normal, oropharynx normal Neck: trachea midline, no thyromegaly Respiratory: no respiratory distress Auscultation: lungs clear to auscultation bilaterally Cardiovascular: Rate/Rhythm: regular rate and regular rhythm Heart Sounds: no murmur Extremities: + edema (Bilateral leg edema. Likely has component of lymphedema. More on the left) Gastrointestinal (Abdomen): Inspection/Auscultation: + abdomen distended; + abnormal bowel sounds Percussion/Palpation: abdomen soft; abdomen nontender Musculoskeletal: Knee: + effusion (Left knee swollen with moderate fluid and extremely painful with movement) and + skin erythema (Minimal erythema of the skin and warmth) Left knee and left lower extremity is in bandage now Neurologic: Alert, awake and oriented x3. No focal sensory and motor deficit appreciated Lymphatic: no cervical or axillary lymphadenopathy Results & Data Results & Data ([facility]) Vital Signs (Past 12 Hours) Vital Signs Temp Pulse Resp BP Pulse Ox 05/02/21 07:25 36.4 C L 77 16 131/73 97 05/02/21 03:31 36.5 C 73 18 140/81 97 Laboratory Results Short CBC 05/02/21 Range/Units 05:31 WBC 9.38 (4.8-10.8) K/uL Hgb 11.6 L (12.0-16.0) g/dL Hct 34.2 L (37-47) % Plt Count 235 (130-400) K/uL BMP 05/02/21 05:31 Sodium 133 L Potassium 3.4 L Chloride 98 Carbon Dioxide 31 BUN 23 H Creatinine 0.97 Glucose 206 H Calcium 7.8 L Medications Administered Current Inpatient Medications Acetaminophen (Acetaminophen 325 Mg Tab) 650 mg PO Q4H PRN PRN Reason: pain/fever Stop: 05/29/21 16:10 Last Admin: 04/29/21 18:19 Dose: 650 mg Documented by: Acetaminophen (Acetaminophen 500 Mg Tab) 1,000 mg PO Q8 [facility] Stop: 05/31/21 21:59 Last Admin: 05/02/21 06:34 Dose: 1,000 mg Documented by: Artificial Tears (Artificial Tears) 1 drops OP UD PRN PRN Reason: Dry Eyes Stop: 05/29/21 16:22 Betamethasone Dipropion Augmented (Betamethasone Dip Aug (Diprolene) 0.05% Cr 15 Gm Tube) 1 appln EXT UD PRN PRN Reason: Skin Irritation Stop: 05/29/21 16:20 Bisacodyl (Bisacodyl 10 Mg Supp) 10 mg [place] DAILY PRN PRN Reason: Constipation Stop: 05/31/21 18:24 Clobetasol Propionate (Clobetasol Propionate 0.05% Oint 15 Gm Tube) 1 appln EXT UD PRN PRN Reason: Skin Irritation Stop: 05/29/21 16:21 Docusate Sodium (Docusate Sodium 100 Mg Cap) 100 mg PO BID [facility] Stop: 05/31/21 20:59 Last Admin: 05/02/21 09:41 Dose: 100 mg Documented by: Enoxaparin Sodium (Enoxaparin Inj 40 Mg/0.4 Ml Syr) 40 mg SQ Q24H [facility] Stop: 06/01/21 08:59 Last Admin: 05/02/21 09:42 Dose: 40 mg Documented by: Furosemide (Furosemide 40 Mg Tab) 40 mg PO QAM [facility] Stop: 05/30/21 11:44 Last Admin: 05/02/21 09:41 Dose: 40 mg Documented by: Hydrochlorothiazide (Hydrochlorothiazide 25 Mg Tab) 50 mg PO DAILY [facility] Stop: 05/30/21 08:59 Hydromorphone HCl (Hydromorphone Inj 0.5 Mg/0.5 Ml Syr) 0.5 mg IV Q3H PRN PRN Reason: Pain Stop: 05/13/21 20:23 Last Admin: 05/01/21 13:09 Dose: 0.5 mg Documented by: Ceftriaxone Sodium 2,000 mg/ (Dextrose) 70 mls @ 100 mls/hr IV Q24H [facility]; Protocol Stop: 05/06/21 11:59 Last Infusion: 05/02/21 13:28 Dose: Infused Documented by: Loratadine (Loratadine 10 Mg Tab) 10 mg PO DAILY PRN PRN Reason: Congestion Stop: 05/29/21 16:10 Magnesium Hydroxide (Magnesium Hydroxide Susp 30 Ml Udc) 30 ml PO Q6H PRN PRN Reason: Constipation Stop: 05/31/21 18:24 Last Admin: 05/02/21 09:45 Dose: 30 ml Documented by: Metoclopramide HCl (Metoclopramide Hcl Inj 5 Mg/Ml 2 Ml Vial) 10 mg IV Q6H PRN PRN Reason: Nausea And Vomiting Stop: 05/31/21 18:24 Metoprolol Succinate (Metoprolol Succ 25mg Ext Rel Tab) 25 mg PO [facility] Stop: 05/30/21 08:59 Last Admin: 05/02/21 09:41 Dose: 25 mg Documented by: Miconazole Nitrate (Miconazole Nitrate Powder 43 Gm) 1 appln EXT PRN PRN PRN Reason: Affected Skin Folds Stop: 06/01/21 05:42 Multivitamins (Multivitamin Tab) 1 tab PO [facility] Stop: 05/30/21 08:59 Last Admin: 05/02/21 09:41 Dose: 1 tab Documented by: Naloxone HCl (Naloxone Hcl 0.4 Mg/1 Ml Vial/Carp) 0.1 mg IV Q5M PRN PRN Reason: Oversedation/Resp Depression Stop: 05/31/21 18:24 Ondansetron HCl (Ondansetron Inj 2 Mg/Ml 2 Ml Vial) 4 mg IV Q6H PRN PRN Reason: Nausea And Vomiting Stop: 05/31/21 18:24 Oxycodone HCl (Oxycodone Hcl Ir 5 Mg Tab (Immediate Release)) 5 mg PO Q4H PRN PRN Reason: Pain Stop: 05/14/21 13:35 Last Admin: 05/02/21 04:22 Dose: 5 mg Documented by: Polyethylene Glycol (Polyethylene (Miralax) 17 Gm Pack) 17 gm PO DAILY PRN PRN Reason: Constipation Stop: 05/29/21 16:10 Sennosides (Senna 8.6 Mg Tab) 17.2 mg PO [facility] Stop: 05/31/21 20:59 Last Admin: 07/08/21 20:19 Dose: 17.2 mg Documented by: Simvastatin (Simvastatin 40 Mg Tab) 40 mg PO QPM [facility] Stop: 05/29/21 20:59 Last Admin: 05/01/21 20:16 Dose: 40 mg Documented by: Tramadol HCl (Tramadol Hcl 50 Mg Tablet) 25 - 50 mg PO Q4H PRN PRN Reason: Pain Stop: 05/29/21 20:23 Last Admin: 05/02/21 09:45 Dose: 50 mg Documented by:
[2021-05-02] MEDS: SIMVASTATIN 40 MG TAB PO SCH (22:10)
[2021-05-02] MEDS: SENNA 8.6 MG TAB PO SCH (22:10)
[2021-05-03] MEDS: oxyCODONE HCL IR 5 MG TAB (IMMEDIATE RELEASE) PO PRN ×3 (03:36→18:03)
[2021-05-03] MEDS ORDERED: VANCOMYCIN HCL 1,750 MG in SODIUM CHLORIDE 0.9% 500 ML IV SCH (06:00)
[2021-05-03] MEDS: ACETAMINOPHEN 500 MG TAB PO SCH ×3 (06:22→21:19)
--- NOTE | 2021-05-03 07:51 | Orthopedic Progress Note ---
Date of Service May 03, 2021 Assessment & Plan (1) Infection of total left knee replacement: POD#2 left knee I&D, synovectomy, poly exchange, placement of stimulan beads -PT/OT-quad sets, gait training, gentle ROM -Pain management -DVT prophylaxis-SCDs, TEDs, switched to lovenox -Grams stain with gram + cocci. Intra op gram stain with no organisms, many WBCs. Intra op growing group B strep. Culture from aspirate growing pansensitive Group B strep. -Continue IV antibiotics. ID consult done yesterday, they recommended explant and per patient would not give antibiotic recommendations. Discussed with Dr. Zhu. Patient had an acute onset of symptoms, no issues prior. Treating as an acute TJI with I&D, poly exchange and IV antibiotics. Will need 6 weeks of IV antibiotics and likely oral antibiotics after. If fails then would require explant and placement of antibiotic spacer. Admission and Anticipated Discharge Date Admission Date: April 29, 2021 Supervising Physician Co-Signing Physician Notes Patient seen and examined agree with above assessment and plan. Subjective POD2. Patient resting in bed comfortably. Pain continues to improve. No complaints of fever or chills. No chest pain, sob, dizziness, n/v/d. Review of Systems Review of Systems: All systems reviewed & are unremarkable except as noted in Subjective Physical Exam Physical Exam: Left knee dressing is c/d/i, toes mobile with good dorsiflexion. Mild calf tenderness but with diffuse lower leg tenderness, negative leif's. Distally n/v status and sensation intact. Constitutional: well developed and well nourished; no acute distress Results & Data ([facility]) Vital Signs (Past 12 Hours) Vital Signs Temp Pulse Resp BP Pulse Ox 05/03/21 00:00 36.5 C 66 18 118/73 98 (1) Infection of total left knee replacement Encounter type: subsequent encounter Qualified Code(s): T84.54XD - Infection and inflammatory reaction due to internal left knee prosthesis, subsequent encounter
[2021-05-03 08:37] LABS: Basophils # (auto) 0.02 K/uL (0-0.2); Basophils % (auto) 0.2 %; Eosinophils # (auto) 0.02 K/uL (0-0.5); Eosinophils % (auto) 0.2 %; Hematocrit (blood only) 36.9 % (37-47); Hemoglobin 12.4 g/dL (12.0-16.0); Immature Granulocytes # (auto) 0.15 K/uL (0.00-0.02); Immature Granulocytes % (auto) 1.6 %; Lymphocytes % (auto) 18.2 %; Mean Corpuscular Hemoglobin 29.8 pg (25-34); Mean Corpuscular Hgb Conc 33.6 g/dL (32-36); Mean Corpuscular Volume 88.7 fL (80-100); Mean Platelet Volume 9.2 fL (7.4-10.4); Monocytes # (auto) 0.95 K/uL (0.11-0.59); Monocytes % (auto) 10.1 %; Neutrophils # (auto) 6.52 K/uL (1.4-6.5); Neutrophils % (auto) 69.7 %; Platelet Count 345 K/uL (130-400); RDW Coefficient of Variation 13.4 % (11.5-14.5); RDW Standard Deviation 43.2 fL (36.4-46.3); Red Blood Count 4.16 M/uL (4.2-5.4); White Blood Count 9.36 K/uL (4.8-10.8)
[2021-05-03] MEDS: FUROSEMIDE 40 MG TAB PO SCH (08:37)
[2021-05-03] MEDS: METOPROLOL SUCC 25MG EXT REL TAB PO SCH (08:37)
[2021-05-03] MEDS: ENOXAPARIN INJ 40 MG/0.4 ML SYR SQ SCH (08:37)
[2021-05-03] MEDS: DOCUSATE SODIUM 100 MG CAP PO SCH ×2 (08:37→21:18)
[2021-05-03] MEDS: MULTIVITAMIN TAB PO SCH (08:37)
[2021-05-03 09:17] LABS: BUN Creatinine Ratio 24.7 (10-20); Calcium 8.8 mg/dl (8.5-10.1); Creatinine Clr Calc Pharmacy 56.3 ml/min; Est GFR (African American) 64.9 ml/min; Potassium 4.3 mmol/L (3.5-5.1)
[2021-05-03] MEDS: HYDROmorphone INJ 0.5 MG/0.5 ML SYR IV PRN (10:05)
[2021-05-03] MEDS: cefTRIAXone SODIUM 2,000 MG in DEXTROSE 5% 50 ML IV SCH (11:39)
--- NOTE | 2021-05-03 11:51 | Hospitalist Progress Note ---
Date of Service May 03, 2021 Assessment & Plan (1) Cellulitis of left leg: This is a 75yo F with a PMH of HTN, dyslipidemia, lymphedema and other medical problems listed below who presents with pain and redness in LLE x 3 days. LLE cellulitis extending over knee joint with known prosthesis Has significant leukocytosis Redness and warmth extending up to upper part of the medial side of the knee A few skin lesions noted Advised to keep the legs elevated while in bed Has been started on intravenous ceftriaxone No fever and chills and the white count has been normalized Septic arthritis left knee Left knee effusion Associated with severe pain with movement X-ray of the knee did show moderate amount of fluid Likely inflammatory and doubt any septic arthritis Pain has been noted to be worse this morning We will ask for Ortho evaluation and possible arthrocentesis if indicated Status post aspiration and the Gram stain is suggestive of septic arthritis Vancomycin was added yesterday and she will have left knee drainage and stimulant beads implanted today Left knee aspirate is growing group be beta streptococci and is pansensitive Appreciate ID input and recommendation ID wanted to have explant of the prosthesis and continue with antibiotic The patient wanted to have IV antibiotic followed by prolonged oral course of antibiotic to avoid any further surgery Remains stable at this time (2) Lymphedema: History of bilateral lymphedema complicating the leg cellulitis on the left Awaiting doppler of BLE to evaluate for DVT -no evidence of DVT Has been on outpatient hydrochlorothiazide Will try small dose of Lasix Advised the legs to be elevated while in bed Compression stockings will be prescribed on discharge (3) HTN (hypertension): BP on lower end of normal, 104/62. Continue HCTZ, lisinopril and Toprol with hold parameters Blood pressure remains upper side (4) HLD (hyperlipidemia): Continue statin DVT Ppx: SQ heparin Code status: FULL PCP: Paty Dispo: Admitted to med/surg Admission and Anticipated Discharge Date Admission Date: April 29, 2021 Subjective 04/30/2021 The patient was seen and examined in medical telemetry unit She has been complaining of more pain in the left knee joint Denies any fever and/or chills Her redness and swelling of the left lower extremity have diminished 05/01/2021 The patient was seen and examined in medical telemetry unit She is a status post left knee incision and drainage, synovectomy, polyethylene exchange and application of stimulant beads Remains drowsy and complains of pain in the left knee 05/02/2021 The patient was seen and examined in medical telemetry unit She complains to pain in the left knee Denies any other symptoms. No fever and no chills, no abdominal pain nausea no vomiting 05/03/2021 The patient was seen and examined in medical telemetry unit She complains of pain in the left knee but denies any fever and/or chills, no nausea or vomiting She wants to continue with antibiotic and not to go for any further surgery right now Review of Systems Review of Systems: All systems reviewed and are unremarkable except as noted below Musculoskeletal: + joint pain (Left knee swelling with extreme pain with movement) and + swelling (Left leg swelling with redness) Physical Exam Physical Exam: Sitting on a chair with some discomfort in the left knee and left lower extremity Constitutional: well developed, well nourished, + ill appearing and + obese Eyes: PERRL, conjunctivae normal, anicteric sclerae ENMT: external ear and nose normal, oropharynx normal Neck: trachea midline, no thyromegaly Respiratory: no respiratory distress Auscultation: lungs clear to auscultation bilaterally Cardiovascular: Rate/Rhythm: regular rate and regular rhythm Heart Sounds: no murmur Extremities: + edema (Bilateral leg edema. Likely has component of lymphedema. More on the left) Gastrointestinal (Abdomen): Inspection/Auscultation: + abdomen distended; + abnormal bowel sounds Percussion/Palpation: abdomen soft; abdomen nontender Musculoskeletal: Knee: + effusion (Left knee swollen with moderate fluid and extremely painful with movement) and + skin erythema (Minimal erythema of the skin and warmth) Neurologic: Alert, awake and oriented x3 Psychiatric: A+Ox3, euthymic affect Lymphatic: no cervical or axillary lymphadenopathy Results & Data Results & Data ([facility]) Vital Signs (Past 12 Hours) Vital Signs Temp Pulse Resp BP BP Pulse Ox 05/03/21 11:15 36.5 C 74 20 175/75 H 99 05/03/21 07:55 36.4 C L 65 20 135/64 98 05/03/21 00:00 36.5 C 66 18 118/73 98 Laboratory Results Short CBC 05/03/21 Range/Units 08:15 WBC 9.36 (4.8-10.8) K/uL Hgb 12.4 (12.0-16.0) g/dL Hct 36.9 L (37-47) % Plt Count 345 (130-400) K/uL BMP 05/03/21 08:15 Sodium 136 Potassium 4.3 D Chloride 100 Carbon Dioxide 31 BUN 24 H Creatinine 0.98 Glucose 147 H Calcium 8.8 Medications Administered Current Inpatient Medications Acetaminophen (Acetaminophen 325 Mg Tab) 650 mg PO Q4H PRN PRN Reason: pain/fever Stop: 05/29/21 16:10 Last Admin: 04/29/21 18:19 Dose: 650 mg Documented by: Acetaminophen (Acetaminophen 500 Mg Tab) 1,000 mg PO Q8 [facility] Stop: 05/31/21 21:59 Last Admin: 05/03/21 06:22 Dose: 1,000 mg Documented by: Artificial Tears (Artificial Tears) 1 drops OP UD PRN PRN Reason: Dry Eyes Stop: 05/29/21 16:22 Betamethasone Dipropion Augmented (Betamethasone Dip Aug (Diprolene) 0.05% Cr 15 Gm Tube) 1 appln EXT UD PRN PRN Reason: Skin Irritation Stop: 05/29/21 16:20 Bisacodyl (Bisacodyl 10 Mg Supp) 10 mg [place] DAILY PRN PRN Reason: Constipation Stop: 05/31/21 18:24 Clobetasol Propionate (Clobetasol Propionate 0.05% Oint 15 Gm Tube) 1 appln EXT UD PRN PRN Reason: Skin Irritation Stop: 05/29/21 16:21 Docusate Sodium (Docusate Sodium 100 Mg Cap) 100 mg PO BID [facility] Stop: 05/31/21 20:59 Last Admin: 05/03/21 08:37 Dose: 100 mg Documented by: Enoxaparin Sodium (Enoxaparin Inj 40 Mg/0.4 Ml Syr) 40 mg SQ Q24H [facility] Stop: 06/01/21 08:59 Last Admin: 05/03/21 08:37 Dose: 40 mg Documented by: Furosemide (Furosemide 40 Mg Tab) 40 mg PO QAM [facility] Stop: 05/30/21 11:44 Last Admin: 05/03/21 08:37 Dose: 40 mg Documented by: Hydrochlorothiazide (Hydrochlorothiazide 25 Mg Tab) 50 mg PO DAILY [facility] Stop: 05/30/21 08:59 Hydromorphone HCl (Hydromorphone Inj 0.5 Mg/0.5 Ml Syr) 0.5 mg IV Q3H PRN PRN Reason: Pain Stop: 05/13/21 20:23 Last Admin: 05/03/21 10:05 Dose: 0.5 mg Documented by: Ceftriaxone Sodium 2,000 mg/ (Dextrose) 70 mls @ 100 mls/hr IV Q24H [facility]; Protocol Stop: 05/06/21 11:59 Last Admin: 05/03/21 11:39 Dose: 100 mls/hr Documented by: Loratadine (Loratadine 10 Mg Tab) 10 mg PO DAILY PRN PRN Reason: Congestion Stop: 05/29/21 16:10 Magnesium Hydroxide (Magnesium Hydroxide Susp 30 Ml Udc) 30 ml PO Q6H PRN PRN Reason: Constipation Stop: 05/31/21 18:24 Last Admin: 05/02/21 09:45 Dose: 30 ml Documented by: Metoclopramide HCl (Metoclopramide Hcl Inj 5 Mg/Ml 2 Ml Vial) 10 mg IV Q6H PRN PRN Reason: Nausea And Vomiting Stop: 05/31/21 18:24 Metoprolol Succinate (Metoprolol Succ 25mg Ext Rel Tab) 25 mg PO [facility] Stop: 05/30/21 08:59 Last Admin: 05/03/21 08:37 Dose: 25 mg Documented by: Miconazole Nitrate (Miconazole Nitrate Powder 43 Gm) 1 appln EXT PRN PRN PRN Reason: Affected Skin Folds Stop: 06/01/21 05:42 Multivitamins (Multivitamin Tab) 1 tab PO [facility] Stop: 05/30/21 08:59 Last Admin: 05/03/21 08:37 Dose: 1 tab Documented by: Naloxone HCl (Naloxone Hcl 0.4 Mg/1 Ml Vial/Carp) 0.1 mg IV Q5M PRN PRN Reason: Oversedation/Resp Depression Stop: 05/31/21 18:24 Ondansetron HCl (Ondansetron Inj 2 Mg/Ml 2 Ml Vial) 4 mg IV Q6H PRN PRN Reason: Nausea And Vomiting Stop: 05/31/21 18:24 Oxycodone HCl (Oxycodone Hcl Ir 5 Mg Tab (Immediate Release)) 5 mg PO Q4H PRN PRN Reason: Pain Stop: 05/14/21 13:35 Last Admin: 05/03/21 11:06 Dose: 5 mg Documented by: Polyethylene Glycol (Polyethylene (Miralax) 17 Gm Pack) 17 gm PO DAILY PRN PRN Reason: Constipation Stop: 05/29/21 16:10 Sennosides (Senna 8.6 Mg Tab) 17.2 mg PO HS [facility] Stop: 05/31/21 20:59 Last Admin: 05/02/21 22:10 Dose: 17.2 mg Documented by: Simvastatin (Simvastatin 40 Mg Tab) 40 mg PO QPM [facility] Stop: 05/29/21 20:59 Last Admin: 05/02/21 22:10 Dose: 40 mg Documented by: Tramadol HCl (Tramadol Hcl 50 Mg Tablet) 25 - 50 mg PO Q4H PRN PRN Reason: Pain Stop: 05/29/21 20:23 Last Admin: 05/02/21 17:41 Dose: 50 mg Documented by:
[2021-05-03] MEDS: SIMVASTATIN 40 MG TAB PO SCH (21:19)
[2021-05-03] MEDS: SENNA 8.6 MG TAB PO SCH (21:19)
[2021-05-04] MEDS: ACETAMINOPHEN 500 MG TAB PO SCH ×3 (06:08→21:59)
--- NOTE | 2021-05-04 07:48 | Orthopedic Progress Note ---
Date of Service May 04, 2021 Assessment & Plan (1) Infection of total left knee replacement: POD#3 left knee I&D, synovectomy, poly exchange, placement of stimulan beads -PT/OT-quad sets, gait training, gentle ROM -Pain management -DVT prophylaxis-SCDs, TEDs, switched to lovenox -Grams stain with gram + cocci. Intra op gram stain with no organisms, many WBCs. Intra op growing group B strep. Culture from aspirate growing pansensitive Group B strep. -Continue IV antibiotics. ID consult done yesterday, they recommended explant and per patient would not give antibiotic recommendations. Discussed with Dr. Zhu. Patient had an acute onset of symptoms, no issues prior. Treating as an acute TJI with I&D, poly exchange and IV antibiotics. Will need 6 weeks of IV antibiotics and likely oral antibiotics after. If fails then would require explant and placement of antibiotic spacer. Admission and Anticipated Discharge Date Admission Date: April 29, 2021 Supervising Physician Co-Signing Physician Notes Agree with above assessment and plan. Subjective POD#3. Patient with improved pain today. Was having a lot of pain yesterday. Some light headedness when sitting up. No other complaints. Denies chest pain, sob, fever, chills, n/v/d. Review of Systems Review of Systems: All systems reviewed & are unremarkable except as noted in Subjective Physical Exam Physical Exam: Dressing c/d/i, no calf tenderness, toes mobile with good dorsiflexion. n/v status and sensation intact Constitutional: well developed and well nourished; no acute distress Results & Data ([facility]) Vital Signs (Past 12 Hours) Vital Signs Temp Pulse Pulse Resp BP Pulse Ox 05/04/21 07:21 36.6 C 64 16 138/72 98 05/03/21 23:00 36.5 C 65 18 126/73 97 (1) Infection of total left knee replacement Encounter type: subsequent encounter Qualified Code(s): T84.54XD - Infection and inflammatory reaction due to internal left knee prosthesis, subsequent encounter
[2021-05-04 08:30] LABS: Creatinine Clr Calc Pharmacy 56.9 ml/min; Est GFR (African American) 66.6 ml/min; Est GFR (Non-African American) 57.4 ml/min
[2021-05-04] MEDS: oxyCODONE HCL IR 5 MG TAB (IMMEDIATE RELEASE) PO PRN ×2 (08:44→18:29)
[2021-05-04] MEDS: ENOXAPARIN INJ 40 MG/0.4 ML SYR SQ SCH (08:45)
[2021-05-04] MEDS: FUROSEMIDE 40 MG TAB PO SCH (08:46)
[2021-05-04] MEDS: METOPROLOL SUCC 25MG EXT REL TAB PO SCH (08:46)
[2021-05-04] MEDS: MULTIVITAMIN TAB PO SCH (08:46)
[2021-05-04] MEDS: DOCUSATE SODIUM 100 MG CAP PO SCH ×2 (08:47→21:59)
[2021-05-04] MEDS: traMADol HCL 50 MG TABLET PO PRN (11:23)
--- NOTE | 2021-05-04 11:53 | Hospitalist Progress Note ---
Date of Service May 04, 2021 Assessment & Plan (1) Cellulitis of left leg: This is a 75yo F with a PMH of HTN, dyslipidemia, lymphedema and other medical problems listed below who presents with pain and redness in LLE x 3 days. LLE cellulitis extending over knee joint with known prosthesis Has significant leukocytosis Redness and warmth extending up to upper part of the medial side of the knee A few skin lesions noted Advised to keep the legs elevated while in bed Has been started on intravenous ceftriaxone No fever and chills and the white count has been normalized Septic arthritis left knee Left knee effusion Associated with severe pain with movement X-ray of the knee did show moderate amount of fluid Likely inflammatory and doubt any septic arthritis Pain has been noted to be worse this morning We will ask for Ortho evaluation and possible arthrocentesis if indicated Status post aspiration and the Gram stain is suggestive of septic arthritis Vancomycin was added yesterday and she will have left knee drainage and stimulant beads implanted today Left knee aspirate is growing group be beta streptococci and is pansensitive Appreciate ID input and recommendation ID wanted to have explant of the prosthesis and continue with antibiotic The patient wanted to have IV antibiotic followed by prolonged oral course of antibiotic to avoid any further surgery Will need IV antibiotic for 6 weeks followed by oral as per Ortho and ID PT and OT evaluation and will need to go to rehab (2) Lymphedema: History of bilateral lymphedema complicating the leg cellulitis on the left Awaiting doppler of BLE to evaluate for DVT -no evidence of DVT Has been on outpatient hydrochlorothiazide Will try small dose of Lasix Advised the legs to be elevated while in bed Compression stockings will be prescribed on discharge (3) HTN (hypertension): BP on lower end of normal, 104/62. Continue HCTZ, lisinopril and Toprol with hold parameters Blood pressure remains upper side (4) HLD (hyperlipidemia): Continue statin DVT Ppx: SQ heparin Code status: FULL PCP: Paty Dispo: Admitted to med/surg Admission and Anticipated Discharge Date Admission Date: April 29, 2021 Review of Systems Review of Systems: All systems reviewed and are unremarkable except as noted below Musculoskeletal: + joint pain (Left knee swelling with extreme pain with movement) and + swelling (Left leg swelling with redness) Physical Exam Physical Exam: Sitting on a chair with some discomfort in the left knee and left lower extremity Constitutional: well developed, well nourished, + ill appearing and + obese Eyes: PERRL, conjunctivae normal, anicteric sclerae ENMT: external ear and nose normal, oropharynx normal Neck: trachea midline, no thyromegaly Respiratory: no respiratory distress Auscultation: lungs clear to auscultation bilaterally Cardiovascular: Rate/Rhythm: regular rate and regular rhythm Heart Sounds: no murmur Extremities: + edema (Bilateral leg edema. Likely has component of lymphedema. More on the left) Gastrointestinal (Abdomen): Inspection/Auscultation: + abdomen distended; + abnormal bowel sounds Percussion/Palpation: abdomen soft; abdomen nontender Musculoskeletal: Knee: + effusion (Left knee swollen with moderate fluid and extremely painful with movement) and + skin erythema (Minimal erythema of the skin and warmth) Psychiatric: A+Ox3, euthymic affect Lymphatic: no cervical or axillary lymphadenopathy Results & Data Results & Data ([facility]) Vital Signs (Past 12 Hours) Vital Signs Temp Pulse Resp BP Pulse Ox 05/04/21 11:34 36.6 C 68 18 130/68 96 05/04/21 07:21 36.6 C 64 16 138/72 98 Laboratory Results [facility] 05/04/21 07:22 Creatinine 0.96 Medications Administered Current Inpatient Medications Acetaminophen (Acetaminophen 325 Mg Tab) 650 mg PO Q4H PRN PRN Reason: pain/fever Stop: 05/29/21 16:10 Last Admin: 04/29/21 18:19 Dose: 650 mg Documented by: Acetaminophen (Acetaminophen 500 Mg Tab) 1,000 mg PO Q8 [facility] Stop: 05/31/21 21:59 Last Admin: 05/04/21 06:08 Dose: 1,000 mg Documented by: Artificial Tears (Artificial Tears) 1 drops OP UD PRN PRN Reason: Dry Eyes Stop: 05/29/21 16:22 Betamethasone Dipropion Augmented (Betamethasone Dip Aug (Diprolene) 0.05% Cr 15 Gm Tube) 1 appln EXT UD PRN PRN Reason: Skin Irritation Stop: 05/29/21 16:20 Bisacodyl (Bisacodyl 10 Mg Supp) 10 mg [place] DAILY PRN PRN Reason: Constipation Stop: 05/31/21 18:24 Last Admin: 05/03/21 21:21 Dose: 10 mg Documented by: Clobetasol Propionate (Clobetasol Propionate 0.05% Oint 15 Gm Tube) 1 appln EXT UD PRN PRN Reason: Skin Irritation Stop: 05/29/21 16:21 Docusate Sodium (Docusate Sodium 100 Mg Cap) 100 mg PO BID [facility] Stop: 05/31/21 20:59 Last Admin: 05/04/21 08:47 Dose: 100 mg Documented by: Enoxaparin Sodium (Enoxaparin Inj 40 Mg/0.4 Ml Syr) 40 mg SQ Q24H [facility] Stop: 06/01/21 08:59 Last Admin: 05/04/21 08:45 Dose: 40 mg Documented by: Furosemide (Furosemide 40 Mg Tab) 40 mg PO QAM [facility] Stop: 05/30/21 11:44 Last Admin: 05/04/21 08:46 Dose: 40 mg Documented by: Hydrochlorothiazide (Hydrochlorothiazide 25 Mg Tab) 50 mg PO DAILY [facility] Stop: 05/30/21 08:59 Hydromorphone HCl (Hydromorphone Inj 0.5 Mg/0.5 Ml Syr) 0.5 mg IV Q3H PRN PRN Reason: Pain Stop: 05/13/21 20:23 Last Admin: 05/03/21 10:05 Dose: 0.5 mg Documented by: Ceftriaxone Sodium 2,000 mg/ (Dextrose) 70 mls @ 100 mls/hr IV Q24H [facility]; Protocol Stop: 05/06/21 11:59 Last Infusion: 05/03/21 12:21 Dose: Infused Documented by: Loratadine (Loratadine 10 Mg Tab) 10 mg PO DAILY PRN PRN Reason: Congestion Stop: 05/29/21 16:10 Magnesium Hydroxide (Magnesium Hydroxide Susp 30 Ml Udc) 30 ml PO Q6H PRN PRN Reason: Constipation Stop: 05/31/21 18:24 Last Admin: 05/02/21 09:45 Dose: 30 ml Documented by: Metoclopramide HCl (Metoclopramide Hcl Inj 5 Mg/Ml 2 Ml Vial) 10 mg IV Q6H PRN PRN Reason: Nausea And Vomiting Stop: 05/31/21 18:24 Metoprolol Succinate (Metoprolol Succ 25mg Ext Rel Tab) 25 mg PO QAM [facility] Stop: 05/30/21 08:59 Last Admin: 05/04/21 08:46 Dose: 25 mg Documented by: Miconazole Nitrate (Miconazole Nitrate Powder 43 Gm) 1 appln EXT PRN PRN PRN Reason: Affected Skin Folds Stop: 06/01/21 05:42 Multivitamins (Multivitamin Tab) 1 tab PO QAM [facility] Stop: 05/30/21 08:59 Last Admin: 05/04/21 08:46 Dose: 1 tab Documented by: Naloxone HCl (Naloxone Hcl 0.4 Mg/1 Ml Vial/Carp) 0.1 mg IV Q5M PRN PRN Reason: Oversedation/Resp Depression Stop: 05/31/21 18:24 Ondansetron HCl (Ondansetron Inj 2 Mg/Ml 2 Ml Vial) 4 mg IV Q6H PRN PRN Reason: Nausea And Vomiting Stop: 05/31/21 18:24 Oxycodone HCl (Oxycodone Hcl Ir 5 Mg Tab (Immediate Release)) 5 mg PO Q4H PRN PRN Reason: Pain Stop: 05/14/21 13:35 Last Admin: 05/04/21 08:44 Dose: 5 mg Documented by: Polyethylene Glycol (Polyethylene (Miralax) 17 Gm Pack) 17 gm PO DAILY PRN PRN Reason: Constipation Stop: 05/29/21 16:10 Sennosides (Senna 8.6 Mg Tab) 17.2 mg PO HS [facility] Stop: 05/31/21 20:59 Last Admin: 05/03/21 21:19 Dose: 17.2 mg Documented by: Simvastatin (Simvastatin 40 Mg Tab) 40 mg PO QPM [facility] Stop: 05/29/21 20:59 Last Admin: 05/03/21 21:19 Dose: 40 mg Documented by: Tramadol HCl (Tramadol Hcl 50 Mg Tablet) 25 - 50 mg PO Q4H PRN PRN Reason: Pain Stop: 05/29/21 20:23 Last Admin: 05/04/21 11:23 Dose: 50 mg Documented by:
[2021-05-04] MEDS: cefTRIAXone SODIUM 2,000 MG in DEXTROSE 5% 50 ML IV SCH (12:37)
[2021-05-04] MEDS: SIMVASTATIN 40 MG TAB PO SCH (21:58)
[2021-05-04] MEDS: SENNA 8.6 MG TAB PO SCH (21:59)
[2021-05-05] MEDS: traMADol HCL 50 MG TABLET PO PRN ×3 (02:03→23:04)
[2021-05-05] MEDS: ACETAMINOPHEN 500 MG TAB PO SCH ×3 (05:12→23:00)
[2021-05-05] MEDS: METOPROLOL SUCC 25MG EXT REL TAB PO SCH (08:29)
[2021-05-05] MEDS: MULTIVITAMIN TAB PO SCH (08:30)
[2021-05-05] MEDS: FUROSEMIDE 40 MG TAB PO SCH ×2 (08:30→08:36)
[2021-05-05] MEDS: DOCUSATE SODIUM 100 MG CAP PO SCH ×2 (08:30→20:51)
[2021-05-05] MEDS: ENOXAPARIN INJ 40 MG/0.4 ML SYR SQ SCH (08:37)
[2021-05-05] MEDS: oxyCODONE HCL IR 5 MG TAB (IMMEDIATE RELEASE) PO PRN ×2 (11:03→20:31)
[2021-05-05] MEDS: cefTRIAXone SODIUM 2,000 MG in DEXTROSE 5% 50 ML IV SCH (12:35)
--- NOTE | 2021-05-05 16:24 | Orthopedic Progress Note ---
Date of Service May 05, 2021 Assessment & Plan (1) Infection of total left knee replacement: POD#4 left knee I&D, synovectomy, poly exchange, placement of stimulan beads -PT/OT-quad sets, gait training, gentle ROM -Pain management -DVT prophylaxis-SCDs, TEDs, switched to lovenox -Grams stain with gram + cocci. Intra op gram stain with no organisms, many WBCs. Intra op growing group B strep. Culture from aspirate growing pansensitive Group B strep. -Continue IV antibiotics. ID recomendations appreciated. Will need 6 weeks of IV antibiotics followed by PO abx. -trend inflammatory labs Stable from ortho standpoint, no additional surgery at this time Admission and Anticipated Discharge Date Admission Date: April 29, 2021 Subjective Post Operative Progress Note Patient seen sitting in chair at bedside, comfortable, denies complaints, pain well controlled, no acute issues. Denies F/C/N/V/SOB/CP. Review of Systems Review of Systems: All systems reviewed & are unremarkable except as noted in HPI & below Constitutional: as per Subjective / HPI Physical Exam Physical Exam: LLE NVSI +EHL/FHL/TA/GS SILT grossly, +2 DP pulse, compartments soft NT, dressing cdi. Constitutional: WD/WN, vitals as above Results & Data ([facility] [place]) Vital Signs (Past 12 Hours) Vital Signs Temp Pulse Resp BP Pulse Ox 05/05/21 08:00 36.6 C 69 16 137/72 98 (1) Infection of total left knee replacement Encounter type: subsequent encounter Qualified Code(s): T84.54XD - Infection and inflammatory reaction due to internal left knee prosthesis, subsequent encounter
--- NOTE | 2021-05-05 16:27 | Hospitalist Progress Note ---
Date of Service May 05, 2021 Assessment & Plan (1) Cellulitis of left leg: This is a 75yo F with a PMH of HTN, dyslipidemia, lymphedema and other medical problems listed below who presents with pain and redness in LLE x 3 days. LLE cellulitis extending over knee joint with known prosthesis Has significant leukocytosis Redness and warmth extending up to upper part of the medial side of the knee A few skin lesions noted Advised to keep the legs elevated while in bed Has been started on intravenous ceftriaxone No fever and chills and the white count has been normalized Septic arthritis left knee Left knee effusion Associated with severe pain with movement X-ray of the knee did show moderate amount of fluid Likely inflammatory and doubt any septic arthritis Pain has been noted to be worse this morning We will ask for Ortho evaluation and possible arthrocentesis if indicated Status post aspiration and the Gram stain is suggestive of septic arthritis Vancomycin was added yesterday and she will have left knee drainage and stimulant beads implanted today Left knee aspirate is growing group be beta streptococci and is pansensitive Appreciate ID input and recommendation ID wanted to have explant of the prosthesis and continue with antibiotic The patient wanted to have IV antibiotic followed by prolonged oral course of antibiotic to avoid any further surgery Will need IV antibiotic for 6 weeks followed by oral as per Ortho and ID PT and OT evaluation and will need to go to rehab Will need ceftriaxone 2 g IV daily plus rifampicin 300 mg twice daily orally for 6 weeks in total and then amoxicillin 500 mg 3 times daily and rifampin 300 mg twice daily for 6 more week (2) Lymphedema: History of bilateral lymphedema complicating the leg cellulitis on the left Awaiting doppler of BLE to evaluate for DVT -no evidence of DVT Has been on outpatient hydrochlorothiazide Will try small dose of Lasix Advised the legs to be elevated while in bed Compression stockings will be prescribed on discharge (3) HTN (hypertension): BP on lower end of normal, 104/62. Continue HCTZ, lisinopril and Toprol with hold parameters Blood pressure remains upper side (4) HLD (hyperlipidemia): Continue statin DVT Ppx: SQ heparin Code status: FULL PCP: Paty Dispo: Admitted to med/surg Awaiting approval for rehab Admission and Anticipated Discharge Date Admission Date: April 29, 2021 Subjective 04/30/2021 The patient was seen and examined in medical telemetry unit She has been complaining of more pain in the left knee joint Denies any fever and/or chills Her redness and swelling of the left lower extremity have diminished 05/01/2021 The patient was seen and examined in medical telemetry unit She is a status post left knee incision and drainage, synovectomy, polyethylene exchange and application of stimulant beads Remains drowsy and complains of pain in the left knee 05/02/2021 The patient was seen and examined in medical telemetry unit She complains to pain in the left knee Denies any other symptoms. No fever and no chills, no abdominal pain nausea no vomiting 05/03/2021 The patient was seen and examined in medical telemetry unit She complains of pain in the left knee but denies any fever and/or chills, no nausea or vomiting She wants to continue with antibiotic and not to go for any further surgery right now 05/05/2021 The patient was seen and examined on 05/04/2021 The patient was seen and examined in medical floor today Remains stable with pain in the left knee and left leg Denies any other symptoms Review of Systems Review of Systems: All systems reviewed and are unremarkable except as noted below Musculoskeletal: + joint pain (Left knee swelling with extreme pain with movement) and + swelling (Left leg swelling with redness) Physical Exam Physical Exam: Sitting on a chair with some discomfort in the left knee and left lower extremity Constitutional: well developed, well nourished, + ill appearing and + obese Eyes: PERRL, conjunctivae normal, anicteric sclerae ENMT: external ear and nose normal, oropharynx normal Neck: trachea midline, no thyromegaly Respiratory: no respiratory distress Auscultation: lungs clear to auscultation bilaterally Cardiovascular: Rate/Rhythm: regular rate and regular rhythm Heart Sounds: no murmur Extremities: + edema (Bilateral leg edema. Likely has component of lymphedema. More on the left) Gastrointestinal (Abdomen): Inspection/Auscultation: + abdomen distended; + abnormal bowel sounds Percussion/Palpation: abdomen soft; abdomen nontender Musculoskeletal: Knee: + effusion (Left knee swollen with moderate fluid and extremely painful with movement) and + skin erythema (Minimal erythema of the skin and warmth) Extreme pain with movement of the left lower extremity Neurologic: Alert, awake and oriented x3 Psychiatric: A+Ox3, euthymic affect Lymphatic: no cervical or axillary lymphadenopathy Results & Data Results & Data ([facility]) Vital Signs (Past 12 Hours) Vital Signs Temp Pulse Resp BP Pulse Ox 05/05/21 08:00 36.6 C 69 16 137/72 98 Medications Administered Current Inpatient Medications Acetaminophen (Acetaminophen 325 Mg Tab) 650 mg PO Q4H PRN PRN Reason: pain/fever Stop: 05/29/21 16:10 Last Admin: 04/29/21 18:19 Dose: 650 mg Documented by: Acetaminophen (Acetaminophen 500 Mg Tab) 1,000 mg PO Q8 [facility] Stop: 05/31/21 21:59 Last Admin: 05/05/21 14:12 Dose: 1,000 mg Documented by: Artificial Tears (Artificial Tears) 1 drops OP UD PRN PRN Reason: Dry Eyes Stop: 05/29/21 16:22 Betamethasone Dipropion Augmented (Betamethasone Dip Aug (Diprolene) 0.05% Cr 15 Gm Tube) 1 appln EXT UD PRN PRN Reason: Skin Irritation Stop: 05/29/21 16:20 Bisacodyl (Bisacodyl 10 Mg Supp) 10 mg [place] DAILY PRN PRN Reason: Constipation Stop: 05/31/21 18:24 Last Admin: 05/03/21 21:21 Dose: 10 mg Documented by: Clobetasol Propionate (Clobetasol Propionate 0.05% Oint 15 Gm Tube) 1 appln EXT UD PRN PRN Reason: Skin Irritation Stop: 05/29/21 16:21 Docusate Sodium (Docusate Sodium 100 Mg Cap) 100 mg PO BID [facility] Stop: 05/31/21 20:59 Last Admin: 05/05/21 08:30 Dose: 100 mg Documented by: Enoxaparin Sodium (Enoxaparin Inj 40 Mg/0.4 Ml Syr) 40 mg SQ Q24H [facility] Stop: 06/01/21 08:59 Last Admin: 05/05/21 08:37 Dose: 40 mg Documented by: Heparin Sodium (Beef Lung) (Heparin 10 Unit/Ml 5 Ml Flush) 5 ml FLUSH PRN PRN PRN Reason: Flush Stop: 06/04/21 14:25 Hydrochlorothiazide (Hydrochlorothiazide 25 Mg Tab) 50 mg PO DAILY [facility] Stop: 05/30/21 08:59 Hydromorphone HCl (Hydromorphone Inj 0.5 Mg/0.5 Ml Syr) 0.5 mg IV Q3H PRN PRN Reason: Pain Stop: 05/13/21 20:23 Last Admin: 05/03/21 10:05 Dose: 0.5 mg Documented by: Ceftriaxone Sodium 2,000 mg/ (Dextrose) 70 mls @ 100 mls/hr IV Q24H [facility]; Protocol Stop: 05/06/21 11:59 Last Infusion: 05/05/21 13:21 Dose: Infused Documented by: Loratadine (Loratadine 10 Mg Tab) 10 mg PO DAILY PRN PRN Reason: Congestion Stop: 05/29/21 16:10 Magnesium Hydroxide (Magnesium Hydroxide Susp 30 Ml Udc) 30 ml PO Q6H PRN PRN Reason: Constipation Stop: 05/31/21 18:24 Last Admin: 05/02/21 09:45 Dose: 30 ml Documented by: Metoclopramide HCl (Metoclopramide Hcl Inj 5 Mg/Ml 2 Ml Vial) 10 mg IV Q6H PRN PRN Reason: Nausea And Vomiting Stop: 05/31/21 18:24 Metoprolol Succinate (Metoprolol Succ 25mg Ext Rel Tab) 25 mg PO [facility] Stop: 05/30/21 08:59 Last Admin: 05/05/21 08:29 Dose: 25 mg Documented by: Miconazole Nitrate (Miconazole Nitrate Powder 43 Gm) 1 appln EXT PRN PRN PRN Reason: Affected Skin Folds Stop: 06/01/21 05:42 Multivitamins (Multivitamin Tab) 1 tab PO [facility] Stop: 05/30/21 08:59 Last Admin: 05/05/21 08:30 Dose: 1 tab Documented by: Naloxone HCl (Naloxone Hcl 0.4 Mg/1 Ml Vial/Carp) 0.1 mg IV Q5M PRN PRN Reason: Oversedation/Resp Depression Stop: 05/31/21 18:24 Ondansetron HCl (Ondansetron Inj 2 Mg/Ml 2 Ml Vial) 4 mg IV Q6H PRN PRN Reason: Nausea And Vomiting Stop: 05/31/21 18:24 Oxycodone HCl (Oxycodone Hcl Ir 5 Mg Tab (Immediate Release)) 5 - 10 mg PO Q4H PRN PRN Reason: Pain Stop: 05/19/21 10:59 Last Admin: 05/05/21 11:03 Dose: 10 mg Documented by: Polyethylene Glycol (Polyethylene (Miralax) 17 Gm Pack) 17 gm PO DAILY PRN PRN Reason: Constipation Stop: 05/29/21 16:10 Sennosides (Senna 8.6 Mg Tab) 17.2 mg PO HS [facility] Stop: 05/31/21 20:59 Last Admin: 05/04/21 21:59 Dose: Not Given Documented by: Simvastatin (Simvastatin 40 Mg Tab) 40 mg PO QPM [facility] Stop: 05/29/21 20:59 Last Admin: 05/04/21 21:58 Dose: 40 mg Documented by: Tramadol HCl (Tramadol Hcl 50 Mg Tablet) 25 - 50 mg PO Q4H PRN PRN Reason: Pain Stop: 05/29/21 20:23 Last Admin: 05/05/21 08:28 Dose: 50 mg Documented by:
[2021-05-05] MEDS: SENNA 8.6 MG TAB PO SCH (20:31)
[2021-05-05] MEDS: SIMVASTATIN 40 MG TAB PO SCH (20:32)
[2021-05-05] MEDS: rifAMPin 300 MG CAPSULE PO SCH (20:50)
[2021-05-06] MEDS: ACETAMINOPHEN 500 MG TAB PO SCH ×3 (06:12→22:02)
[2021-05-06] MEDS: traMADol HCL 50 MG TABLET PO PRN ×2 (06:12→18:38)
[2021-05-06 06:40] LABS: Hematocrit (blood only) 34.6 % (37-47); Hemoglobin 11.3 g/dL (12.0-16.0); Mean Corpuscular Hemoglobin 29.6 pg (25-34); Mean Corpuscular Hgb Conc 32.7 g/dL (32-36); Mean Corpuscular Volume 90.6 fL (80-100); Mean Platelet Volume 8.9 fL (7.4-10.4); Platelet Count 353 K/uL (130-400); Red Blood Count 3.82 M/uL (4.2-5.4)
[2021-05-06 06:58] LABS: Basophils # (auto) 0.03 K/uL (0-0.2); Basophils % (auto) 0.3 %; Eosinophils # (auto) 0.48 K/uL (0-0.5); Eosinophils % (auto) 5.1 %; Immature Granulocytes # (auto) 0.55 K/uL (0.00-0.02); Immature Granulocytes % (auto) 5.8 %; Lymphocytes # (auto) 2.11 K/uL (1.2-3.4); Lymphocytes % (auto) 22.2 %; Monocytes # (auto) 0.94 K/uL (0.11-0.59); Monocytes % (auto) 9.9 %; Neutrophils # (auto) 5.39 K/uL (1.4-6.5); Neutrophils % (auto) 56.7 %; Polychromasia 1+
[2021-05-06 07:51] LABS: Albumin Globulin Ratio 0.6 (0.9-2); Albumin Level 2.4 gm/dl (3.4-5.0); Bilirubin,Total 0.9 mg/dl (0.2-1); Creatinine Clr Calc Pharmacy 85.4 ml/min; Est GFR (African American) 100.5 ml/min; Est GFR (Non-African American) 86.7 ml/min; Globulin 3.8 gm/dl (2.5-4.0); Total Protein 6.2 gm/dl (6.4-8.2)
[2021-05-06] MEDS: oxyCODONE HCL IR 5 MG TAB (IMMEDIATE RELEASE) PO PRN ×3 (09:42→20:22)
[2021-05-06] MEDS: MULTIVITAMIN TAB PO SCH (09:42)
[2021-05-06] MEDS: METOPROLOL SUCC 25MG EXT REL TAB PO SCH (09:43)
[2021-05-06] MEDS: ENOXAPARIN INJ 40 MG/0.4 ML SYR SQ SCH (09:43)
[2021-05-06] MEDS: rifAMPin 300 MG CAPSULE PO SCH ×2 (09:43→20:23)
[2021-05-06] MEDS: DOCUSATE SODIUM 100 MG CAP PO SCH ×2 (09:45→20:26)
[2021-05-06] MEDS: DICLOFENAC SOD 1% GEL 100 GM TUBE EXT SCH ×2 (13:36→20:23)
--- NOTE | 2021-05-06 14:33 | Orthopedic Progress Note ---
Date of Service May 06, 2021 Assessment & Plan (1) Infection of total left knee replacement: POD#5 left knee I&D, synovectomy, poly exchange, placement of stimulan beads -PT/OT-quad sets, gait training, gentle ROM -Pain management -DVT prophylaxis-SCDs, TEDs, switched to lovenox -Grams stain with gram + cocci. Intra op gram stain with no organisms, many WBCs. Intra op growing group B strep. Culture from aspirate growing pansensitive Group B strep. -Continue IV antibiotics. ID recomendations appreciated. Will need 6 weeks of IV antibiotics followed by PO abx. -trend inflammatory labs Stable from ortho standpoint, no additional surgery at this time Admission and Anticipated Discharge Date Admission Date: April 29, 2021 Subjective Postop day 5 Patient sitting in her chair at the bedside. States her knee is hurting her a little bit today but otherwise she has no complaints. Denies shortness of breath, chest pain, lightheadedness. She states that they are working on getting her into a rehab facility. Physical Exam Physical Exam: Nicole dressing is clean, dry, and intact. Calves are soft nontender. Neurovascular intact. Toes are mobile. She has no erythema around the knee. She has mild swelling consistent with surgery. Results & Data ([facility]) Vital Signs (Past 12 Hours) Vital Signs Temp Pulse Resp BP Pulse Ox 05/06/21 07:36 36.8 C 79 16 140/59 L 97 (1) Infection of total left knee replacement Encounter type: subsequent encounter Qualified Code(s): T84.54XD - Infection and inflammatory reaction due to internal left knee prosthesis, subsequent encounter
--- NOTE | 2021-05-06 18:22 | Hospitalist Progress Note ---
Date of Service May 06, 2021 Assessment & Plan (1) Cellulitis of left leg: This is a 75yo F with a PMH of HTN, dyslipidemia, lymphedema and other medical problems listed below who presents with pain and redness in LLE x 3 days. LLE cellulitis extending over knee joint with known prosthesis Has significant leukocytosis Redness and warmth extending up to upper part of the medial side of the knee A few skin lesions noted Advised to keep the legs elevated while in bed Has been started on intravenous ceftriaxone No fever and chills and the white count has been normalized Septic arthritis left knee Left knee effusion Associated with severe pain with movement X-ray of the knee did show moderate amount of fluid Likely inflammatory and doubt any septic arthritis Pain has been noted to be worse this morning We will ask for Ortho evaluation and possible arthrocentesis if indicated Status post aspiration and the Gram stain is suggestive of septic arthritis Vancomycin was added yesterday and she will have left knee drainage and stimulant beads implanted today Left knee aspirate is growing group be beta streptococci and is pansensitive Appreciate ID input and recommendation ID wanted to have explant of the prosthesis and continue with antibiotic The patient wanted to have IV antibiotic followed by prolonged oral course of antibiotic to avoid any further surgery Will need IV antibiotic for 6 weeks followed by oral as per Ortho and ID PT and OT evaluation and will need to go to rehab Will need ceftriaxone 2 g IV daily plus rifampicin 300 mg twice daily orally for 6 weeks in total and then amoxicillin 500 mg 3 times daily and rifampin 300 mg twice daily for 6 more week Awaiting placement (2) Lymphedema: History of bilateral lymphedema complicating the leg cellulitis on the left Awaiting doppler of BLE to evaluate for DVT -no evidence of DVT Has been on outpatient hydrochlorothiazide Will try small dose of Lasix Advised the legs to be elevated while in bed Compression stockings will be prescribed on discharge (3) HTN (hypertension): BP on lower end of normal, 104/62. Continue HCTZ, lisinopril and Toprol with hold parameters Blood pressure remains upper side (4) HLD (hyperlipidemia): Continue statin DVT Ppx: SQ Lovenox Code status: FULL PCP: Paty Dispo: Admitted to med/surg Awaiting approval for rehab Admission and Anticipated Discharge Date Admission Date: April 29, 2021 Subjective 04/30/2021 The patient was seen and examined in medical telemetry unit She has been complaining of more pain in the left knee joint Denies any fever and/or chills Her redness and swelling of the left lower extremity have diminished 05/01/2021 The patient was seen and examined in medical telemetry unit She is a status post left knee incision and drainage, synovectomy, polyethylene exchange and application of stimulant beads Remains drowsy and complains of pain in the left knee 05/02/2021 The patient was seen and examined in medical telemetry unit She complains to pain in the left knee Denies any other symptoms. No fever and no chills, no abdominal pain nausea no vomiting 05/03/2021 The patient was seen and examined in medical telemetry unit She complains of pain in the left knee but denies any fever and/or chills, no nausea or vomiting She wants to continue with antibiotic and not to go for any further surgery right now 05/05/2021 The patient was seen and examined on 05/04/2021 The patient was seen and examined in medical floor today Remains stable with pain in the left knee and left leg Denies any other symptoms 05/06/2021 The patient was seen and examined in medical floor She has pain in the left knee and back but denies any other symptoms No fever and/or chills Leg swelling is minimally improved Review of Systems Review of Systems: All systems reviewed and are unremarkable except as noted below Musculoskeletal: + joint pain (Left knee swelling with extreme pain with movement) and + swelling (Left leg swelling with redness) Physical Exam Physical Exam: Sitting on a chair with some discomfort in the left knee and left lower extremity Constitutional: well developed, well nourished, + ill appearing and + obese Eyes: PERRL, conjunctivae normal, anicteric sclerae ENMT: external ear and nose normal, oropharynx normal Neck: trachea midline, no thyromegaly Respiratory: no respiratory distress Auscultation: lungs clear to auscultation bilaterally Cardiovascular: Rate/Rhythm: regular rate and regular rhythm Heart Sounds: no murmur Extremities: + edema (Bilateral leg edema. Likely has component of lymphedema. More on the left) Gastrointestinal (Abdomen): Inspection/Auscultation: + abdomen distended; + abnormal bowel sounds Percussion/Palpation: abdomen soft; abdomen nontender Musculoskeletal: Knee: + effusion (Left knee swollen with moderate fluid and extremely painful with movement) and + skin erythema (Minimal erythema of the skin and warmth) Neurologic: Alert, awake and oriented x3, generally weak Psychiatric: A+Ox3, euthymic affect Lymphatic: no cervical or axillary lymphadenopathy Results & Data Results & Data ([facility]) Vital Signs (Past 12 Hours) Vital Signs Temp Pulse Resp BP Pulse Ox 05/06/21 14:40 36.5 C 77 16 153/75 H 99 05/06/21 07:36 36.8 C 79 16 140/59 L 97
[2021-05-06] MEDS: SIMVASTATIN 40 MG TAB PO SCH (20:23)
[2021-05-06] MEDS: SENNA 8.6 MG TAB PO SCH (20:23)
[2021-05-07] MEDS: cefTRIAXone SODIUM 2,000 MG in DEXTROSE 5% 50 ML IV SCH ×2 (00:03→09:41)
[2021-05-07] MEDS: ACETAMINOPHEN 325 MG TAB PO PRN (05:54)
[2021-05-07] MEDS: ACETAMINOPHEN 500 MG TAB PO SCH ×2 (05:57→12:34)
[2021-05-07 06:33] LABS: Creatinine Clr Calc Pharmacy 71.9 ml/min; Est GFR (African American) 88.3 ml/min; Est GFR (Non-African American) 76.2 ml/min
--- NOTE | 2021-05-07 07:17 | Orthopedic Progress Note ---
Date of Service May 07, 2021 Assessment & Plan (1) Infection of total left knee replacement: POD#6 left knee I&D, synovectomy, poly exchange, placement of stimulan beads -PT/OT-quad sets, gait training, gentle ROM -Pain management -DVT prophylaxis-SCDs, TEDs, switched to lovenox -Grams stain with gram + cocci. Intra op gram stain with no organisms, many WBCs. Intra op growing group B strep. Culture from aspirate growing pansensitive Group B strep. -Continue IV antibiotics. ID recomendations appreciated. Will need 6 weeks of IV antibiotics followed by PO abx. -trend inflammatory labs Stable from ortho standpoint, no additional surgery at this time. Ortho will sign off. F/u with Dr. Zhu or his PA 12-14 days post operatively. Admission and Anticipated Discharge Date Admission Date: April 29, 2021 Subjective POD#6 left knee. Improving. Still with pain but better than it was. No other complaints. PICC line placed. Review of Systems Review of Systems: All systems reviewed & are unremarkable except as noted in Subjective Physical Exam Physical Exam: PHILLIP Dressing c/d/i, no calf tenderness, toes mobile with good dorsiflexion. n/v status and sensation intact Constitutional: well developed and well nourished; no acute distress Results & Data ([facility]) Vital Signs (Past 12 Hours) Vital Signs Temp Pulse Resp BP Pulse Ox 05/07/21 06:11 36.8 C 74 20 167/78 H 94 05/07/21 00:02 36.7 C 70 16 158/77 H 97 (1) Infection of total left knee replacement Encounter type: subsequent encounter Qualified Code(s): T84.54XD - Infection and inflammatory reaction due to internal left knee prosthesis, subsequent encounter
[2021-05-07] MEDS: oxyCODONE HCL IR 5 MG TAB (IMMEDIATE RELEASE) PO PRN (09:38)
[2021-05-07] MEDS: DICLOFENAC SOD 1% GEL 100 GM TUBE EXT SCH ×2 (09:41→12:33)
[2021-05-07] MEDS: ENOXAPARIN INJ 40 MG/0.4 ML SYR SQ SCH (09:42)
[2021-05-07] MEDS: MULTIVITAMIN TAB PO SCH (09:42)
[2021-05-07] MEDS: DOCUSATE SODIUM 100 MG CAP PO SCH (09:42)
[2021-05-07] MEDS: rifAMPin 300 MG CAPSULE PO SCH (09:42)
[2021-05-07] MEDS: METOPROLOL SUCC 25MG EXT REL TAB PO SCH (09:42)
--- NOTE | 2021-05-07 10:16 | Discharge Summary ---
Date of Service May 07, 2021 Admission HPI Per Admitting Provider This is a 75yo F with a PMH of HTN, dyslipidemia, lymphedema and other medical problems listed below who presents with pain and redness in LLE x 3 days. Began to feel nauseated over the weekend with intermittent vomiting. Also endorses subjective fever and chills. Yesterday, noted pain and warmth in LLE. Leg is move painful with walking and to touch. Had bout of cellulitis last year that improved with course of IV abx. Has had tylenol and toradol while in the ER with some improvement. Has underlying lymphedema and states LLE is more edematous than baseline. Pain is worse around and behind L knee. History of L TKA. Denies lightheadedness, headache, congestion, nausea, abdominal pain, dysuria, diarrhea or constipation. Admission Exam Per Admitting Provider General Appearance: WD/WN, vitals as above, NAD, sitting up in bed, pleasant, obese Head: normocephalic, atraumatic Eyes: normal inspection, PERRL, conjunctivae normal, anicteric sclerae ENT: external ear and nose normal, oropharynx normal Neck: normal visual inspection, trachea midline, no thyromegaly Respiratory: normal respiratory effort, lungs clear to auscultation, no wheeze, rales, rhonchi. No accessory muscle use Cardiovascular: regular rate, rhythm, no murmur, normal peripheral pulses, no BLE edema. Vessels: no JVD Chest: normal inspection of chest Abdomen/GI: normal bowel sounds, soft, nontender, no hepatosplenomegaly Extremities/Musculoskeletal: BLE with lymphedema, L>R. L knee and distal thigh with erythematous streaking and warmth and painful to touch. Lower leg with erythematous banding but normal temperature. No drainage. No cyanosis or clubbing, extremities motor strength 5/5 Neurologic: PERRL, EOMI, accommodation nl, no face palsy, no dysarthria, CN's II-XI intact bilaterally and moves all extremities Psychiatric: A+Ox3, euthymic affect Skin: no rashes, normal color, warm/dry Principal Diagnosis (1) Cellulitis of left leg: Septic arthritis left knee, Left knee effusion (2) Lymphedema: (3) HTN (hypertension): (4) HLD (hyperlipidemia): Discharge Exam ROS-No Headache, No Visual Changes, No Nausea, No Vomiting, No Fever, No Chills, No Neck Pain or Stiffness, No Chest Pain, No Palpitations, No SOB, No ANDUJAR, No Cough, No Sputum, No Wheezing, No Abdominal Pain, No Diarrhea, No Hematemesis, No Hemoptysis, No Unexpected Weight Loss, No Flank pain, No Melena, No Hematochezia, No Frequency, No Urgency, No Burning, No Hematuria, No Rashes, No Diaphoresis. Appetite is Normal, +L Knee Pain Physical Exam Gen-AAO x 3, NAD, Afebrile, Obese Head-NCAT, EOMI, PERRLA, Anicteric Sclera, No Posterior Pharyngeal Erythema Neck-Supple, No JVD, No Thyromegaly, No Masses, No LAD, No Bruits Lungs-Clear to Auscultation Bilaterally, No Rales, No Rhonchi, No Wheezing, No Crepitus Chest-No S4, +S1, +S2, No S3, No Murmurs, No Rubs, No Gallops, No Ectopy Abdomen-Soft, Bowel Sounds Present, Non Tender, Non Distended, No Hepatomegaly, No Splenomegaly, No Palpable Masses, No Rebound, No Rigidity, No Guarding Musculoskeletal-No CVAT Extremities-No Cyanosis, No Clubbing, L Knee edema, Incision Nuero-Cranial Nerves II-XII grossly intact, Motor WNL, DTRs WNL, Strength WNL, Non Focal Psych-Normal Mood Discharge Data Allergies Allergy/AdvReac Type Severity Reaction Status Date / Time cephalexin Allergy Intermediate ITCHY RASH Verified 04/29/21 13:50 Consultations 04/29/21 13:12 ED Decision to Admit Stat 04/30/21 09:21 Consult Orthopedic Surgery Routine 04/30/21 16:59 Consult Infectious Diseases Routine Procedures Performed Operation Date: 05/01/21 07:00 Actual Procedures p Left Knee Incision and Drainage Knee, Synovectomy (Left) - Nnamdi Zhu MD s Polyethylene Exchange, Application of Stimulan Beads - Nnamdi Zhu MD Ordered Studies 04/29/21 11:14 US venous doppler LE LT Stat Current Diagnoses Hyperlipidemia, unspecified (04/29/21) Essential (primary) hypertension (04/29/21) Lymphedema, not elsewhere classified (04/29/21) Cellulitis of left lower limb (04/29/21) Infection and inflammatory reaction due to internal left knee prosthesis, initial encounter (04/29/21) Infection and inflammatory reaction due to internal left knee prosthesis, subsequent encounter (04/29/21) Encounter for other preprocedural examination (04/29/21) Allergies cephalexin Allergy (Intermediate, Verified 04/29/21 13:50) ITCHY RASH Height/Weight/Isolation Height 5 ft 4 in Weight 98.7 kg Chemistry 05/06/21 05/07/21 06:02 05:47 Sodium 138 Potassium 4.0 Chloride 102 Carbon Dioxide 30 Anion Gap 6.0 BUN 19 H Creatinine 0.64 D 0.76 Glucose 121 H Microbiology 05/01/21 Unknown Knee,Left Gram Stain - Final 05/01/21 Unknown Knee,Left Aerobic and Anaerobic Culture - Preliminary Group B Beta Strep 05/01/21 Unknown Knee,Left Gram Stain - Final 05/01/21 Unknown Knee,Left Aerobic and Anaerobic Culture - Final Group B Beta Strep 04/30/21 16:15 Knee,Left Gram Stain - Final 04/30/21 16:15 Knee,Left Aerobic and Anaerobic Culture - Final Group B Beta Strep Hospital Course (1) Cellulitis of left leg: This is a 75yo F with a PMH of HTN, dyslipidemia, lymphedema and other medical problems listed below who presents with pain and redness in LLE x 3 days. LLE cellulitis extending over knee joint with known prosthesis Had significant leukocytosis Redness and warmth extending up to upper part of the medial side of the knee A few skin lesions noted Advised to keep the legs elevated while in bed Has been started on intravenous ceftriaxone No fever and chills and the white count has been normalized Septic arthritis left knee Left knee effusion Associated with severe pain with movement X-ray of the knee did show moderate amount of fluid +Septic arthritis Pain has been noted to be worse this morning Ortho-s/p Left Knee Incision and Drainage Knee, Synovectomy, Polyethylene Exchange, Application of Stimulan Beads Vancomycin was added yesterday and she will have left knee drainage and stimulant beads implanted today Left knee aspirate is growing group be beta streptococci and is pansensitive Appreciate ID input and recommendation ID wanted to have explant of the prosthesis and continue with antibiotic The patient wanted to have IV antibiotic followed by prolonged oral course of antibiotic to avoid any further surgery Will need IV antibiotic for 6 weeks followed by oral as per Ortho and ID PT and OT evaluation and will need to go to rehab Will need ceftriaxone 2 g IV daily plus rifampicin 300 mg twice daily orally for 6 weeks in total and then amoxicillin 500 mg 3 times daily and rifampin 300 mg twice daily for 6 more week DC to [facility] today (2) Lymphedema: History of bilateral lymphedema complicating the leg cellulitis on the left Doppler of BLE to evaluate for DVT -no evidence of DVT Has been on outpatient hydrochlorothiazide Advised the legs to be elevated while in bed Compression stockings will be prescribed on discharge (3) HTN (hypertension): BP on lower end of normal, 104/62. Continue HCTZ, lisinopril and Toprol with hold parameters Blood pressure remains upper side (4) HLD (hyperlipidemia): Continue statin DVT Ppx: SQ Lovenox Code status: FULL PCP: Paty Dispo: Admitted to med/surg Total Time Total Time Spent Total Time Spent (In Minutes): 45 mins Total Time Includes: Examination of the Patient, Discharge Planning, Medication Reconciliation, Communication With Other Providers and Other Discharge Plan Discharge Items Patient Disposition: Transfer [facility] Reason For Visit: GILMAR CELLULITIS Discharge Diagnosis: (1) Cellulitis of left leg: Septic arthritis left knee, Left knee effusion (2) Lymphedema: (3) HTN (hypertension): (4) HLD (hyperlipidemia): Condition on Discharge: Good Health Concerns: Clearing infection Activity: Per Instructions section Activity Comment: Per Ortho Lifting: None Bathing: Keep incision dry Exercise/Sports: None Weightbearing Comment: WBAT or as per ortho Non-emergency contact: Primary Care Provider, Surgeon and Specialist Call non-emergency contact if: you have any medication questions Follow-up/Referrals: [facility] [Outside] (Infectious disease in 4-6 weeks) Tia Hogan PA-C [Primary Care Provider] - Nnamdi Zhu MD [Surgeon] - (2 weeks) Diet: Heart Healthy Addtl Attending Provider Instructions: None Addtl Plan Checker Provider Instructions: ACTIVITY RECOMMENDATIONS: SELF CARE INSTRUCTIONS A. You may need to continue a physical therapy program after discharge from the hospital. There are several options available to you. Your doctor will assist you in selecting the best one for you. 1. An out-patient facility 2 to 3 times a week for therapy or home therapy. 2. Continue working on all exercises taught to you in the hospital. Your goals should be to increase bending of your knee to 90 degrees and beyond and to fully straighten your knee. B. You may progress at your own pace from walking with a walker or crutches to a cane; then to no assistive devices. C. Make walking a part of your daily routine. Be up as much as comfortable with rest periods throughout the day. Rest with leg elevation is very important. Use the ice wrap frequently for the first 3-4 weeks. D. There are no restrictions on activities. You may ride in a car, shop, participate in human resources operations director and all social activities. E. Wear the long elastic stockings (VIOLET hose) 20 hours a day for 2 weeks after surgery. They can be removed several times a day for laundering and for a bath. F. You may shower, no tub baths until cleared by your doctor. SPECIAL CARE INSTRUCTIONS: VERY IMPORTANT TO READ AND REVIEW A. There are a few signs you need to watch for after you are home. Call [facility] if you notice any of the followin. Increased severe knee pain. Some pain is expected especially when you exercise. 2. Increased swelling in your leg or knee; pain or swelling of the calf muscle in either lower leg. 3. Any fluid drainage from the incision. 4. Shortness of breath or chest pain. B. Please call [facility] at if you have any concerns or questions about your operation or recovery. The doctor or his nurse will return your call promptly. C. You must take antibiotics before dental work, bladder, bowel or other surgery. Your doctor will provide you with a permanent care to carry describing this precaution. IMPORTANT: * REMEMBER TO TAKE ASPIRIN 81MG, TWICE DAILY FOR 4 WEEKS UNLESS OTHERWISE DIRECTED. THIS IS YOUR BLOOD THINNER. * CALL IF INCREASED PAIN, REDNESS, DRAINAGE OR FEVER GREATER THAT 101. * WEAR VIOLET HOSE 20 HOURS PER DAY FOR 2 WEEKS. This is a large suction dressing covering your incision. This will help pull any excess drainage from the wound and allow your incision to heal properly. You may shower with this if you can keep the unit outside of the shower. If any bleeding or leakage is noted please call your doctor's office. This will remain on your incision for 7 days and then should be removed. This can be done yourself or by the home nursing staff if applicable. The entire unit is disposable once removed. Once removed, keep incision clean and dry. If redness or drainage is noted, please call your surgeon. IF INCISION IS LEAKING THROUGH DRESSING, CALL THE OFFICE . FOLLOW UP VISIT: If appointment is not already scheduled: Please call [facility] to make a follow-up appointment for 2 weeks after your surgery at . Pending Studies at Discharge: No Stand-Alone Forms: My [facility] Skilled Items Patient informed of condition?: Yes DNR: No Discharge Level of Care: Skilled Communicable Disease: No Discharge Prognosis: Improving Lines: PICC Urinary Catheter: No Medications and DC Order Prescriptions: New rifampin 300 mg Capsule 300 mg PO BID Qty: 168 RF: 0 enoxaparin 40 mg/0.4 mL Syringe 40 mg subcut Q24H Qty: 4 RF: 0 acetaminophen 325 mg Tablet 650 mg PO Q4H PRN (Reason: fever or pain) Qty: 60 RF: 0 oxycodone 5 mg Tablet 5 - 10 mg PO Q4H PRN (Reason: pain) Qty: 30 RF: 0 tramadol 50 mg Tablet 25 - 50 mg PO Q4H PRN (Reason: pain) Qty: 30 RF: 0 bisacodyl 10 mg Suppository 10 mg ND DAILY PRN (Reason: constipation) Qty: 10 RF: 0 docusate sodium 100 mg Capsule 100 mg PO BID Qty: 60 RF: 0 polyethylene glycol 3350 [Miralax] 17 gram Powder In Packet 17 g PO DAILY PRN (Reason: constipation) Qty: 30 RF: 0 sennosides [Senokot] 8.6 mg Tablet 17.2 mg PO HS Qty: 60 RF: 0 ceftriaxone 2 gram recon soln 2 g IV DAILY Qty: 42 RF: 0 amoxicillin 500 mg tablet 500 mg PO TID Qty: 126 RF: 0 Continued multivitamin Tablet 1 tab PO QAM RF: 0 simvastatin 40 mg tablet 40 mg PO QPM RF: 0 betamethasone dipropionate 0.05 % Cream 1 applic TOPICAL DIRECTED PRN (Reason: Skin Irritation) RF: 0 metoprolol succinate 25 mg tablet extended release 24 hr 25 mg PO QAM RF: 0 clobetasol 0.05 % Ointment 1 applic TOPICAL DIRECTED PRN (Reason: Skin Irritation) RF: 0 lisinopril 40 mg tablet 40 mg PO QAM RF: 0 loratadine 10 mg Tablet 10 mg PO DAILY PRN (Reason: Congestion) RF: 0 polyvinyl alcohol-povidone 0.5-0.6 % Drops 1 drp OPHTHALMIC (EYE) DIRECTED PRN (Reason: Dry Eyes) RF: 0 hydrochlorothiazide 50 mg tablet 50 mg PO DAILY Qty: 30 RF: 0 biotin 1 mg Tablet 1 mg PO DAILY RF: 0 aspirin [Aspir-81] 81 mg Tablet,Delayed Release (Dr/Ec) 81 mg PO QAM RF: 0 Discontinued ibuprofen 200 mg Tablet 400 mg PO Q6H PRN (Reason: Pain) RF: 0 Discharge Orders: Discharge Order (Routine); Ordered 05/07/21 Ordered By: Wild Leavitt Admission Data Admit Date/Time: 04/29/21 13:16 Attending Provider: Wild Leavitt Admit Provider: Marcus Pichardo Primary Care Provider: Tia Hogan
[2021-05-07] MEDS: traMADol HCL 50 MG TABLET PO PRN (12:33)
== END 2021-05-07 13:09 | DRG 464 ==
LOC: ED 10:15 → 2N 13:16 → SUATTDRO 13:16 → 2N 16:07 → 3W 05-04 22:36

== ENCOUNTER 2022-07-13 10:03 | Inpatient (IN) ==
--- NOTE | 2022-06-08 16:09 | PAT Medication Instructions ---
Medication Instructions Date of Service June 08, 2022 Home Medications Medication Instructions Recorded acetaminophen 325 mg tablet 650 mg PO Q4H PRN fever or pain 05/07/21 #60 tabs polyethylene glycol 3350 17 gram 17 g PO DAILY PRN constipation #30 05/07/21 oral powder packet (Miralax) ea betamethasone dipropionate 0.05 % topical cream 1 applic topical DIRECTED PRN Skin Irritation clobetasol 0.05 % topical ointment 1 applic topical DIRECTED PRN Skin Irritation lisinopril 40 mg tablet 40 mg PO QAM loratadine 10 mg tablet 10 mg PO DAILY PRN Congestion metoprolol succinate 25 mg tablet,extended release 24 hr 25 mg PO QAM multivitamin 1 tab PO QAM polyvinyl alcohol-povidone 0.5 %-0.6 % eye drops (Clear Eyes Natural Tears) 1 drp ophthalmic (eye) DIRECTED PRN Dry Eyes aspirin 81 mg tablet,delayed release 81 mg PO QAM biotin 1 mg tablet 1 mg PO QAM acetaminophen 325 mg tablet 650 mg PO Q4H PRN fever or pain polyethylene glycol 3350 17 gram oral powder packet (Miralax) 17 g PO DAILY PRN constipation amlodipine 5 mg tablet 5 mg PO QAM atorvastatin 20 mg tablet 20 mg PO PM hydrochlorothiazide 50 mg tablet 50 mg PO QAM STOP taking 2 weeks before surgery biotin 1 mg tablet 1 mg PO QAM STOP taking 24 hours before surgery betamethasone dipropionate 0.05 % topical cream 1 applic topical DIRECTED PRN Skin Irritation(if needed) clobetasol 0.05 % topical ointment 1 applic topical DIRECTED PRN Skin Irritation(if needed) DO NOT take the morning of surgery lisinopril 40 mg tablet 40 mg PO QAM loratadine 10 mg tablet 10 mg PO DAILY PRN Congestion(if needed) multivitamin 1 tab PO QAM polyethylene glycol 3350 17 gram oral powder packet (Miralax) 17 g PO DAILY PRN constipation hydrochlorothiazide 50 mg tablet 50 mg PO QAM Take morning of surgery With a small sip of water, OTHERWISE NOTHING TO EAT OR DRINK AFTER MIDNIGHT: metoprolol succinate 25 mg tablet,extended release 24 hr 25 mg PO QAM polyvinyl alcohol-povidone 0.5 %-0.6 % eye drops (Clear Eyes Natural Tears) 1 drp ophthalmic (eye) DIRECTED PRN Dry Eyes(if needed) aspirin 81 mg tablet,delayed release 81 mg PO QAM (unless directed otherwise by surgeon) acetaminophen 325 mg tablet 650 mg PO Q4H PRN fever or pain(if needed) amlodipine 5 mg tablet 5 mg PO QAM Take evening before surgery acetaminophen 325 mg tablet 650 mg PO Q4H PRN fever or pain(if needed) atorvastatin 20 mg tablet 20 mg PO PM Other Notes If you have any questions please call us at [phone] or [phone] or [phone] or [phone]
--- NOTE | 2022-06-18 13:59 | Anesthesiology Consultation ---
Date of Service June 18, 2022 Assessment & Plan (1) Encounter for pre-operative examination: - Patient acceptable risk for surgery pending surgeon-ordered PCP preop evaluation (January Samira/SKINNY, scheduled 06/23). - COVID screening: Per assessment on 06/15: No known COVID-19 positive contacts or current COVID-19 related symptoms. Travel screen negative. Patient vaccinated. At surgeon discretion if preop Covid testing being done. - Outpatient joint assessment: Pt currently scheduled for inpatient pathway. If surgeon requests review for outpatient joint pathway, patient is not acceptable candidate for outpatient joint program from anesthesia standpoint. Chart Review Chart Review: Patient seen in Pre Admission Testing History Surgery Operation Date: 07/13/22 11:45 Proposed Procedures p Right Total Shoulder Arthroplasty - Nnamdi Zhu MD Height/Weight Height: 5 ft Weight: 99 kg Allergies Allergy/AdvReac Type Severity Reaction Status Date / Time cephalexin Allergy Intermediate Itchiness, Verified 06/18/22 11:46 rash Cephalosporins Allergy Itchiness, Verified 06/18/22 11:46 rash Medications Home Medications Medication Instructions Recorded Confirmed Last Taken betamethasone dipropionate 0.05 % 1 applic topical DIRECTED PRN 04/26/20 06/15/22 Unknown topical cream Skin Irritation clobetasol 0.05 % topical ointment 1 applic topical DIRECTED PRN 04/26/20 06/15/22 Unknown Skin Irritation lisinopril 40 mg tablet 40 mg PO QAM 04/26/20 06/15/22 06/15/22 07:00 loratadine 10 mg tablet 10 mg PO DAILY PRN Congestion 04/26/20 06/15/22 Unknown metoprolol succinate 25 mg 25 mg PO QAM 04/26/20 06/15/22 06/15/22 07:00 tablet,extended release 24 hr multivitamin 1 tab PO QAM 04/26/20 06/15/22 04/26/20 polyvinyl alcohol-povidone 0.5 1 drp ophthalmic (eye) DIRECTED 04/26/20 06/15/22 Unknown %-0.6 % eye drops (Clear Eyes PRN Dry Eyes Natural Tears) aspirin 81 mg tablet,delayed 81 mg PO QAM 04/29/21 06/15/22 04/29/21 release biotin 1 mg tablet 1 mg PO QAM 04/29/21 06/15/22 Unknown acetaminophen 325 mg tablet 650 mg PO Q4H PRN fever or pain 05/07/21 06/15/22 Unknown #60 tabs polyethylene glycol 3350 17 gram 17 g PO DAILY PRN constipation #30 05/07/21 06/15/22 Unknown oral powder packet (Miralax) ea amlodipine 5 mg tablet 5 mg PO QAM 05/01/22 06/15/22 06/15/22 07:00 atorvastatin 20 mg tablet 20 mg PO PM 05/01/22 06/15/22 Unknown hydrochlorothiazide 50 mg tablet 50 mg PO QAM 05/01/22 06/15/22 Unknown Past Medical History Medical History HLD (hyperlipidemia) HTN (hypertension) Lymphedema Morbid obesity Osteoarthritis Psoriasis Exercise / Class Metabolic Activity II 4-5 Yardwork/Stairs/Walk up hill (one FS (no CP, no SOB)) Past Family History Family History Other Heart disease Lung disease No family history of adverse response to anesthesia Stroke Past Surgical History Surgical History H/O dilation and curettage H/O left knee surgery left knee revision d/t infection (2020 at [facility]) H/O vaginal hysterectomy History of appendectomy History of cataract surgery R/L (done 2021 at [facility] [place]) History of cervical spinal surgery x2 History of colonoscopy History of knee replacement procedure of left knee History of knee replacement procedure of right knee Past Anesthesia History No Hx of Anesthesia Complications and No Family Hx of Anesthesia Complications History of PONV No Hx of PONV and No Hx of Motion Sickness Social History Smoking Status: Former smoker Do You Dip or Chew Tobacco: No Smoking End Date: Quit 50 years ago Hx Alcohol Use: Yes alcohol intake frequency: holidays/special occasions only Hx Substance Use: No substance use type: does not use Review of Systems Patient denies chest pain, shortness of breath, dyspnea on exertion, fever, chills, cough, wheezing, palpitations. Physical Exam Vital Signs VITALS BP 117/73 P 61 TEMP 98.7 SP02 98%RA RESP 16 PHYSICAL Mildly decreased cervical extension range of motion. Full TMJ range of motion. TMD 3.5 finger breaths Mallampati Score 2 Dentition: upper full plate Lungs: clear throughout to auscultation Cardiac: regular rate and rhythm, no murmurs noted Spine: normal Carotid arteries: negative bruit Extremities: + lymphedema Lab Results Anesthesia Preop Results Results Anesthesia Widget: WBC 5.51 K/ul (4.8-10.8) 06/18/22 Hgb 12.1 g/dl (12.0-16.0) 06/18/22 Hct 35.5 % (34.1-44.9) 06/18/22 Plt 184 K/uL (130-400) 06/18/22 PT 10.4 Seconds (9.0-12.0) 06/18/22 PTT 24.2 Seconds (21.0-31.0) 06/18/22 INR 1.0 (0.9-1.1) 06/18/22 Urine Color Dark Yellow 06/18/22 Urine Appearance Clear (Clear) 06/18/22 Urine pH 7.0 (4.5-7.5) 06/18/22 Urine Specific [place] 1.018 (1.000-1.030) 06/18/22 Urine Protein Negative (Negative) 06/18/22 Urine Glucose (UA) Negative (Negative) 06/18/22 Urine Ketones Negative (Negative) 06/18/22 Urine Blood Negative (Negative) 06/18/22 Urine Nitrite Negative (Negative) 06/18/22 Urine Bilirubin Negative (Negative) 06/18/22 Urine Urobilinogen Positive (Negative) H 06/18/22 Urine Leukocyte Esterase Trace (Negative) H 06/18/22 Urine WBC (Auto) 1-5 /hpf (0-5) 06/18/22 Urine RBC (Auto) 0-4 /hpf (0-4) 06/18/22 Urine Hyaline Casts (Auto) 0 /lpf (0-5) 06/18/22 Urine Epithelial Cells (Auto) >30 /lpf (0-5) H 06/18/22 Urine Bacteria (Auto) Negative (Negative) 06/18/22 Blood Type B Positive 06/18/22 Antibody Screen NEGATIVE 06/18/22 Testing Laboratory Results 06/04/22 SODIUM 141 POTASSIUM 4.5 CHLORIDE 103 CO2 28 BUN 25 CREATININE 1.1 GLUCOSE 103 HGBA1C 5.7% Electrocardiogram Date: 06/18/22 SB with first degree AVB at 59bpm. Otherwise normal ECG. Chest X-Ray Date: 06/18/22 FINDINGS: Anterior cervical fixation hardware is seen. Cardiomegaly is noted with tortuous aorta. The lungs are clear. No evidence of pleural effusion or pneumothorax. IMPRESSION: No acute chest disease. Echocardiogram Date: 12/04/16 LVEF 60-65%. Normal LV wall thickness. Moderate MR.
--- NOTE | 2022-07-12 12:58 | History & Physical Report ---
Date of Service July 12, 2022 Assessment & Plan (1) Primary osteoarthritis, right shoulder: Plan: Treatment options discussed with patient. She has failed conservative measures and would like to proceed with surgical intervention. Risks, benefits and alternatives to surgery including but not limited to infection, DVT, pain, stiffness, need for revision surgery, damage to blood vessels, damage to nerves, PE, , were discussed with the patient and they wish to proceed. Plan on right total shoulder arthroplasty scheduleed for [facility] on 07/13/[address] Zhu. All questions answered. Patient will follow up post op. History of Present Illness Chief Complaint: Right shoulder pain Primary Care Provider: Tia Hogan PA-C 77 year old female with PMHx significant for HTN, high cholesterol, lymphedema, hx of infected total knee who presents with ongoing right shoulder pain. Pain is interfering with her daily activities. She has failed conservative measures and would like to proceed with surgical intervention. Patient denies headaches, sweats, fevers, chills, double vision, blurred vision, cough, sore throat, dysphagia, chest pain, sob, wheezing, n/v/d/c, numbness, tingling, fatigue, urinary symptoms, mood disorders. ROS positive for right shoulder pain and stiffness. Allergies Allergy/AdvReac Type Severity Reaction Status Date / Time cephalexin Allergy Intermediate Itchiness, Verified 06/18/22 11:46 rash Cephalosporins Allergy Itchiness, Verified 06/18/22 11:46 rash Home Medications Medication Instructions Recorded Confirmed Type betamethasone dipropionate 0.05 % 1 applic topical DIRECTED PRN 04/26/20 06/15/22 History topical cream Skin Irritation clobetasol 0.05 % topical ointment 1 applic topical DIRECTED PRN 04/26/20 06/15/22 History Skin Irritation lisinopril 40 mg tablet 40 mg PO QAM 04/26/20 06/15/22 History loratadine 10 mg tablet 10 mg PO DAILY PRN Congestion 04/26/20 06/15/22 History metoprolol succinate 25 mg 25 mg PO QAM 04/26/20 06/15/22 History tablet,extended release 24 hr multivitamin 1 tab PO QAM 04/26/20 06/15/22 History polyvinyl alcohol-povidone 0.5 1 drp ophthalmic (eye) DIRECTED 04/26/20 06/15/22 History %-0.6 % eye drops (Clear Eyes PRN Dry Eyes Natural Tears) aspirin 81 mg tablet,delayed 81 mg PO QAM 04/29/21 06/15/22 History release biotin 1 mg tablet 1 mg PO QAM 04/29/21 06/15/22 History acetaminophen 325 mg tablet 650 mg PO Q4H PRN fever or pain 05/07/21 06/15/22 Rx #60 tabs polyethylene glycol 3350 17 gram 17 g PO DAILY PRN constipation #30 05/07/21 06/15/22 Rx oral powder packet (Miralax) ea amlodipine 5 mg tablet 5 mg PO QAM 05/01/22 06/15/22 History atorvastatin 20 mg tablet 20 mg PO PM 05/01/22 06/15/22 History hydrochlorothiazide 50 mg tablet 50 mg PO QAM 05/01/22 06/15/22 History Past Med/Surg History Medical History HLD (hyperlipidemia) HTN (hypertension) Lymphedema Morbid obesity Osteoarthritis Psoriasis Surgical History H/O dilation and curettage H/O left knee surgery left knee revision d/t infection (2020 at [facility]) H/O vaginal hysterectomy History of appendectomy History of cataract surgery R/L (done 2021 at [facility] [place]) History of cervical spinal surgery x2 History of colonoscopy History of knee replacement procedure of left knee History of knee replacement procedure of right knee Family History Other Heart disease Lung disease No family history of adverse response to anesthesia Stroke Social History Smoking Status: Former smoker Smoking End Date: Quit 50 years ago; Second Hand Exposure: No; Do You Dip or Chew Tobacco: No; Tobacco Cessation Education Requested by Patient: No Hx Alcohol Use: Yes Alcohol Intake Frequency: Monthly or Less Hx Substance Use: No Preferred Language: Icelandic Communication Ability: Effective Senior Branch Manager Required: No Beliefs That Will Affect Care: None Current Living Situation: Alone Other Information That Helps Us Care for You: No Feels Safe at Home: Yes Safety Concerns: Feels Safe At This Time Assistive Devices: Denture - Upper and Glasses Review of Systems All systems reviewed & are unremarkable except as noted in HPI & below Physical Exam Constitutional: well developed and well nourished; no acute distress Eyes: PERRL, conjunctivae normal, anicteric sclerae ENMT: external ear and nose normal, oropharynx normal Neck: trachea midline, no thyromegaly Respiratory: normal respiratory effort, lungs clear to auscultation Cardiovascular: RRR, no murmur, no edema Musculoskeletal: Right shoulder: Crepitation and pain with ROM. Diffuse tenderness. Negative impingement signs. Abduction to 80 degrees, FF to 80 degrees actively, ER to 30 degrees. Strength equal bilaterally. Skin: no rashes, warm and dry Neurologic: patellar DTR's 2+ bilat, sensation intact Psychiatric: A+Ox3, euthymic affect Results & Data ([facility]) Diagnostic Findings Right shoulder: Severe endstage osteoarthritis right shoulder, bone on bone GH joint.
[~2022-07-13 10:03] MED LIST changes: +ACETAMINOPHEN 500 MG TAB PO SCH; -ASPI81TA28 PO; -BETA0.053 TOP; -BIOTCAP2 PO; +BUPIVACAINE 0.5 % 5 MG/1 ML PF 10ML VIAL ONE; -CEFAZOLIN 2000MG IV PUSH 10 ML IV SCH; -CLBCRM30 EXT; -CLR10 PO; +CeleBREX 200 MG CAP PO SCH; +FAMOTIDINE 20 MG TAB PO SCH; +GABAPENTIN 300 MG CAP PO SCH; -HYDR25TA4 PO; -IBUP-1050 PO; -LISI40TA PO; +LR 15ML/HR IV SCH; -METO25TA3 PO; +METOCLOPRAMIDE HCL 10 MG TABLET PO SCH; -MULT-506 PO; -NAPR1TAB9 PO; -POLYSOL OPB; -SIMV40TA2 PO; +TRANEXAMIC ACID 1,000 MG **IV Intra-op IV SCH; +TRANEXAMIC ACID 1,000 MG **IV Pre-op IV SCH; +VANCOMYCIN HCL 1,500 MG in SODIUM CHLORIDE 0.9% 500 ML IV SCH; +dexAMETHasone 4 MG TAB PO SCH; +fentaNYL citrate 100 MCG/2 ML VIAL ONE
[2022-07-13] MEDS ORDERED: MIDAZOLAM HCL 1 MG/ML 2ML VIAL ONE (10:05)
[2022-07-13] MEDS ORDERED: PHENYLEPHRINE HCL 10 MG/ML VIAL ONE (10:21)
--- NOTE | 2022-07-13 10:28 | History & Physical Bridge Note ---
Date of Service July 13, 2022 History & Physical Bridge Note I have examined the patient, reviewed the History & Physical and in the interval since the performance of the History & Physical I have noted the following changes of clinical significance: no changes noted
[2022-07-13] MEDS ORDERED: EPINEPHrine HCL INJ 1 MG/ML 30ML ONE (12:45)
[2022-07-13] MEDS ORDERED: NEOSTIGMINE METHYLSULFATE 1 MG/ML 10ML VIAL ONE (13:21)
[2022-07-13] MEDS ORDERED: PROPOFOL IV EMULSION 10 MG/ML 20 ML VIAL IV ONE (13:21)
[2022-07-13] MEDS ORDERED: LIDOCAINE 2% MPF LOCAL 5 ML VIAL INFIL ONE (13:21)
[2022-07-13] MEDS ORDERED: ONDANSETRON INJ 2 MG/ML 2 ML VIAL ONE (13:21)
[2022-07-13] MEDS ORDERED: ROCURONIUM BROMIDE 10 MG/ML 5 ML VIAL IV ONE (13:21)
[2022-07-13] MEDS ORDERED: GLYCOPYRROLATE 0.2 MG/ML VIAL ONE (13:21)
--- NOTE | 2022-07-13 16:24 | Operative Report ---
Post Operative Report Pre & Post Diagnosis Operation Date: 07/13/22 12:15 Pre-Op Diagnosis: End-stage glenohumeral osteoarthritis Right Shoulder, morbid obesity BMI 42.2 Post-Op Diagnosis: End-stage glenohumeral osteoarthritis Right Shoulder, hemorrhagic synovitis ashley ps tendon with biceps tendinopathy, morbid obesity BMI 42.2 I identified the patient and participated in the time-out.: Yes Procedure Operation Date: 07/13/22 12:15 Actual Procedures p Right Total Shoulder Arthroplasty(Right), biceps tenodesis, increased difficulty morbid obesity BMI 42.2- Nnamdi Zhu MD Surgeon Nnamdi Zhu MD Crm Solution Architect Ever JENNINGS Estimated Blood Loss 75 Findings Consistent with Post-Op Diagnosis Specimens Humeral head Drains 2 Hemovac Anesthesia Type General Regional Complications none Disposition Disposition: Recovery Room Indications 77-year female with chronic progressive osteoarthritis in her right shoulder with decreased range of motion and pain. Patient has intact rotator cuff. There is central aligned type A wear pattern with some bone loss. Description of Procedure Patient was taken to the operating room anesthetized under regional block and general anesthetic. Patient was placed in a 40 degree beachchair position with a foam headrest protective eyewear all extremities padded and SCDs were placed. Patient had significant lymphedema both lower extremities which is chronic. A towel roll was placed on the medial border of the scapula of the right upper extremity. The arm was examined and range of motion demonstrated 130 degrees flexion 90 degrees abduction 20 degrees external rotation [id number] crepitation. Some of her posterior skin on her back had some old healing sores on the skin that suggested possibly shingles with multiple striations possible stretch turner posterior shoulder area. None of these were in the operative field area.. An anterior deltopectoral approach was performed. Longitudinal incision was made in deltopectoral interval. Skin incised sharply and subcutaneous flaps elevated. The deltopectoral interval was identified. The cephalic vein demonstrated medium sized vein with a large branch crossing medially this was tied off with silk ties and divided. The cephalic vein was retracted laterally with the deltoid. The upper centimeter of the pectoralis was released for inferior exposure. Biceps tendon demonstrated hemorrhagic biceps tenosynovitis with a purple discoloration of the entire tendon sheath from the shoulder joint down to the pectoralis. On opening the sheath there was bleeding within it and chronic tenosynovitis and spurs in the bicipital groove area. A thorough tenosynovectomy was performed moving all the thickened inflamed tenosynovium up into the bicipital groove and down to the pectoralis tendon. Loose body was removed from the biceps groove area. The biceps was tenodesed to the pectoralis tendon using #2 FiberWire [id number]-[id number] sutures. Proximal biceps was resected. Spurs were removed with a rongeur. Rotator cuff findings demonstrated some tendinopathy thinning of the junction between the supraspinatus and infraspinatus on the bursal surface but no full-thickness rotator cuff tear no high-grade tear of the rotator cuff was noted with essentially completely intact rotator cuff including the subscapularis.. The c ircumflex vessels were tied off with silk ties and divided laterally. The subscapularis muscle fibers were split at the level of circumflex vessels and released off the inferior capsule with a Kitner elevator and then a blunt Hohmann retractor was placed protect the axillary nerve. The rotator interval was released down to the level of the glenoid. The subscapularis tendon was taken down with a transtendinous incision leaving a cuff of tissue for repair on the lesser tuberosity. The humeral head findings demonstrated anterior-inferior and posterior osteophytes which were moderately large. There was no articular surface remaining on the humeral head with some flattening and thinning of the humeral head with type A central wear. The anterior posterior and inferior osteophytes were resected using an artist chisel and rongeur. The inferior capsule was released off the bone subperiosteally using a Tomlin elevator. A #1 Vicryl traction suture was placed into the free edge of the subscapularis tendon. A Fukuda retractor was placed into the joint. Capsule was released with Phelan scissors down to the glenoid and off of the anterior glenoid to the rotator interval which was released to meet the capsular release creating a 360 degree release of subscapularis tendon. An anterior Bankart retractor was placed. The glenoid and labral findings demonstrated significant degeneration of the labrum circumferentially and there was a large posterior osteophyte extending into the labral tissue which was calcified. Glenoid was completely eburnated bone and there was no articular cartilage remaining at all and the glenoid had a nice curved worn surface to it. The glenoid labrum was resected as well as remainder of the biceps tendon. An anterior-inferior and posterior inferior capsule release was performed electrocautery on bone and a Tomlin elevator. The osteophyte was removed with angled curette posteriorly. The axillary nerve was protected inferiorly with the blunt Hohmann. Attention was taken back to the humeral head. Humeral head was exposed with extension and external rotation. The oscillating saw was used to make an anatomic neck cut removing the articular surface. All the circumferential remaining osteophytes were trimmed with a rongeur. The humerus was sized for a 1 nucleus and a 43 x 16 mm simplicity humeral head. The bone was assessed with a thumb press test and there was solid cancellous bone. The guide for the nucleus was placed centrally and then the guidepin was placed. The surface reamer was used followed by the central drill for the nucleus. The trial nucleus was inserted and the cut protector was placed. The humerus was retracted posterior to the glenoid . A Tornier retractor ,Hohmann retractors as well as an anterior Bankart retractor were placed. The glenoid was fully exposed. The Tornier Cortiloc glenoid was used. The small 30 radius size was chosen. The central drill hole was made followed by the reamer which was minimally used to to the tight exposure of the glenoid followed by widening the central hole for the central post. He used a curette on the surface to roughen the surface and we placed a trial component on the surface and the 30 radius fit perfectly. The guide for the peripheral drill holes was placed and the drill holes were made. The trial reduction performed with stable fixation. The trial removed and the glenoid copiously irrigated with pulsed saline solution. The drill holes were packed with epinephrine-soaked tampons. The Palacos G cement was vacuum mixed. The 28 Cortiloc 30 radius small glenoid component was then cemented in position after drying the glenoid after removal of the tampons. Fixation was excellent. All excess cement was cleared. When the cement cured we moved onto removing the cut protector doing a trial reduction with a 43 x 16 millimeter humeral head trial. Stability was assessed and was stable. Soft tissue tension on the subscapularis tendon was satisfactory. The trial components of the humeral head were removed and the 3 drill holes were made in the harder bone in the biceps groove area and transosseous #5 FiberWire sutures were placed. Then the humeral cut surface was reexposed with retractors and after irrigation I harvested some bone graft from the humeral head cut and placed some cancellous bone deep to the surface for the bone was softer to help get and enhance press-fit fixation. The size 1 nucleus was impacted leaving it slightly proud until the 43 x 16 humeral head was placed into the nucleus and then both were impacted into the humerus with a moderately tight press-fit. The humerus was reduced to the glenoid. The stability was verified. The subscapularis tendon was repaired in 2 [id number] #2 FiberWire sutures. Lateral row fixation was performed with interrupted [id number] #2 FiberWire sutures and rotator interval was closed with #2 FiberWire sutures. Range of motion demonstrated 130 degrees of flexion 90 degrees abduction 30 degrees external rotation without tension on repair. The pectoralis was repaired with [id number] #2 FiberWire sutures placing sutures back through the biceps tendon to reinforce the tenodesis. 2 Hemovac drains were placed. The deltopectoral interval was repaired with [id number] #1 Vicryl sutures. A tear in the cephalic vein occurred during the exposure and this was tied off with silk ties. The subcutaneous tissue was repaired with 2-0 Vicryl sutures and the skin was closed with clair. Sterile dressings were applied and a sling immobilizer. The patient tolerated the procedure well. There was increased level difficulty due to her obesity mainly with exposure and positioning and this added 30 minutes to the procedure. Ever JENNINGS acted as assistant manager of operations throughout the procedure. He functioned as assistant manager of operations assisting in all aspects of the procedure including patient positioning prepping draping, arm positioning, soft tissue retraction,, ins trument management, subcutaneous and skin closure and postop care the patient as well. I attest to the content of the Intraoperative Record and any orders documented therein. Any exceptions are noted below.
--- NOTE | 2022-07-13 16:42 | XRay Report ---
XR shoulder RT min 2V routine CLINICAL HISTORY: Post shoulder surgery TECHNIQUE: 3 views of the right shoulder were obtained. Comparison: None available at the time of this dictation. FINDINGS: Patient is status post shoulder arthroplasty with expected postsurgical changes including soft tissue swelling and subcutaneous emphysema. No periarticular lucency or hardware fracture is seen. There is pulmonary vascular congestion and suggestion of cardiomegaly. IMPRESSION: Expected postoperative appearance status post placement of shoulder arthroplasty. ACT 112: Negative or not required by law. Electronically signed by: Brian Mendez M.D. 07/13/2022 4:41 PM
--- NOTE | 2022-07-13 16:59 | Anesthesiology Progress Note ---
Date of Service July 13, 2022 Anesthesia Post Procedure Vital Signs Vital Signs: Temp Pulse Resp BP BP Pulse Ox O2 Del Method 07/13/22 16:55 36.4 C L 73 16 103/55 L 94 Room Air 07/13/22 16:45 80 16 107/47 L 99 Oxymask 07/13/22 16:35 74 16 115/56 L 100 Oxymask 07/13/22 16:25 82 16 110/58 L 100 Oxymask 07/13/22 16:18 36.2 C L 88 16 127/59 L 99 Oxymask 07/13/22 10:45 36.7 C 87 22 155/60 H 99 Room Air O2 Flow Rate 07/13/22 16:55 07/13/22 16:45 3 07/13/22 16:35 5 07/13/22 16:25 5 07/13/22 16:18 5 07/13/22 10:45 Transfer of Care Handoff Completed per policy Notes Mental Status: alert / awake / arousable Patient Amnestic to Procedure: Yes Nausea / Vomiting: adequately controlled Pain: adequately controlled Airway Patency, RR, SpO2: stable & adequate BP & HR: stable & adequate Hydration State: stable & adequate Anesthetic Complications: no major complications apparent and Pt Satisfied with anesthetic care
[2022-07-13] MEDS ORDERED: VANCOMYCIN CONSULT ACTIVE PRN (19:39)
[2022-07-13] MEDS ORDERED: oxyCODONE HCL IR 5 MG TAB (IMMEDIATE RELEASE) PO PRN (19:39)
[2022-07-13] MEDS ORDERED: MAGNESIUM HYDROXIDE SUSP 30 ML UDC PO PRN (19:39)
[2022-07-13] MEDS ORDERED: HYDROmorphone INJ 0.5 MG/0.5 ML SYR IV PRN (19:39)
[2022-07-13] MEDS ORDERED: bisacodyL 10 MG SUPP PR PRN (19:39)
[2022-07-13] MEDS ORDERED: ONDANSETRON INJ 2 MG/ML 2 ML VIAL IV PRN (19:39)
[2022-07-13] MEDS ORDERED: NALOXONE HCL 0.4 MG/1 ML VIAL/CARP IV PRN (19:39)
[2022-07-13] MEDS ORDERED: POLYETHYLENE (MIRALAX) 17 GM PACK PO PRN (19:39)
[2022-07-13] MEDS ORDERED: LORATADINE 10 MG TAB PO PRN (19:39)
[2022-07-13] MEDS ORDERED: METOCLOPRAMIDE HCL INJ 5 MG/ML 2 ML VIAL IV PRN (19:39)
[2022-07-13] MEDS ORDERED: CLOBETASOL PROPIONATE 0.05% OINT 15 GM TUBE EXT PRN (19:43)
[2022-07-13] MEDS ORDERED: ARTIFICIAL TEARS OP PRN (19:45)
[2022-07-13] MEDS: SODIUM CHLORIDE 0.9% 1000ML 1,000 ML IV SCH (19:47)
[2022-07-13] MEDS ORDERED: SENNA 8.6 MG TAB PO SCH (21:00)
[2022-07-13] MEDS ORDERED: ATORVASTATIN 20 MG TAB PO SCH (21:00)
[2022-07-13] MEDS: DOCUSATE SODIUM 100 MG CAP PO SCH (21:07)
[2022-07-13] MEDS: ACETAMINOPHEN 500 MG TAB PO SCH (21:09)
--- NOTE | 2022-07-13 21:23 | Consultation Report ---
DATE OF SERVICE: 07/13/2022. CHIEF COMPLAINT: Status post right shoulder arthroplasty. HISTORY OF PRESENT ILLNESS: This is a 77-year-old female with past medical history significant for hyperlipidemia, chronic sinusitis, hypertension, history of vertebrobasilar artery syndrome, left carotid stenosis, intracranial atherosclerosis, morbid obesity, chronic kidney disease stage III, decreased peripheral vibratory sense, history of status post cervical fusion surgery. She is status post right shoulder arthroplasty, tolerated the procedure okay. Denies any pain at this time. No headache, no blurred visions, no earache, no runny nose. Has some sore throat and cough. Denies any nausea or vomiting. No chest pain, no shortness of breath, no abdominal pain, no feeling hot or cold. Resting comfortably. ALLERGIES: CEPHALEXIN, CEPHALOSPORINS. PAST MEDICAL HISTORY: As mentioned above. PAST SURGICAL HISTORY: Bilateral knee arthroplasty, colonoscopy, dilatation and curettage, removal of appendix, removal of ovarian cyst, vaginal hysterectomy. MEDICATIONS: The patient is on Tylenol 650 mg p.o. q.4 hours p.r.n., amlodipine 5 mg p.o. daily, aspirin 81 mg p.o. daily, atorvastatin 20 mg p.o. p.m., biotin 1 mg p.o. daily, Clear Eyes natural tears as directed, hydrochlorothiazide 25 mg p.o. daily, lisinopril 40 mg p.o. daily, loratadine 10 mg p.o. daily p.r.n., metoprolol succinate 25 mg p.o. a.m., multivitamins 1 tablet p.o. daily, MiraLax 17 g p.o. daily p.r.n. FAMILY HISTORY: Significant for brother has cryoglobulinemia, Raynaud's, aortic aneurysm; mother had heart disorder; father had stroke. SOCIAL HISTORY: . Former smoker, quit in 1970s, smoked half pack a day for 5 years. Alcohol, rarely. No drug use. REVIEW OF SYSTEMS: As per HPI. Rest of the review of systems is negative. PHYSICAL EXAMINATION: GENERAL: The patient is of moderate build, not in acute distress. VITAL SIGNS: Temperature 36.6, pulse 92, respiratory rate 20, blood pressure 120/62, oxygen 98% on room air. HEENT: Extraocular muscles intact. NECK: No JVD or neck masses. CARDIOVASCULAR: S1 and S2 heard. Regular rate and rhythm. No murmur, no gallop. RESPIRATORY SYSTEM: Normal AP diameter. No accessory muscle use. No wheezing, no crackles. ABDOMEN: Soft, bowel sounds present, nontender, no distention. CENTRAL NERVOUS SYSTEM: Alert and oriented. Speech is clear. No facial droop. Obeys simple commands. Moves extremities. EXTREMITIES: Status post right shoulder arthroplasty, right shoulder is in sling. Dressing and drain intact. Bilateral lower extremity lymphedema present. LABORATORIES: Unavailable at this time. ASSESSMENT AND PLAN: This is a 77-year-old female who presents with right shoulder arthroscopy. 1. Right shoulder arthroplasty: Tolerated the procedure fine. Further management as per orthopedics. 2. Hypertension: Continue on lisinopril, amlodipine, hydrochlorothiazide and metoprolol. We will monitor the blood pressure. 3. Hyperlipidemia: On statin. 4. Chronic kidney disease stage III: We will follow the laboratories. 5. Deep venous thrombosis prophylaxis and disposition: As per orthopedics. Job ID: [id number] [facility]
[2022-07-13] MEDS ORDERED: VANCOMYCIN HCL 1,500 MG in SODIUM CHLORIDE 0.9% 250 ML IV SCH (23:00)
[2022-07-14] MEDS: ACETAMINOPHEN 500 MG TAB PO SCH ×2 (05:39→14:46)
[2022-07-14] MEDS: SODIUM CHLORIDE 0.9% 1000ML 1,000 ML IV SCH (05:55)
[2022-07-14 08:06] LABS: Basophils # (auto) 0.01 K/uL (0-0.2); Basophils % (auto) 0.1 %; Hematocrit (blood only) 33.2 % (34.1-44.9); Immature Granulocytes # (auto) 0.03 K/uL (0.00-0.02); Immature Granulocytes % (auto) 0.3 %; Lymphocytes # (auto) 0.74 K/uL (1.2-3.4); Lymphocytes % (auto) 7.4 %; Mean Corpuscular Hgb Conc 33.1 g/dL (32.0-36.0); Mean Corpuscular Volume 90.5 fL (80.0-100.0); Mean Platelet Volume 9.6 fL (9.4-12.3); Monocytes # (auto) 0.74 K/uL (0.24-0.82); Monocytes % (auto) 7.4 %; Neutrophils % (auto) 84.8 %; Platelet Count 146 K/uL (130-400); RDW Coefficient of Variation 12.3 % (11.5-14.5); RDW Standard Deviation 40.7 fL (36.4-46.3); Red Blood Count 3.67 M/uL (3.93-5.22); White Blood Count 10.02 K/ul (4.8-10.8)
[2022-07-14 08:25] LABS: BUN Creatinine Ratio 24.7 (10-20); Calcium 8.2 mg/dl (8.5-10.1); Creatinine Clr Calc Pharmacy 60.5 ml/min; Est GFR (African American) 80.6 ml/min; Est GFR (Non-African American) 69.6 ml/min; Potassium 4.1 mmol/L (3.5-5.1)
[2022-07-14] MEDS: DOCUSATE SODIUM 100 MG CAP PO SCH (08:44)
[2022-07-14] MEDS ORDERED: SULFAMETHOXAZOLE/TRIMETHOPRIM DS 800/160MG TAB PO SCH (09:00)
[2022-07-14] MEDS ORDERED: NON-FORMULARY MEDICATION (Multivitamin Tablet) PO SCH (09:00)
[2022-07-14] MEDS ORDERED: NON-FORMULARY MEDICATION (Biotin 1 mg Tablet) PO SCH (09:00)
[2022-07-14] MEDS ORDERED: amLODIPine BESYLATE 5 MG TAB PO SCH (09:00)
[2022-07-14] MEDS ORDERED: ASPIRIN 81 MG ECTAB PO SCH (09:00)
[2022-07-14] MEDS ORDERED: hydroCHLOROthiazide 25 MG TAB PO SCH (09:00)
[2022-07-14] MEDS ORDERED: lisinopril 40 MG TAB PO SCH (09:00)
[2022-07-14] MEDS ORDERED: MULTIVITAMIN TAB PO SCH (09:00)
[2022-07-14] MEDS ORDERED: METOPROLOL SUCC 25MG EXT REL TAB PO SCH (09:00)
--- NOTE | 2022-07-14 10:37 | Hospitalist Progress Note ---
Date of Service July 14, 2022 Assessment & Plan (1) Primary osteoarthritis, right shoulder: (2) HTN (hypertension): (3) HLD (hyperlipidemia): (4) Lymphedema: (5) Anemia: (6) Pre-diabetes: (7) CKD (chronic kidney disease) stage 3, GFR 30-59 ml/min: Plan This is a 77-year-old female who has a significant past medical history of HTN, HLD, vertebrobasilar artery syndrome, intracranial atherosclerosis, CKD stage III, history of spinal fusion and morbid obesity who presents for elective right total shoulder arthroplasty by Dr. Zhu. She tolerated the procedure well. Primary osteoarthritis, right shoulder Status post right total shoulder arthroplasty, POD #1 EBL 75 mL Pain/wound management per orthopedic Activity and therapy as directed by Ortho Encourage incentive spirometry Post op Anemia Preop hemoglobin 12.1, postoperatively 11.0 Likely dilutional as blood loss during surgery minimal HTN Blood pressure stable Continue amlodipine, hydrochlorothiazide, Toprol and lisinopril Parameters were placed Hyperlipidemia Continue statin therapy CKD stage III Baseline creatinine 1.1 BUN/creatinine stable Prediabetes A1c 5.7 on 06/04/2022 Continue to monitor fasting glucose Bilateral lymphedema At baseline per patient DVT prophylaxis: SCDs Full code PCP: Paty Dispo: per primary, pending therapy evals, possible d/c home today per pt Patient was seen and examined in collaboration with Dr. Arias, please see addendum Thank you for this consultation. We will follow the patient with you during their hospital stay. You can reach a member of the [facility] Hospitalist Team 17/05 via hospitalist role on tiger text. Admission and Anticipated Discharge Date Admission Date: July 13, 2022 Supervising Physician Co-Signing Physician Notes Pt seen and examined at bedside as a medical consult for s/p Rt shoulder total arthroplasty on 07/13/[address] Zhu for primary osteoarthritis. DVT Px/PT OT/Pain Mx per primary team. Encourage IS. Labs in AM/watch for postoperative blood loss anemia. ON exam, Rt shoulder w/ clean dressing, distal NV status wnl. Heart/Lung/Abd exam fairly wnl. Rest of the exam as above. I have seen and examined the patient and have discussed the case with the provider above. I agree with the assessment and plan as stated. Subjective Patient was seen and examined in room 379-2. Follow up R total shoulder arthoplasty. Doing well post operatively. Currently complaining of mild pain. Denies f/c/s, chest pain, sob, n/v/d, abd pain. She is tolerating diet. Plan is to d/c to home today. She lives home alone. She will have PT today. Review of Systems Review of Systems: All systems reviewed & are unremarkable except as noted in HPI & below Physical Exam Physical Exam: Gen: WD/WN, F, NAD, A&O x3 HEENT: Normocephalic, atraumatic, conjunctivae moist, sclerae anicteric, mucous membranes moist. Lung: Clear to Auscultation bilaterally, no wheezes/rales/rhonchi Heart: Regular rate, regular rhythm, no murmurs, rubs, or gallops Abdomen: Soft, NT, ND +BS x 4 Extremities: b/l lower ext lymphedema, no erythema, negative homans, RUE in immobilizer, NVI distally, dressing CDI Skin: Warm, no rash, negative turgor. Results & Data Results & Data ([facility]) Vital Signs (Past 12 Hours) Vital Signs Temp Pulse Resp BP Pulse Ox O2 Del Method 07/14/22 07:52 36.8 C 65 18 121/73 95 Room Air 07/14/22 03:11 36.4 C L 75 18 124/62 95 Room Air Laboratory Results Short CBC 07/14/22 Range/Units 07:36 WBC 10.02 (4.8-10.8) K/ul Hgb 11.0 L (12.0-16.0) g/dl Hct 33.2 L (34.1-44.9) % Plt Count 146 (130-400) K/uL BMP 07/14/22 07:36 Sodium 136 Potassium 4.1 Chloride 105 Carbon Dioxide 24 BUN 20 Creatinine 0.81 Glucose 149 H Calcium 8.2 L Medications Administered Current Inpatient Medications Acetaminophen (Acetaminophen 500 Mg Tab) 1,000 mg PO Q8 NEFTALY Stop: 08/12/22 21:59 Last Admin: 07/14/22 05:39 Dose: 1,000 mg Amlodipine Besylate (Amlodipine Besylate 5 Mg Tab) 5 mg PO QAM NEFTALY Stop: 08/13/22 08:59 Last Admin: 07/14/22 08:43 Dose: 5 mg Artificial Tears (Artificial Tears) 1 drops OP Q4H PRN PRN Reason: Dry Eyes Stop: 08/12/22 19:44 Aspirin (Aspirin 81 Mg Ectab) 81 mg PO QAM [facility] Stop: 08/13/22 08:59 Last Admin: 07/14/22 08:43 Dose: 81 mg Atorvastatin Calcium (Atorvastatin 20 Mg Tab) 20 mg PO PM [facility] Stop: 08/12/22 20:59 Last Admin: 07/13/22 21:08 Dose: 20 mg Bisacodyl (Bisacodyl 10 Mg Supp) 10 mg CO DAILY PRN PRN Reason: Constipation Stop: 08/12/22 19:38 Clobetasol Propionate (Clobetasol Propionate 0.05% Oint 15 Gm Tube) 1 appln EXT DAILY PRN PRN Reason: Skin Irritation Stop: 08/12/22 19:42 Docusate Sodium (Docusate Sodium 100 Mg Cap) 100 mg PO BID [facility] Stop: 08/12/22 20:59 Last Admin: 07/14/22 08:44 Dose: 100 mg Hydrochlorothiazide (Hydrochlorothiazide 25 Mg Tab) [facility] [place]: 08/13/22 08:59 Last Admin: 07/14/22 08:44 Dose: 25 mg Hydromorphone HCl (Hydromorphone Inj 0.5 Mg/0.5 Ml Syr) 0.5 mg IV Q4H PRN PRN Reason: Pain or Pre PT Stop: 07/27/22 19:38 Lisinopril (Lisinopril 40 Mg Tab) 40 mg PO [facility] Stop: 08/13/22 08:59 Last Admin: 07/14/22 08:44 Dose: 40 mg Loratadine (Loratadine 10 Mg Tab) 10 mg PO DAILY PRN PRN Reason: Congestion Stop: 08/12/22 19:38 Magnesium Hydroxide (Magnesium Hydroxide Susp 30 Ml Udc) 30 ml PO Q6H PRN PRN Reason: Constipation Stop: 08/12/22 19:38 Metoclopramide HCl (Metoclopramide Hcl Inj 5 Mg/Ml 2 Ml Vial) 10 mg IV Q6H PRN PRN Reason: Nausea And Vomiting Stop: 08/12/22 19:38 Metoprolol Succinate (Metoprolol Succ 25mg Ext Rel Tab) 25 mg PO [facility] Stop: 08/13/22 08:59 Last Admin: 07/14/22 08:43 Dose: 25 mg Miscellaneous (Order Awaiting Action [Betamethasone Dipropionate 0.05 % Cream]) 1 each N/A QS [facility] Stop: 08/13/22 00:00 Last Admin: 07/14/22 07:07 Dose: Not Given Multivitamins (Multivitamin Tab) 1 tab PO QAM [facility] Stop: 08/13/22 08:59 Last Admin: 07/14/22 08:44 Dose: 1 tab Naloxone HCl (Naloxone Hcl 0.4 Mg/1 Ml Vial/Carp) 0.1 mg IV Q5M PRN PRN Reason: Oversedation/Resp Depression Stop: 08/12/22 19:38 Ondansetron HCl (Ondansetron Inj 2 Mg/Ml 2 Ml Vial) 4 mg IV Q6H PRN PRN Reason: Nausea And Vomiting Stop: 08/12/22 19:38 Oxycodone HCl (Oxycodone Hcl Ir 5 Mg Tab (Immediate Release)) 5 - 10 mg PO Q4H PRN PRN Reason: Pain or Pre PT Stop: 07/27/22 19:38 Polyethylene Glycol (Polyethylene (Miralax) 17 Gm Pack) 17 gm PO DAILY PRN PRN Reason: constipation Stop: 08/12/22 19:38 Sennosides (Senna 8.6 Mg Tab) 17.2 mg PO HS [facility] Stop: 08/12/22 20:59 Last Admin: 07/13/22 21:08 Dose: 17.2 mg Trimethoprim/Sulfamethoxazole (Sulfamethoxazole/Trimethoprim Ds 800/160mg Tab) 1 tab PO Q12 [facility] Stop: 07/16/22 08:59 Last Admin: 07/14/22 08:44 Dose: 1 tab
--- NOTE | 2022-07-14 10:45 | Orthopedic Progress Note ---
Date of Service July 14, 2022 Assessment & Plan (1) Primary osteoarthritis, right shoulder: Plan: Postop day 1 status post right total shoulder arthroplasty PT/OT protocols. Nonweightbearing right upper extremity. DVT prophylaxis-aspirin p.o. daily, SCDs. Pain management as written. DC planning-patient will not be going through any organized physical therapy for 2 weeks until seen back in the office. Planning for discharge to home. Admission and Anticipated Discharge Date Admission Date: July 13, 2022 Subjective Postop day 1 Patient sitting in her chair at the bedside. No complaints this morning. Pain is controlled. Denies shortness of breath, chest pain, lightheadedness. Physical Exam Physical Exam: Dressings are clean, dry, and intact. She has good range of motion of her right wrist and fingers. She has continued numbness in her right thumb. Mild tingling in her other fingers. Capillary refill is less than 2 seconds. Sling is in place Results & Data ([facility]) Vital Signs (Past 12 Hours) Vital Signs Temp Pulse Resp BP Pulse Ox O2 Del Method 07/14/22 07:52 36.8 C 65 18 121/73 95 Room Air 07/14/22 03:11 36.4 C L 75 18 124/62 95 Room Air Laboratory Results Laboratory Results WBC 10.02 K/ul (4.8-10.8) 07/14/22 07:36 RBC 3.67 M/uL (3.93-5.22) L 07/14/22 07:36 Hgb 11.0 g/dl (12.0-16.0) L 07/14/22 07:36 Hct 33.2 % (34.1-44.9) L 07/14/22 07:36 MCV 90.5 fL (80.0-100.0) 07/14/22 07:36 MCH 30.0 pg (25.0-34.0) 07/14/22 07:36 MCHC 33.1 g/dL (32.0-36.0) 07/14/22 07:36 RDW Std Deviation 40.7 fL (36.4-46.3) 07/14/22 07:36 RDW Coeff of Suyapa 12.3 % (11.5-14.5) 07/14/22 07:36 Plt Count 146 K/uL (130-400) 07/14/22 07:36 MPV 9.6 fL (9.4-12.3) 07/14/22 07:36 Immature Gran % (Auto) 0.3 % 07/14/22 07:36 Neut % (Auto) 84.8 % 07/14/22 07:36 Lymph % (Auto) 7.4 % 07/14/22 07:36 Stanley % (Auto) 7.4 % 07/14/22 07:36 Eos % (Auto) 0.0 % 07/14/22 07:36 Baso % (Auto) 0.1 % 07/14/22 07:36 Neut # (Auto) 8.50 K/uL (1.4-6.5) H 07/14/22 07:36 Lymph # (Auto) 0.74 K/uL (1.2-3.4) L 07/14/22 07:36 Stanley # (Auto) 0.74 K/uL (0.24-0.82) 07/14/22 07:36 Eos # (Auto) 0.00 K/uL (0-0.50) 07/14/22 07:36 Baso # (Auto) 0.01 K/uL (0-0.2) 07/14/22 07:36 Immature Gran # (Auto) 0.03 K/uL (0.00-0.02) H 07/14/22 07:36 Sodium 136 mmol/L (136-145) 07/14/22 07:36 Potassium 4.1 mmol/L (3.5-5.1) 07/14/22 07:36 Chloride 105 mmol/L (98-107) 07/14/22 07:36 Carbon Dioxide 24 mmol/L (21-32) 07/14/22 07:36 Anion Gap 7 (3-11) 07/14/22 07:36 BUN 20 mg/dl (6-23) 07/14/22 07:36 Creatinine 0.81 mg/dl (0.6-1.2) 07/14/22 07:36 Est Cr Clr Drug Dosing 60.5 ml/min 07/14/22 07:36 Est GFR ( Amer) 80.6 ml/min 07/14/22 07:36 Est GFR (Non-Af Amer) 69.6 ml/min 07/14/22 07:36 BUN/Creatinine Ratio 24.7 (10-20) H 07/14/22 07:36 Glucose 149 mg/dl (70-99(Fasting)) H 07/14/22 07:36 Calcium 8.2 mg/dl (8.5-10.1) L 07/14/22 07:36 SARS-CoV-2, RNA, NAAT NEGATIVE (NEGATIVE) 07/13/22 10:05 Impressions Shoulder X-Ray 07/13/22 16:17 XR shoulder RT min 2V routine CLINICAL HISTORY: Post shoulder surgery TECHNIQUE: 3 views of the right shoulder were obtained. Comparison: None available at the time of this dictation. FINDINGS: Patient is status post shoulder arthroplasty with expected postsurgical changes including soft tissue swelling and subcutaneous emphysema. No periarticular lucency or hardware fracture is seen. There is pulmonary vascular congestion and suggestion of cardiomegaly. IMPRESSION: Expected postoperative appearance status post placement of shoulder arthroplasty. ACT 112: Negative or not required by law. Electronically signed by: Brian Mendez M.D. 07/13/2022 4:41 PM
--- NOTE | 2022-07-18 18:12 | Discharge Summary ---
Date of Service July 18, 2022 Admission HPI Per Admitting Provider 77 year old female with PMHx significant for HTN, high cholesterol, lymphedema, hx of infected total knee who presents with ongoing right shoulder pain. Pain is interfering with her daily activities. She has failed conservative measures and would like to proceed with surgical intervention. Patient denies headaches, sweats, fevers, chills, double vision, blurred vision, cough, sore throat, dysphagia, chest pain, sob, wheezing, n/v/d/c, numbness, tingling, fatigue, urinary symptoms, mood disorders. ROS positive for right shoulder pain and stiffness. Admission Exam Per Admitting Provider Constitutional: well developed and well nourished; no acute distress Eyes: PERRL, conjunctivae normal, anicteric sclerae ENMT: external ear and nose normal, oropharynx normal Neck: trachea midline, no thyromegaly Respiratory: normal respiratory effort, lungs clear to auscultation Cardiovascular: RRR, no murmur, no edema Musculoskeletal: Right shoulder: Crepitation and pain with ROM. Diffuse tenderness. Negative impingement signs. Abduction to 80 degrees, FF to 80 degrees actively, ER to 30 degrees. Strength equal bilaterally. Skin: no rashes, warm and dry Neurologic: patellar DTR's 2+ bilat, sensation intact Psychiatric: A+Ox3, euthymic affect Principal Diagnosis Right shoulder osteoarthritis Discharge Exam Dressings are clean, dry, and intact. She has good range of motion of her right wrist and fingers. She has continued numbness in her right thumb. Mild tingling in her other fingers. Capillary refill is less than 2 seconds. Sling is in place Constitutional well developed and well nourished; no acute distress Discharge Data Allergies Allergy/AdvReac Type Severity Reaction Status Date / Time cephalexin Allergy Intermediate Itchiness, Verified 07/13/22 10:31 rash Cephalosporins Allergy Itchiness, Verified 07/13/22 10:31 rash Consultations 07/08/22 16:48 Consult Hospitalist Routine Procedures Performed Operation Date: 07/13/22 12:15 Actual Procedures p Right Total Shoulder Arthroplasty(Right) - Nnamdi Zhu MD Ordered Studies 07/13/22 05:00 US - OR guided needle placemen Routine Hospital Course (1) Primary osteoarthritis, right shoulder: Postop day 1 status post right total shoulder arthroplasty PT/OT protocols. Nonweightbearing right upper extremity. DVT prophylaxis-aspirin p.o. daily, SCDs. Pain management as written. DC planning-patient will not be going through any organized physical therapy for 2 weeks until seen back in the office. Planning for discharge to home. Lab Results 07/13/22 07/14/22 07/14/22 Range/Units 10:05 07:36 07:36 WBC 10.02 (4.8-10.8) K/ul RBC 3.67 L (3.93-5.22) M/uL Hgb 11.0 L (12.0-16.0) g/dl Hct 33.2 L (34.1-44.9) % MCV 90.5 (80.0-100.0) fL MCH 30.0 (25.0-34.0) pg MCHC 33.1 (32.0-36.0) g/dL RDW Std Deviation 40.7 (36.4-46.3) fL RDW Coeff of Suyapa 12.3 (11.5-14.5) % Plt Count 146 (130-400) K/uL MPV 9.6 (9.4-12.3) fL Immature Gran % (Auto) 0.3 % Neut % (Auto) 84.8 % Lymph % (Auto) 7.4 % Sierra % (Auto) 7.4 % Eos % (Auto) 0.0 % Baso % (Auto) 0.1 % Neut # (Auto) 8.50 H (1.4-6.5) K/uL Lymph # (Auto) 0.74 L (1.2-3.4) K/uL Sierra # (Auto) 0.74 (0.24-0.82) K/uL Eos # (Auto) 0.00 (0-0.50) K/uL Baso # (Auto) 0.01 (0-0.2) K/uL Immature Gran # (Auto) 0.03 H (0.00-0.02) K/uL Sodium 136 (136-145) mmol/L Potassium 4.1 (3.5-5.1) mmol/L Chloride 105 (98-107) mmol/L Carbon Dioxide 24 (21-32) mmol/L Anion Gap 7 (3-11) BUN 20 (6-23) mg/dl Creatinine 0.81 (0.6-1.2) mg/dl Est Cr Clr Drug Dosing 60.5 ml/min Est GFR ( Amer) 80.6 ml/min Est GFR (Non-Af Amer) 69.6 ml/min BUN/Creatinine Ratio 24.7 H (10-20) Glucose 149 H (70-99(Fasting)) mg/dl Calcium 8.2 L (8.5-10.1) mg/dl SARS-CoV-2, RNA, NAAT NEGATIVE (NEGATIVE) Total Time Total Time Spent Total Time Spent (In Minutes): 20 Discharge Plan Discharge Items Patient Disposition: Home - Home Health Services Reason For Visit: Osteoarthritis Right Shoulder Discharge Diagnosis: Osteoarthritis right shoulder Activity: Per Instructions section Weightbearing: Right non-weightbearing Non-emergency contact: Surgeon Call non-emergency contact if: you have any medication questions, your pain is not controlled, your temperature is above 101.5, your wound has increased redness and your wound has increased drainage Follow-up/Referrals: Tia Hogan PA-C [Primary Care Provider] - Nnamdi Zhu MD [Surgeon] - (Follow-up with Dr. Zhu in 2 weeks from the day of your surgery for your first postoperative visit.) Diet: Regular Addtl Attending Provider Instructions: ACTIVITY RECOMMENDATIONS: SELF CARE INSTRUCTIONS AFTER TOTAL SHOULDER ARTHROPLASTY A. You may do daily exercises as taught in physical therapy while in hospital. No lifting with the operative arm. NO PHYSICAL THERAPY FOR TWO WEEKS. YOU WILL START YOUR PT AFTER YOUR ARE SEEN IN THE OFFICE FOR YOUR FIRST POST OPERATIVE VISIT. B. You are to wear your sling/immobilizer at all times EXCEPT when performing your daily exercises, participating in physical therapy and for hygiene purposes. C. You may perform dry, daily dressing changes. Please keep your incision covered. You may shower 48 hours after surgery. Do not apply soap or any ointment/lotions directly over incision. Do not soak incision in bath tub/swimming pool. D. You may use ice as needed to operative shoulder. SPECIAL CARE INSTRUCTIONS: MEDICATION INSTRUCTIONS: *It is recommended you take Aspirin 81mg daily for four weeks post-op. VERY IMPORTANT TO READ AND REVIEW A. There are a few signs you need to watch for after you are home. Call [facility] [place] at [phone] if you experience any of the followin. Increased severe shoulder pain. Some pain is expected especially when you exercise. 2. Increased swelling in you shoulder or arm; pain or swelling in either upper extremity. 3. Any fluid drainage from the incision. 4. Shortness of breath or chest pain. B. Please call [facility] at [phone] if you have any questions or concerns about your operation or recovery. C. Call your physician if: 1. Temperature is greater than 101 degrees (F). 2. Pain is not relieved by prescribed pain medications. 3. Increase drainage or redness from incision. 4. Unanswered questions or concerns. FOLLOW UP VISIT: Please call [facility] at [phone] to schedule a follow up appointment with Dr. Zhu or his PA in 12-14 days from your surgery date. Stand-Alone Forms: My [place], Smoking Cessation Medications and DC Order Prescriptions: New acetaminophen [Tylenol Extra Strength] 500 mg Tablet 1,000 mg PO Q8 14 Days Qty: 84 0RF sulfamethoxazole-trimethoprim [Bactrim DS] 800-160 mg tablet 1 tab PO Q12H 14 Days Qty: 28 0RF oxycodone 5 mg tablet 5 mg PO Q4H MDD 6 PRN (Reason: pain) Qty: 30 0RF Continued multivitamin Tablet 1 tab PO QAM betamethasone dipropionate 0.05 % Cream 1 applic TOPICAL DIRECTED PRN (Reason: Skin Irritation) metoprolol succinate 25 mg tablet extended release 24 hr 25 mg PO QAM clobetasol 0.05 % Ointment 1 applic TOPICAL DIRECTED PRN (Reason: Skin Irritation) lisinopril 40 mg tablet 40 mg PO QAM loratadine 10 mg Tablet 10 mg PO DAILY PRN (Reason: Congestion) Clear Eyes Natural Tears 0.5-0.6 % Drops 1 drp OPHTHALMIC (EYE) DIRECTED PRN (Reason: Dry Eyes) biotin 1 mg Tablet 1 mg PO QAM aspirin 81 mg Tablet,Delayed Release (Dr/Ec) 81 mg PO QAM polyethylene glycol 3350 [Miralax] 17 gram Powder In Packet 17 g PO DAILY PRN (Reason: constipation) Qty: 30 0RF atorvastatin 20 mg Tablet 20 mg PO PM amlodipine 5 mg Tablet 5 mg PO QAM hydrochlorothiazide 50 mg tablet 25 mg PO QAM Discontinued acetaminophen 325 mg Tablet 650 mg PO Q4H PRN (Reason: fever or pain) Qty: 60 0RF Discharge Orders: Discharge Order (Routine); Ordered 07/14/22 Ordered By: Rene Liriano Admission Data Admit Date/Time: 07/13/22 16:17 Attending Provider: Nnamdi Zhu Admit Provider: Nnamdi Zhu Primary Care Provider: Tia Hogan Other Providers: Kenny Damian ; Faby Marks ; Shanda Arias ; [facility] Other Interventions: Discharge Summary Assessment (RN) Last Done: 07/14/22 14:25
== END 2022-07-14 17:07 | disposition home health service (06) | DRG 483 ==
LOC: ASU 10:03 → 3N 16:17

== ENCOUNTER 2025-08-31 11:06 | Inpatient (IN) ==
--- NOTE | 2025-08-31 11:23 | Emergency Department Note ---
History of Present Illness General Chief complaint: Diarrhea Stated complaint: DIARRHEA, BLOOD IN STOOL Time Seen by Provider: 08/31/25 11:20 History of Present Illness This is an 80-year-old female that presents to the emergency department via private vehicle with complaint of "diarrhea, blood in stool". The patient notes this past Wednesday and she began with some diarrhea. This was accompanied by lower abdominal discomfort and low back pain. She states that there was a small amount of blood in the diarrhea morning but since then has progressed to predominantly bright red blood per rectum. She denies any close contacts with similar symptoms. Initially had chills but that has resolved. No fever. No nausea. No vomiting. She does take low-dose aspirin daily. No anticoagulant use. She does have a well on the property she uses for water but denies any recent or known issues. No dizziness or lightheadedness. Home Medications Medication Instructions Recorded Confirmed Type betamethasone dipropionate 0.05 % 1 applic topical DIRECTED PRN 04/26/20 08/31/25 History topical cream Skin Irritation clobetasol 0.05 % topical ointment 1 applic topical DIRECTED PRN 04/26/20 08/31/25 History Skin Irritation lisinopril 40 mg tablet 40 mg PO [facility] 04/26/20 08/31/25 History loratadine 10 mg tablet 10 mg PO DAILY PRN Congestion 04/26/20 08/31/25 History metoprolol succinate 25 mg 25 mg PO [facility] 04/26/20 08/31/25 History tablet,extended release 24 hr multivitamin 1 tab PO [facility] 04/26/20 08/31/25 History polyvinyl alcohol-povidone 0.5 1 drp ophthalmic (eye) DIRECTED 04/26/20 08/31/25 History %-0.6 % eye drops (Clear Eyes PRN Dry Eyes Natural Tears) aspirin 81 mg tablet,delayed 81 mg PO [facility] 04/29/21 08/31/25 History release biotin 1 mg tablet 1 mg PO QAM 04/29/21 08/31/25 History amlodipine 5 mg tablet 5 mg PO QA 05/01/22 08/31/25 History atorvastatin 20 mg tablet 20 mg PO PM 05/01/22 08/31/25 History hydrochlorothiazide 50 mg tablet 25 mg PO QA 05/01/22 08/31/25 History hydrocortisone 2.5 % topical cream 1 applic topical UD PRN Other 08/31/25 08/31/25 History nystatin 100,000 unit/gram topical 1 applic topical UD PRN Other 08/31/25 08/31/25 History powder oxybutynin chloride 10 mg 10 mg PO QAM 08/31/25 08/31/25 History tablet,extended release 24 hr risankizumab-rzaa 150 mg/mL 150 mg subcut UD 08/31/25 08/31/25 History subcutaneous pen injector (Skyrizi) Allergies Allergy/AdvReac Type Severity Reaction Status Date / Time cephalexin Allergy Intermediate Itchiness, Verified 07/13/22 10:31 rash Cephalosporins Allergy Itchiness, Verified 07/13/22 10:31 rash Past Med/Surg History Problem List (Updated 09/01/25 @ 02:14 by Kali Palomo PA-C) Bloody stools (Acute) Low back pain (Acute) Acute generalized abdominal pain (Acute) Colitis (Acute) Acute ischemic colitis CKD (chronic kidney disease) stage 3, GFR 30-59 ml/min Pre-diabetes Anemia Primary osteoarthritis, right shoulder Psoriasis (Chronic) Cervical stenosis of spinal canal Cellulitis of left leg Infection of total left knee replacement Encounter for pre-operative examination Cellulitis (Acute) HTN (hypertension) (Chronic) HLD (hyperlipidemia) (Chronic) Lymphedema Medical History Morbid obesity Psoriasis Osteoarthritis Surgical History H/O left knee surgery left knee revision d/t infection (2020 at [facility]) History of cataract surgery R/L (done [place] at [facility] [place] [facility] [place] History of colonoscopy History of cervical spinal surgery x2 History of appendectomy History of knee replacement procedure of right knee History of knee replacement procedure of left knee H/O vaginal hysterectomy H/O dilation and curettage Family History Other Heart disease Lung disease No family history of adverse response to anesthesia Stroke Social History Smoking Status: Never smoker Second Hand Exposure: No; Do You Dip or Chew Tobacco: No; Hx Alcohol Use: No Hx Substance Use: No Preferred Language: Lao Communication Ability: Effective Mine Safety Manager Required: No Beliefs That Will Affect Care: None marital status: / Current Living Situation: Alone Current Living Situation Comment: lives alone in a 2 story home Feels Safe at Home: Yes Safety Concerns: Feels Safe At This Time Assistive Devices: Cane and Glasses Review of Systems A total of 10 systems reviewed and were otherwise negative Physical Exam Vital Signs Vital Signs - 24 hr 08/31/25 11:13 08/31/25 11:45 08/31/25 11:45 Temperature 36.6 C Temperature Source Temporal Artery Scan Pulse Rate 73 63 Pulse Rate [Finger] 63 Respiratory Rate 18 16 16 Respiratory Effort / Characteristics Non-Labored Spontaneous Respiratory Depth Normal Respiratory Pattern Regular Blood Pressure [Left Arm] 126/64 Blood Pressure Mean [Left Arm] 84 Pulse Oximetry 94 98 98 Oxygen Delivery Method Room Air Room Air Room Air Sepsis Recent Fever Within 48 Hours No Sepsis New/Unexplained Change in Mental Status No Sepsis Action Taken by Nursing No Action Required 08/31/25 12:17 08/31/25 13:00 Temperature Temperature Source Pulse Rate 79 Pulse Rate [Finger] 79 Respiratory Rate 16 Respiratory Effort / Characteristics Respiratory Depth Respiratory Pattern Blood Pressure [Left Arm] 114/64 Blood Pressure Mean [Left Arm] 80 Pulse Oximetry 95 Oxygen Delivery Method Room Air Sepsis Recent Fever Within 48 Hours Sepsis New/Unexplained Change in Mental Status Sepsis Action Taken by Nursing VITAL SIGNS - Vital signs and nursing notes were reviewed. Stable and afebrile. GENERAL -80-year-old female appearing her stated age who is in no acute distress. Communicates well with provider and answers questions appropriately. SKIN - Without rashes. No meningeal or petechial rash. HEAD - NC/AT. EYES - PERRL with EOMI bilaterally. Sclera anicteric. EARS - No deformities of external structures noted on gross examination bilaterally. NOSE - Midline and without cyanosis. No epistaxis or purulent drainage noted. MOUTH/OROPHARYNX - Without perioral cyanosis. NECK - Neck with FROM. No nuchal rigidity. LUNGS - CTA CARDIAC - RRR ABDOMEN - Abdominal contour normal without pulsations or visible masses. BS normoactive all four quadrants. No tenderness, palpable masses, hepatosplenomegaly, or ascites noted. EXTREMITIES - No clubbing or peripheral cyanosis. +5/5 strength noted in UE/LE bilaterally. NEUROLOGIC - Cranial nerves II through XII grossly intact. PSYCH: Alert, oriented and pleasant on exam Course Administered Medications Acetaminophen (Acetaminophen 325 Mg Tab) 650 mg PO Q4H PRN PRN Reason: Pain or Fever Stop: 09/30/25 15:15 Last Admin: 09/01/25 01:57 Dose: 650 mg Documented By: Admin: 08/31/25 19:29 Dose: 650 mg Documented By: RAKESH Atorvastatin Calcium (Atorvastatin 20 Mg Tab) 20 mg PO PM NEFTALY Stop: 09/30/25 20:59 Last Admin: 08/31/25 19:53 Dose: 20 mg Documented By: RAKESH Sodium Chloride (Nss) 1,000 mls @ 100 mls/hr IV .Q10H NEFTALY Stop: 09/01/25 10:14 Last Admin: 09/01/25 01:54 Dose: 100 mls/hr Documented By: Infusion: 09/01/25 01:45 Dose: Infused Documented By: Admin: 08/31/25 15:45 Dose: 100 mls/hr Documented By: Discontinued Medications Sodium Chloride (Nss) 500 mls @ 125 mls/hr IV .Q4H ONE Stop: 08/31/25 16:26 Last Infusion: 08/31/25 15:40 Dose: Infused Documented By: Admin: 08/31/25 12:39 Dose: 125 mls/hr Documented By: sonny Ioversol (Optiray 320 100ml) 94 ml IV ONCE ONE Stop: 08/31/25 12:50 Last Admin: 08/31/25 12:49 Dose: 94 ml Documented By: NUBIA Medical Decision Making Laboratory Data 08/31/25 11:35 08/31/25 11:35 Lab Results 08/31/25 08/31/25 08/31/25 Range/Units 11:35 11:43 12:02 WBC 11.67 H (4.8-10.8) K/ul RBC 4.38 (4.20-5.40) M/uL Hgb 13.5 (12.0-16.0) g/dl Hct 39.0 (37.0-47.0) % MCV 89.0 (80.0-100.0) fL MCH 30.8 (25.0-34.0) pg MCHC 34.6 (32.0-36.0) g/dL RDW Std Deviation 40.2 (36.4-46.3) fL RDW Coeff of [place] 12.4 (11.5-14.5) % Plt Count 182 (130-400) K/uL MPV 10.1 (9.4-12.4) fL Immature Gran % (Auto) 0.3 % Neut % (Auto) 77.2 % Lymph % (Auto) 12.5 % [place] % (Auto) 8.2 % Eos % (Auto) 1.5 % Baso % (Auto) 0.3 % Neut # (Auto) 9.01 H (1.40-6.50) K/uL Lymph # (Auto) 1.46 (1.20-3.40) K/uL [place] # (Auto) 0.96 H (0.11-0.59) K/uL Eos # (Auto) 0.17 (0.00-0.50) K/uL Baso # (Auto) 0.03 (0.00-0.20) K/uL Immature Gran # (Auto) 0.04 (0.01-0.20) K/uL PT 10.9 (9.0-12.0) Seconds INR 1.0 (0.9-1.1) APTT 28 (21-31) Seconds PTT Ratio 1.0 Sodium 136 (136-145) mmol/L Potassium 3.7 (3.5-5.1) mmol/L Chloride 101 (98-107) mmol/L Carbon Dioxide 25 (21-32) mmol/L Anion Gap 10 (3-11) BUN 39 H (6-23) mg/dl Creatinine 1.57 H (0.6-1.2) mg/dl Est Cr Clr Drug Dosing 28.8 ml/min eGFR 32.94 BUN/Creatinine Ratio 24.8 H (10-20) Glucose 136 H (70-99(Fasting)) mg/dl Lactate 1.2 (0.4-2.0) mmol/L Calcium 8.8 (8.6-10.3) mg/dl Magnesium 2.1 (1.7-2.4) mg/dl Total Bilirubin 1.9 H (0.2-1.0) mg/dl AST 19 (13-39) U/L ALT 12 (7-52) U/L Alkaline Phosphatase 69 (34-104) U/L Total Protein 6.6 (6.0-8.3) gm/dl Albumin 3.6 (3.4-5.0) gm/dl Globulin 3.0 (2.5-4.0) gm/dl Albumin/Globulin Ratio 1.2 (0.9-2) Blood Type B Positive Antibody Screen NEGATIVE Imaging Data Radiologist's Impression: Abdomen/Pelvis CT 08/31/25 11:37 CT SCAN OF THE ABDOMEN AND PELVIS WITH IV CONTRAST CLINICAL HISTORY: Lower abdominal and back pain. Blood in stool. COMPARISON STUDY: CT of the abdomen and pelvis April 26, 2020. TECHNIQUE: Following the IV administration of 94 cc of Optiray 320, CT scan of the abdomen and pelvis is performed from the lung bases to the proximal femora. Images are reviewed in the axial, sagittal, and coronal planes. IV contrast was administered without complication. A dose lowering technique was utilized adhering to the principles of ALARA. CT DOSE: 1320.32 mGy.cm FINDINGS: Cardiomegaly is noted. A moderate sized hiatal hernia is incidentally noted. There is no pneumatosis, free air or portal venous gas. Liver, spleen, adrenal glands, kidneys and pancreas are unremarkable. There is no biliary or pancreatic ductal dilatation. No peripancreatic or pericholecystic infiltration is present. There is colonic diverticulosis without evidence for acute diverticulitis. Moderate circumferential wall thickening of the splenic flexure of the colon, descending colon and proximal to mid sigmoid colon is noted. There is pericolonic stranding and a small amount of fluid. No extraluminal gas is present. There are no fluid collections. IMPRESSION: 1. Moderate left colon wall thickening with pericolonic stranding consistent with a colitis. Although nonspecific, this distribution raises the possibility of ischemic colitis. 2. No bowel obstruction. 3. Colonic diverticulosis. No evidence for acute diverticulitis. ACT 112: Negative or not required by law. Electronically signed by: Shola Maciel M.D. 08/31/2025 1:07 PM MDM Narrative Patient was seen and evaluated as above in room A04. Review was performed of triage nursing notes and vital signs. I did review pertinent previous visits and patient history. After obtaining a thorough history and physical examination the above work up was performed. Patient presents to us today for evaluation of bloody stool. She does have some generalized abdominal discomfort and back pain as well. EKG per my interpretation reveals normal sinus rhythm at a rate of 82 bpm. QTc 427. QRS 88. No ST elevation on this rhythm tracing. Options of care were discussed with the patient. IV access was established. IV fluids ordered. Labs were drawn. There is leukocytosis 11.67. There is no concerning anemia. Coags are normal. There is evidence of NURY with creatinine 1.57 and BUN at 39. Glucose 136. T. bili 1.9. I do believe that a contrasted CT scan of the abdomen/pelvis is warranted. It is felt that the benefit outweighed risk at this time to further assess the patient's abdominal discomfort, back pain and bloody stool. CT scan results as above. Moderate left colon wall thickening with pericolonic stranding consistent with a colitis. Although nonspecific, distribution raises possibility of ischemic colitis per radiologist. No bowel obstruction. Diverticulosis noted. No diverticulitis. I will note that a lactate level was drawn and returned within normal range. Stool panel and C. difficile testing ordered. At this time I do recommend further evaluation and management in the inpatient setting. Case discussed with the hospitalist service. Please refer to the documentation regarding her stay. In the evaluation and treatment of this patient the following differential diagnoses were entertained: Bowel obstruction, UTI, pyelonephritis, colitis, among others Impression & Plan Colitis, Acute generalized abdominal pain, Low back pain, Bloody stools Discharge Plan Visit Data Chief Complaint: Diarrhea Stated Complaint: DIARRHEA, BLOOD IN STOOL ED Provider: Carlos Rivera ED Midlevel Provider: Kali Palomo Discharge Problem: Colitis, Acute generalized abdominal pain, Low back pain, Bloody stools Patient Disposition: Admitted As Inpatient Condition: Good Discharge Instructions Interventions: ED Discharge Assessment Last Done: 08/31/25 15:07
[2025-08-31 12:04] LABS: Hematocrit (blood only) 39.0 % (37.0-47.0); Hemoglobin 13.5 g/dl (12.0-16.0); Immature Granulocytes # (auto) 0.04 K/uL (0.01-0.20); Immature Granulocytes % (auto) 0.3 %; Mean Corpuscular Hemoglobin 30.8 pg (25.0-34.0); Mean Corpuscular Volume 89.0 fL (80.0-100.0); Platelet Count 182 K/uL (130-400); RDW Standard Deviation 40.2 fL (36.4-46.3); Red Blood Count 4.38 M/uL (4.20-5.40); White Blood Count 11.67 K/ul (4.8-10.8)
[2025-08-31 12:16] LABS: Alanine Aminotransferase 12.0 U/L (7-52); Albumin Globulin Ratio 1.2 (0.9-2); Albumin Level 3.6 gm/dl (3.4-5.0); Alkaline Phosphatase 69.0 U/L (34-104); Anion Gap 10.0 (3-11); Bilirubin,Total 1.9 mg/dl (0.2-1.0); Blood Urea Nitrogen 39.0 mg/dl (6-23); Calcium 8.8 mg/dl (8.6-10.3); Carbon Dioxide 25.0 mmol/L (21-32); Chloride 101.0 mmol/L (98-107); Creatinine Clr Calc Pharmacy 28.8 ml/min; Globulin 3.0 gm/dl (2.5-4.0); Glucose 136.0 mg/dl (70-99(Fasting)); Magnesium 2.1 mg/dl (1.7-2.4); Potassium 3.7 mmol/L (3.5-5.1); Sodium 136.0 mmol/L (136-145); Total Protein 6.6 gm/dl (6.0-8.3)
--- NOTE | 2025-08-31 12:25 | Emergency Department Note ---
ED Visit Note I was consulted by the Advanced Practice Provider. I personally made/approved the management plan and take responsibility for the patient management. I performed a substantive portion of the visit. This includes the aspects of: The patient presents with ongoing diarrhea. There was a leukocytosis on her laboratory testing. CT imaging shows colitis. Given the findings, admission, further workup/care was warranted. The on-call hospitalist was consulted. .
[2025-08-31] MEDS: SODIUM CHLORIDE 0.9% 500 ML IV ONE (12:39)
[2025-08-31] MEDS: OPTIRAY 320 100ml IV ONE (12:49)
--- NOTE | 2025-08-31 13:08 | CT Scan Report ---
CT SCAN OF THE ABDOMEN AND PELVIS WITH IV CONTRAST CLINICAL HISTORY: Lower abdominal and back pain. Blood in stool. COMPARISON STUDY: CT of the abdomen and pelvis April 26, 2020. TECHNIQUE: Following the IV administration of 94 cc of Optiray 320, CT scan of the abdomen and pelvi s is performed from the lung bases to the proximal femora. Images are reviewed in the axial, sagittal , and coronal planes. IV contrast was administered without complication. A dose lowering technique wa s utilized adhering to the principles of ALARA. CT DOSE: 1320.32 mGy.cm FINDINGS: Cardiomegaly is noted. A moderate sized hiatal hernia is incidentally noted. There is no pn eumatosis, free air or portal venous gas. Liver, spleen, adrenal glands, kidneys and pancreas are unr emarkable. There is no biliary or pancreatic ductal dilatation. No peripancreatic or pericholecystic infiltration is present. There is colonic diverticulosis without evidence for acute diverticulitis. M oderate circumferential wall thickening of the splenic flexure of the colon, descending colon and pro ximal to mid sigmoid colon is noted. There is pericolonic stranding and a small amount of fluid. No e xtraluminal gas is present. There are no fluid collections. IMPRESSION: 1. Moderate left colon wall thickening with pericolonic stranding consistent with a colitis. Although nonspecific, this distribution raises the possibility of ischemic colitis. 2. No bowel obstruction. 3. Colonic diverticulosis. No evidence for acute diverticulitis. ACT 112: Negative or not required by law. Electronically signed by: Shola Maciel M.D. 08/31/2025 1:07 PM
[2025-08-31 13:09] LABS: INR 1.0 (0.9-1.1); Partial Thromboplastin Time 28 Seconds (21-31); Prothrombin Time 10.9 Seconds (9.0-12.0)
--- NOTE | 2025-08-31 13:38 | History & Physical Report ---
Date of Service August 31, 2025 Assessment & Plan (1) Acute ischemic colitis: (2) HTN (hypertension): (3) HLD (hyperlipidemia): Plan Ms. Nielsen is an 80 year old female that presents to the ED with complaints of abdominal pain and BRBPR since . CTAP indicative of ischemic colitis. Gen sx and GI consults with lab trending. Hold nephrotoxic agents given NURY. #BRBPR: #Possible acute ischemic colitis: Does not take anticoagulation CTAP indicative of ischemic colitis; No indication of Mesenteric venous thrombosis 500 cc NSB given in ED; Hemoglobin 13.5; will trend Q6 x3 Type and Screen ordered; obtain consent Anemia panel ordered Lactate 1.2 Stool sample ordered General Surgery consult placed GI consult placed for colonoscopy consideration Clear liquids for now Hold on IV Abx for now given stability #HTN: Chronic Takes metoprolol, amlodipine, HCTZ; continue Takes Lisinopril; hold given NURY HLD: Most recent lipids in TC 140, HDL 20, LDL 50 Takes atorvastatin; continue #NURY: creatinine 1.57. Baseline 1.0, 05/2024 Hold Lisinopril and nephrotoxic agents gentle IVF; trend BMP Disposition: PCP: Tia Hogan PA-C Code Status: Full VTE Prophyalxis: Teds and SCDs for now I spent a total of 79 minutes coordinating, documenting, and providing care for this patient excluding time spent inthe performance of separately billed services or time spent by another provider/QHP. History of Present Illness Chief Complaint: BRBPR Primary Care Provider: Tia Hogan PA-C Ms. Nielsen is an 80 year old female that presented to the ED today with complaints of diarrhea, abdominal pain and lower back pain that started on Wednesday. On , she started to notice BRBPR with clots when she went to the bathroom with increased pain. Since here, her pain is more generalized abdominal tenderness. A CTAP was suggestive of acute ischemic colitis. She was given IV fluids in the ED which will continue. She has mild leukocytosis 11.6, lactic acid is 1.2, T. bili 1.9, no transaminitis, mild NURY 1.57; her baseline creatinine is 1.0. CTAP suggestive of ischemic colitis however no mesenteric venous thrombosis was noted. On examination she does not appear toxic and is hemodynamically stable. She denies headache, fever, chills, chest pain, dizziness, visual or auditory changes, recent falls or trauma. Denies tobacco, alcohol or recreational drug use. Patient will be admitted for further management of BRBPR and possible ischemic colitis . Blood consent obtained in ED. Will consult GI and general surgery for further recommendations. Hold on IV antibiotic for now given stability. Trend labs every 6 H&H and BMP in AM. Please see A/P for further details. Allergies Allergy/AdvReac Type Severity Reaction Status Date / Time cephalexin Allergy Intermediate Itchiness, Verified 07/13/22 10:31 rash Cephalosporins Allergy Itchiness, Verified 07/13/22 10:31 rash Home Medications Medication Instructions Recorded Confirmed Type betamethasone dipropionate 0.05 % 1 applic topical DIRECTED PRN 04/26/20 1 10/31/24 History topical cream Skin Irritation clobetasol 0.05 % topical ointment 1 applic topical DIRECTED PRN 04/26/20 08/31/25 History Skin Irritation lisinopril 40 mg tablet 40 mg PO QAM 04/26/20 08/31/25 History loratadine 10 mg tablet 10 mg PO DAILY PRN Congestion 04/26/20 08/31/25 History metoprolol succinate 25 mg 25 mg PO QAM 04/26/20 08/31/25 History tablet,extended release 24 hr multivitamin 1 tab PO QAM 04/26/20 08/31/25 History polyvinyl alcohol-povidone 0.5 1 drp ophthalmic (eye) DIRECTED 04/26/20 08/31/25 History %-0.6 % eye drops (Clear Eyes PRN Dry Eyes Natural Tears) aspirin 81 mg tablet,delayed 81 mg PO QAM 04/29/21 08/31/25 History release biotin 1 mg tablet 1 mg PO QAM 04/29/21 08/31/25 History amlodipine 5 mg tablet 5 mg PO QAM 05/01/22 08/31/25 History atorvastatin 20 mg tablet 20 mg PO PM 05/01/22 08/31/25 History hydrochlorothiazide 50 mg tablet 25 mg PO QAM 05/01/22 08/31/25 History hydrocortisone 2.5 % topical cream 1 applic topical UD PRN Other 08/31/25 08/31/25 History nystatin 100,000 unit/gram topical 1 applic topical UD PRN Other 08/31/25 08/31/25 History powder oxybutynin chloride 10 mg 10 mg PO QAM 08/31/25 08/31/25 History tablet,extended release 24 hr risankizumab-rzaa 150 mg/mL 150 mg subcut UD 08/31/25 08/31/25 History subcutaneous pen injector (Melissa) Past Med/Surg History Problem List Acute ischemic colitis CKD (chronic kidney disease) stage 3, GFR 30-59 ml/min Pre-diabetes Anemia Primary osteoarthritis, right shoulder Psoriasis (Chronic) Cervical stenosis of spinal canal Cellulitis of left leg Infection of total left knee replacement Encounter for pre-operative examination Cellulitis (Acute) HTN (hypertension) (Chronic) HLD (hyperlipidemia) (Chronic) Lymphedema Medical History Morbid obesity Psoriasis Osteoarthritis Surgical History H/O left knee surgery left knee revision d/t infection (2020 at [facility]) History of cataract surgery R/L (done 2021 at [facility] [place]) History of colonoscopy History of cervical spinal surgery x2 History of appendectomy History of knee replacement procedure of right knee History of knee replacement procedure of left knee H/O vaginal hysterectomy H/O dilation and curettage Family History Other Heart disease Lung disease No family history of adverse response to anesthesia Stroke Social History Smoking Status: Never smoker Second Hand Exposure: No; Do You Dip or Chew Tobacco: No; Hx Alcohol Use: No Hx Substance Use: No Preferred Language: Mosotho Communication Ability: Effective Pressurizer Required: No Beliefs That Will Affect Care: None marital status: / Current Living Situation: Alone Current Living Situation Comment: lives alone in a 2 story home Feels Safe at Home: Yes Safety Concerns: Feels Safe At This Time Assistive Devices: Cane and Glasses Review of Systems Review of Systems: Neuro: (-) Falls, trauma, slurred speech HEENT: (-) MALONE, dizziness, dysphagia, visual or auditory changes CV: (-) CP, palpitations, swelling Resp: (-) SOB GI: (-) appetite changes, N/V/D, bowel changes : (-) urinary changes Skin: (-) rashes Psych: (-) anxiety, depression Physical Exam Physical Exam: Neuro: AAOx4, PERRLA, no aphagia, memory changes, CNII-XII grossly intact HEENT: head normocephalic, moist mucus membranes CV: S1/S2, (-) M/G/R, (-) edema, cap refill < 3 seconds Resp: Lungs CTA in all mendez. On RA GI: Abdomen S/tender generalized/ND, Ax4 bowel sounds, (-) CVA tenderness Musculoskeletal: 5/5 B/L UE strength, 5/5 B/L LE strength. Uses a walker at baseline. (+) lymphedema left leg Skin: (-) rashes , (-) erythema. Psych: euthymic mood Results & Data Results & Data Vital Signs (Past 12 Hours) Vital Signs Temp Pulse Pulse Resp BP Pulse Ox O2 Del Method 08/31/25 12:17 79 08/31/25 11:45 63 16 98 Room Air 08/31/25 11:45 63 16 126/64 98 Room Air 08/31/25 11:13 36.6 C 73 18 94 Room Air Laboratory Results Short CBC 08/31/25 Range/Units 11:35 WBC 11.67 H (4.8-10.8) K/ul Hgb 13.5 (12.0-16.0) g/dl Hct 39.0 (37.0-47.0) % Plt Count 182 (130-400) K/uL BMP 08/31/25 11:35 Sodium 136 Potassium 3.7 Chloride 101 Carbon Dioxide 25 BUN 39 H Creatinine 1.57 H Glucose 136 H Calcium 8.8 Liver Function 08/31/25 Range/Units 11:35 Total Bilirubin 1.9 H (0.2-1.0) mg/dl AST 19 (13-39) U/L ALT 12 (7-52) U/L Alkaline Phosphatase 69 (34-104) U/L Albumin 3.6 (3.4-5.0) gm/dl Diagnostic Findings Abdomen/Pelvis CT 08/31/25 11:37 CT SCAN OF THE ABDOMEN AND PELVIS WITH IV CONTRAST CLINICAL HISTORY: Lower abdominal and back pain. Blood in stool. COMPARISON STUDY: CT of the abdomen and pelvis April 26, 2020. TECHNIQUE: Following the IV administration of 94 cc of Optiray 320, CT scan of the abdomen and pelvis is performed from the lung bases to the proximal femora. Images are reviewed in the axial, sagittal, and coronal planes. IV contrast was administered without complication. A dose lowering technique was utilized adhering to the principles of ALARA. CT DOSE: 1320.32 mGy.cm FINDINGS: Cardiomegaly is noted. A moderate sized hiatal hernia is incidentally noted. There is no pneumatosis, free air or portal venous gas. Liver, spleen, adrenal glands, kidneys and pancreas are unremarkable. There is no biliary or pancreatic ductal dilatation. No peripancreatic or pericholecystic infiltration is present. There is colonic diverticulosis without evidence for acute diverticulitis. Moderate circumferential wall thickening of the splenic flexure of the colon, descending colon and proximal to mid sigmoid colon is noted. There is pericolonic stranding and a small amount of fluid. No extraluminal gas is present. There are no fluid collections. IMPRESSION: 1. Moderate left colon wall thickening with pericolonic stranding consistent with a colitis. Although nonspecific, this distribution raises the possibility of ischemic colitis. 2. No bowel obstruction. 3. Colonic diverticulosis. No evidence for acute diverticulitis. ACT 112: Negative or not required by law. Electronically signed by: Shola Maciel M.D. 08/31/2025 1:07 PM Code Status & VTE Plan Code Status Full Code in the event of cardiac or respiratory arrest VTE Prophylaxis Plan VTE Prophylaxis will be ordered: Yes Supervising Physician Co-Signing Physician Notes Patient seen and examined at bedside. Daughter present. Has had bloody diarrhea for past few days, has not stopped, associated with some abdominal pain, never happened before. On exam, diffuse lower abdominal tenderness to palpation without peritoneal signs, 1+ non pitting edema in legs bilaterally. Imaging concerning for ischemic colitis without obvious mesenteric thrombus noted. Elevated leukocytosis suggetsive of inflammatory colitis, elevated creatinine in setting of diarrhea. Patient presenting with acute diarrhea in pattern suggestive of ischemic colitis without peritonitis. General surgery and GI consults, appreciate recs for consideration of colonoscopy. Trend Hgb. Clear liquids for now. Treat NURY with fluids, recheck BMP in AM. SCDs for DVT prophylaxis, hold blood thinners. Given hemodynamic stability and no sepsis, will hold on abx for now. I have seen and discussed the case with the collaborating advanced practitioner. I agree with the above H&P. I have reviewed and confirmed the patients medical history, the findings on physical examination, and the patients diagnosis and treatment plan with Kourtney BURRELL and agree with the information documented. I spent a total of 40 minutes coordinating, documenting, and providing care for this patient excluding time spent in the performance of separately billed services. All of the aforementioned completed outside of collaborating with the assigned advanced practitioner for a full treatment plan. I have reviewed the advanced practitioner's documentation, and I agree with, and take responsibility for the plan of care
--- NOTE | 2025-08-31 14:10 | Electrocardiogram Report ---
Test Reason : Blood Pressure : */* mmHG Vent. Rate : 82 BPM Atrial Rate : 82 BPM P-R Int : 208 ms QRS Dur : 88 ms QT Int : 366 ms P-R-T Axes : 77 -16 40 degrees QTcB Int : 427 ms Normal sinus rhythm Low voltage QRS Inferior infarct (cited on or before 17-Jul-2022) Poor R wave progression, consider anterior LA vs. lead placement vs. LVH Abnormal ECG When compared with ECG of 17-Jul-2022 12:23, Questionable change in initial forces of Anterior leads Confirmed by Nabeel Mora ([id number]) on 08/31/2025 2:10:26 PM Referred By: REFERRED SELF Confirmed By: Nabeel Mora
--- NOTE | 2025-08-31 14:48 | Surgery Consultation ---
Date of Consultation August 31, 2025 Assessment & Plan (1) Acute ischemic colitis: This is an 80yF with a PMH of pre-diabetes, HLD, HTN who presents to the [facility] ED on 08/31/25 with complaints of abdominal pain and bright red blood per rectum. Patient states she has been having diarrhea since wednesday evening that persisted into . Then she started passing blood per rectum, liquid with some clots. This was associated with abdominal pain, mostly centrally and off to the left, rating it at 7/10 in severity at its worst. She presented to the ER for workup. A CT a/p was performed that showed moderate left colon wall thickening with pericolonic stranding consistent with a colitis. Although nonspecific, this distribution raises the possibility of ischemic colitis. Patient denies this ever happening to her before. No sick contacts and no raw/undercooked food ingestion. Had colonoscopy within the last 10 years she said was clean. She currently feels better than when she first came in. In the ER labs show WBC 11.6, Hbg 13.5, Cr 1.5, Lactate 1.2. Vital signs are stable with HR 60-90s, stable pressures, afebrile. On exam patient's abdomen is soft with some tenderness to palpation in the low midline and off to left lower quadrant. Patient hemodynamically stable. She does not have findings of an acute abdomen at this time. Recommend admit to hospitalist service, resuscitate with IVF, NPO for bowel rest. Could consider sending stool studies if has a BM to rule out infectious source. If worsen consider starting IV abx. GI team has been consulted as well. Hold baby aspirin for now. History of Present Illness History of Present Illness This is an 80yF with a PMH of pre-diabetes, HLD, HTN who presents to the [facility] ED on 08/31/25 with complaints of abdominal pain and bright red blood per rectum. Patient states she has been having diarrhea since wednesday evening that persisted into . Then she started passing blood per rectum, liquid with some clots. She says she passed 4-5 bloody BMs in the last 24 hours. This was associated with abdominal pain, mostly centrally and off to the left, rating it at 7/10 in severity at its worst. She presented to the ER for workup. A CT a/p was performed that showed moderate left colon wall thickening with pericolonic stranding consistent with a colitis. Although nonspecific, this distribution raises the possibility of ischemic colitis. Patient denies this ever happening to her before. No sick contacts and no raw/undercooked food ingestion. Had colonoscopy within the last 10 years she said was clean. Notes some chills with the diarrhea, but denies any fevers, chest pain, SOB, nausea/vomiting. No significant lightheadedness/dizziness. PSH includes hysterectomy, ovarian cyst removal, and she thinks possible appendectomy but is not certain. She feels better than when she came in. She lives alone. Outside of some water today and olimpia abner yesterday she has not much to eat in last 48 hours. Last bloody BM was this AM. She does take 81mg baby aspirin daily. Allergies Allergy/AdvReac Type Severity Reaction Status Date / Time cephalexin Allergy Intermediate Itchiness, Verified 07/13/22 10:31 rash Cephalosporins Allergy Itchiness, Verified 07/13/22 10:31 rash Home Medications Medication Instructions Recorded Confirmed Type betamethasone dipropionate 0.05 % 1 applic topical DIRECTED PRN 04/26/20 08/31/25 History topical cream Skin Irritation clobetasol 0.05 % topical ointment 1 applic topical DIRECTED PRN 04/26/20 08/31/25 History Skin Irritation lisinopril 40 mg tablet 40 mg PO QAM 04/26/20 08/31/25 History loratadine 10 mg tablet 10 mg PO DAILY PRN Congestion 04/26/20 08/31/25 History metoprolol succinate 25 mg 25 mg PO QA 04/26/20 08/31/25 History tablet,extended release 24 hr multivitamin 1 tab PO QAM 04/26/20 08/31/25 History polyvinyl alcohol-povidone 0.5 1 drp ophthalmic (eye) DIRECTED 04/26/20 08/31/25 History %-0.6 % eye drops (Clear Eyes PRN Dry Eyes Natural Tears) aspirin 81 mg tablet,delayed 81 mg PO QAM 04/29/21 08/31/25 History release biotin 1 mg tablet 1 mg PO QAM 04/29/21 08/31/25 History amlodipine 5 mg tablet 5 mg PO QAM 05/01/22 08/31/25 History atorvastatin 20 mg tablet 20 mg PO PM 05/01/22 08/31/25 History hydrochlorothiazide 50 mg tablet 25 mg PO QAM 05/01/22 08/31/25 History hydrocortisone 2.5 % topical cream 1 applic topical UD PRN Other 08/31/25 08/31/25 History nystatin 100,000 unit/gram topical 1 applic topical UD PRN Other 08/31/25 08/31/25 History powder oxybutynin chloride 10 mg 10 mg PO QAM 08/31/25 08/31/25 History tablet,extended release 24 hr risankizumab-rzaa 150 mg/mL 150 mg subcut UD 08/31/25 08/31/25 History subcutaneous pen injector (Noahi) Patient History Medical History Morbid obesity Psoriasis Osteoarthritis Surgical History H/O left knee surgery left knee revision d/t infection (2020 at [facility]) History of cataract surgery R/L (done 2021 at [facility] [place]) History of colonoscopy History of cervical spinal surgery x2 History of appendectomy History of knee replacement procedure of right knee History of knee replacement procedure of left knee H/O vaginal hysterectomy H/O dilation and curettage Family History Other Heart disease Lung disease No family history of adverse response to anesthesia Stroke Social History Smoking Status: Never smoker Second Hand Exposure: No; Do You Dip or Chew Tobacco: No; Hx Alcohol Use: Yes Alcohol type: wine Alcohol Intake Frequency: Monthly or Less Hx Substance Use: No Preferred Language: Albanian Communication Ability: Effective Channel Marketing Coordinator Required: No Beliefs That Will Affect Care: None marital status: / Current Living Situation: Alone Current Living Situation Comment: lives alone in a 2 story home Feels Safe at Home: Yes Assistive Devices: Cane Review of Systems Constitutional: + chills (earlier this week); no fever Respiratory: no dyspnea Cardiovascular: no chest pain Gastrointestinal: + abdominal pain, + diarrhea/loose stool s and + blood in stools; no nausea and no vomiting Genitourinary: no problem reported Physical Exam Physical Exam: awake/alert, no distress Constitutional: well developed and well nourished; no acute distress Respiratory: normal respiratory effort Cardiovascular: Rate/Rhythm: regular rate Gastrointestinal (Abdomen): Inspection/Auscultation: + abdominal surgical scar (low midline); abdomen not distended Percussion/Palpation: + abdomen tender (some discomfort to palpation infraumbilical and lower left side) and abdomen soft; no guarding Results & Data Vital Signs (Past 12 Hours) Vital Signs Temp Pulse Pulse Resp BP Pulse Ox O2 Del Method 08/31/25 13:00 79 16 114/64 95 Room Air 08/31/25 12:17 79 08/31/25 11:45 63 16 98 Room Air 08/31/25 11:45 63 16 126/64 98 Room Air 08/31/25 11:13 97.9 F 73 18 94 Room Air Diagnostic Findings CT SCAN OF THE ABDOMEN AND PELVIS WITH IV CONTRAST CLINICAL HISTORY: Lower abdominal and back pain. Blood in stool. COMPARISON STUDY: CT of the abdomen and pelvis April 26, 2020. TECHNIQUE: Following the IV administration of 94 cc of Optiray 320, CT scan of the abdomen and pelvis is performed from the lung bases to the proximal femora. Images are reviewed in the axial, sagittal, and coronal planes. IV contrast was administered without complication. A dose lowering technique was utilized adhering to the principles of ALARA. CT DOSE: 1320.32 mGy.cm FINDINGS: Cardiomegaly is noted. A moderate sized hiatal hernia is incidentally noted. There is no pneumatosis, free air or portal venous gas. Liver, spleen, adrenal glands, kidneys and pancreas are unremarkable. There is no biliary or pancreatic ductal dilatation. No peripancreatic or pericholecystic infiltration is present. There is colonic diverticulosis without evidence for acute diverticulitis. Moderate circumferential wall thickening of the splenic flexure of the colon, descending colon and proximal to mid sigmoid colon is noted. There is pericolonic stranding and a small amount of fluid. No extraluminal gas is present. There are no fluid collections. IMPRESSION: 1. Moderate left colon wall thickening with pericolonic stranding consistent with a colitis. Although nonspecific, this distribution raises the possibility of ischemic colitis. 2. No bowel obstruction. 3. Colonic diverticulosis. No evidence for acute diverticulitis. ACT 112: Negative or not required by law. Electronically signed by: Shola Maciel M.D. 08/31/2025 1:07 PM PG Care Time/CCT Total # of Minutes Spent Total Time Spent with Patient: Total time spent is greater than 50% in coordination of care (as documented) at patient's floor/unit and/or counseling patient: Coding Level of Care Code 20164 INT INP/OBS CARE 1/40MIN Diagnoses Acute ischemic colitis K55.039
[2025-08-31] MEDS ORDERED: ALUMINUM/MAGNESIUM SUSP 30 ML UDC PO PRN (15:16)
[2025-08-31] MEDS ORDERED: MAGNESIUM HYDROXIDE SUSP 30 ML UDC PO PRN (15:16)
[2025-08-31] MEDS ORDERED: POLYETHYLENE (MIRALAX) 17 GM PACK PO PRN (15:16)
[2025-08-31] MEDS ORDERED: ONDANSETRON INJ 2 MG/ML 2 ML VIAL IV PRN (15:16)
[2025-08-31] MEDS: SODIUM CHLORIDE 0.9% 1,000 ML IV SCH (15:45)
--- NOTE | 2025-08-31 16:07 | Gastrointestinal Consultation ---
Date of Consultation August 31, 2025 Assessment & Plan (1) Acute ischemic colitis: Plan 80yowf with h/o Cervical stenosis, HTN, DL, Lymphedema, Anemia, pre-diabetes and CKD 3 is seen today for hematochezia with suspected ischemic colitis. (1) Hematochezia with left sided colitis on CT scan consistent with acute ischemic colitis. - Agree with Stool PCR and C.diff to r/o infectious colitis. - Continue with supportive care as ordered by primary team. - We'll plan to monitor over the weekend. - Recommend interval colonoscopy evaluation in 4-6 weeks after symptoms resolve unless clinical condition changes. - Thank you for allowing us to participate in the care of this patient. Please call with any acute changes, questions or concerns. Please see addendum below with additional recommendation from my supervising physician. Supervising Physician Co-Signing Physician Notes I saw and examined this patient with our nurse practitioner and agree with her assessment and plan. Clinical presentation and imaging consistent with ischemic colitis on the left side of the colon. Less likely diverticular bleed or infectious colitis. Hemodynamically stable not requiring transfusions. Bleeding had stopped. Ultimately will need an interval colonoscopy after discharge in 4 to 6 weeks. No plans for intervention at this time unless symptoms recur and diagnosis is in doubt. History of Present Illness Reason for Consultation: BRBPR ischemic colitis ? colonoscopy Attending Physician: Allan Montero MD History of Present Illness [id number] with h/o Cervical stenosis, HTN, DL, Lymphedema, Anemia, pre-diabetes and CKD 3 is seen today for hematochezia with suspected ischemic colitis. Patient reports that she developed diarrhea on Wednesday night. Early into morning she developed associted LLQ pain and bloody stools. This progressed into morning then started to slow down evening. Her last BM was around 8am which was liquid with some bloody clots. Overall she continues to have some mild LLQ which is improved from yesterday. She was seen in [facility] ER around 11 am this morning where she underwent CT scan suggestive of left sided colitis concerning for ischemic colitis based on location. Diverticula were noted without signs of diverticulitis. She denies any fevers, chills, N/V, melena. Family history - No celiac, IBD or CRC. Social History - No alcohol, tobacco, drug use or Steroid use. She did take an Ibuprofen this morning. Surgical History - Hysterectomy. Bilateral Knee replacements. She had a history of Colonoscopy. Not sure how long ago but she was told she was good for another 10 years. No polyps. Pertinent Diagnostics Hgb 13.5 Hct 39, Plt 182, WBC 11.64, ANC 9k INR 1.0 Na 136, K 3.7, Cl 101, CO2 25, BUN 39, Cr 1.57 (baseline 1.0) T-Bili 1.9 AST 19, ALT 12 ALk Phos 69, Lactate 1.2 CT moderate left colon wall thickening with pericolonic stranding consistent with colitis. Distribution is consistent with ischemic colitis. Allergies Allergy/AdvReac Type Severity Reaction Status Date / Time cephalexin Allergy Intermediate Itchiness, Verified 07/13/22 10:31 rash Cephalosporins Allergy Itchiness, Verified 07/13/22 10:31 rash Home Medications Medication Instructions Recorded Confirmed Type betamethasone dipropionate 0.05 % 1 applic topical DIRECTED PRN 04/26/20 08/31/25 History topical cream Skin Irritation clobetasol 0.05 % topical ointment 1 applic topical DIRECTED PRN 04/26/20 08/31/25 History Skin Irritation lisinopril 40 mg tablet 40 mg PO QAM 04/26/20 08/31/25 History loratadine 10 mg tablet 10 mg PO DAILY PRN Congestion 04/26/20 08/31/25 History metoprolol succinate 25 mg 25 mg PO QAM 04/26/20 08/31/25 History tablet,extended release 24 hr multivitamin 1 tab PO QAM 04/26/20 08/31/25 History polyvinyl alcohol-povidone 0.5 1 drp ophthalmic (eye) DIRECTED 04/26/20 08/31/25 History %-0.6 % eye drops (Clear Eyes PRN Dry Eyes Natural Tears) aspirin 81 mg tablet,delayed 81 mg PO QAM 04/29/21 08/31/25 History release biotin 1 mg tablet 1 mg PO QAM 04/29/21 08/31/25 History amlodipine 5 mg tablet 5 mg PO QAM 05/01/22 08/31/25 History atorvastatin 20 mg tablet 20 mg PO PM 05/01/22 08/31/25 History hydrochlorothiazide 50 mg tablet 25 mg PO QAM 05/01/22 08/31/25 History hydrocortisone 2.5 % topical cream 1 applic topical UD PRN Other 08/31/25 08/31/25 History nystatin 100,000 unit/gram topical 1 applic topical UD PRN Other 08/31/25 08/31/25 History powder oxybutynin chloride 10 mg 10 mg PO QAM 08/31/25 08/31/25 History tablet,extended release 24 hr risankizumab-rzaa 150 mg/mL 150 mg subcut UD 08/31/25 08/31/25 History subcutaneous pen injector (Melissa) Patient History Medical History Morbid obesity Psoriasis Osteoarthritis Surgical History H/O left knee surgery left knee revision d/t infection (2020 at [facility]) History of cataract surgery R/L (done 2021 at [facility] [place]) History of colonoscopy History of cervical spinal surgery x2 History of appendectomy History of knee replacement procedure of right knee History of knee replacement procedure of left knee H/O vaginal hysterectomy H/O dilation and curettage Family History Other Heart disease Lung disease No family history of adverse response to anesthesia Stroke Social History Smoking Status: Never smoker Second Hand Exposure: No; Do You Dip or Chew Tobacco: No; Hx Alcohol Use: No Hx Substance Use: No Preferred Language: Greenlandic Communication Ability: Effective Digital Media Sales Consultant Required: No Beliefs That Will Affect Care: None marital status: / Current Living Situation: Alone Current Living Situation Comment: lives alone in a 2 story home Feels Safe at Home: Yes Safety Concerns: Feels Safe At This Time Assistive Devices: Cane, Denture - Upper and Glasses Review of Systems Review of Systems: See HPI Physical Exam Physical Exam: Constitutional: NAD. Alert. Answering questions appropriately. Respiratory: Breathing is even, non-labored. Lungs mendez are clear to auscultation anteriorly. Cardiovascular: Regular Rate and Rhythm, no murmurs, rubs or gallops appreciated. Gastrointestinal (Abdomen): Normoactive bowel sounds x4, soft, non-distended. Mild tenderness in LLQ. No guarding or rebound tenderness. Musculoskeletal: Lying in bed comfortably. No peripheral edema. Results & Data Vital Signs (Past 12 Hours) Vital Signs Temp Pulse Pulse Resp BP Pulse Ox O2 Del Method 08/31/25 15:43 81 08/31/25 15:17 97.7 F 80 20 124/77 95 Room Air 08/31/25 13:00 79 16 114/64 95 Room Air 08/31/25 12:17 79 08/31/25 11:45 63 16 98 Room Air 08/31/25 11:45 63 16 126/64 98 Room Air 08/31/25 11:13 97.9 F 73 18 94 Room Air Laboratory Results Laboratory Results - last 48 hr 08/31/25 08/31/25 08/31/25 11:35 11:43 12:02 WBC 11.67 H RBC 4.38 Hgb 13.5 Hct 39.0 MCV 89.0 MCH 30.8 MCHC 34.6 RDW Std Deviation 40.2 RDW Coeff of Suyapa 12.4 Plt Count 182 MPV 10.1 Immature Gran % (Auto) 0.3 Neut % (Auto) 77.2 Lymph % (Auto) 12.5 Gregory % (Auto) 8.2 Eos % (Auto) 1.5 Baso % (Auto) 0.3 Neut # (Auto) 9.01 H Lymph # (Auto) 1.46 Gregory # (Auto) 0.96 H Eos # (Auto) 0.17 Baso # (Auto) 0.03 Immature Gran # (Auto) 0.04 PT 10.9 INR 1.0 APTT 28 PTT Ratio 1.0 Sodium 136 Potassium 3.7 Chloride 101 Carbon Dioxide 25 Anion Gap 10 BUN 39 H Creatinine 1.57 H Est Cr Clr Drug Dosing 28.8 eGFR 32.94 BUN/Creatinine Ratio 24.8 H Glucose 136 H Lactate 1.2 Calcium 8.8 Magnesium 2.1 Total Bilirubin 1.9 H AST 19 ALT 12 Alkaline Phosphatase 69 Total Protein 6.6 Albumin 3.6 Globulin 3.0 Albumin/Globulin Ratio 1.2 Blood Type B Positive Antibody Screen NEGATIVE Diagnostic Findings Abdomen/Pelvis CT 08/31/25 11:37 CT SCAN OF THE ABDOMEN AND PELVIS WITH IV CONTRAST CLINICAL HISTORY: Lower abdominal and back pain. Blood in stool. COMPARISON STUDY: CT of the abdomen and pelvis April 26, 2020. TECHNIQUE: Following the IV administration of 94 cc of Optiray 320, CT scan of the abdomen and pelvis is performed from the lung bases to the proximal femora. Images are reviewed in the axial, sagittal, and coronal planes. IV contrast was administered without complication. A dose lowering technique was utilized adhering to the principles of ALARA. CT DOSE: 1320.32 mGy.cm FINDINGS: Cardiomegaly is noted. A moderate sized hiatal hernia is incidentally noted. There is no pneumatosis, free air or portal venous gas. Liver, spleen, adrenal glands, kidneys and pancreas are unremarkable. There is no biliary or pancreatic ductal dilatation. No peripancreatic or pericholecystic infiltration is present. There is colonic diverticulosis without evidence for acute diverticulitis. Moderate circumferential wall thickening of the splenic flexure of the colon, descending colon and proximal to mid sigmoid colon is noted. There is pericolonic stranding and a small amount of fluid. No extraluminal gas is present. There are no fluid collections. IMPRESSION: 1. Moderate left colon wall thickening with pericolonic stranding consistent with a colitis. Although nonspecific, this distribution raises the possibility of ischemic colitis. 2. No bowel obstruction. 3. Colonic diverticulosis. No evidence for acute diverticulitis. ACT 112: Negative or not required by law. Electronically signed by: Shola Maciel M.D. 08/31/2025 1:07 PM PG Care Time/CCT Total # of Minutes Spent Total Time Spent with Patient: Total time spent is greater than 50% in coordination of care (as documented) at patient's floor/unit and/or counseling patient: Coding Level of Care Code 79332 IN/OBS CONSULT LVL 3,45M Diagnoses Acute ischemic colitis K55.039
[2025-08-31] MEDS: ACETAMINOPHEN 325 MG TAB PO PRN (19:29)
[2025-08-31] MEDS: ATORVASTATIN 20 MG TAB PO SCH (19:53)
[2025-09-01] LABS: Cdiff Toxin B Gene (2yr or >) Negative Cdiff Gene (Neg)
[2025-09-01 00:32] LABS: Adenovirus F 40/41 PCR Not Detected (NotDetected); Campylobacter PCR Not Detected (NotDetected); Enteroaggregative E.coli(EAEC) Not Detected (NotDetected); Shiga-like Toxin E.coli (STEC) Not Detected (NotDetected); Vibrio species PCR Not Detected (NotDetected)
[2025-09-01 06:30] LABS: Hematocrit (blood only) 32.9 % (37.0-47.0); Hemoglobin 11.3 g/dl (12.0-16.0); Mean Corpuscular Hemoglobin 30.8 pg (25.0-34.0); Mean Corpuscular Volume 89.6 fL (80.0-100.0); Platelet Count 156 K/uL (130-400); RDW Standard Deviation 40.4 fL (36.4-46.3); Red Blood Count 3.67 M/uL (4.20-5.40); White Blood Count 8.47 K/ul (4.8-10.8)
[2025-09-01 06:51] LABS: Anion Gap 7.0 (3-11); Blood Urea Nitrogen 25.0 mg/dl (6-23); Calcium 8.1 mg/dl (8.6-10.3); Carbon Dioxide 24.0 mmol/L (21-32); Chloride 107.0 mmol/L (98-107); Creatinine Clr Calc Pharmacy 41.8 ml/min; Glucose 99.0 mg/dl (70-99(Fasting)); Magnesium 2.1 mg/dl (1.7-2.4); Potassium 3.6 mmol/L (3.5-5.1); Sodium 138.0 mmol/L (136-145)
[2025-09-01] MEDS: hydroCHLOROthiazide 25 MG TAB PO SCH (08:27)
[2025-09-01] MEDS: OXYBUTYNIN CHLORIDE XL 5 MG TABCR PO SCH (08:28)
[2025-09-01] MEDS: METOPROLOL SUCC 25MG EXT REL TAB PO SCH (08:28)
[2025-09-01] MEDS: metroNIDAZOLE 500 MG/100 ML BAG IV SCH (08:59)
--- NOTE | 2025-09-01 09:52 | Surgery Progress Note ---
<Statement entered by Lane Douglass MD - 09/01/25 13:58> I saw and examined the patient and I agree with the assessment and plan of care Date of Service September 01, 2025 Assessment & Plan (1) Acute ischemic colitis: Plan: Clarice reports improvement in abdominal pain today. She is passing gas and moving her bowels. Pt was evaluated by GI yesterday with no plans for intervention and recommends outpatient colonoscopy in 4-6 weeks after discharge and resolution of symptoms. Cipro and Flagyl ordered. No plans for surgical intervention- would recommend that patient stay at least one more day and can advance diet as tolerated. Patient seen and examined with Dr. Douglass. Admission and Anticipated Discharge Date Admission Date: August 31, 2025 Subjective Clarice is sitting in chair at bedside, reports that she is feeling better today- notes improvement in abdominal pain. States that she is passing gas and has been moving her bowels. Physical Exam Physical Exam: awake/alert, no distress Constitutional: well developed and well nourished; no acute distress Respiratory: normal respiratory effort Cardiovascular: Rate/Rhythm: regular rate Gastrointestinal (Abdomen): Inspection/Auscultation: + abdominal surgical scar (low midline); abdomen not distended Percussion/Palpation: + abdomen tender (some discomfort to palpation infraumbilical and lower left side (improved)) and abdomen soft; no guarding Results & Data Vital Signs (Past 12 Hours) Vital Signs Temp Pulse Pulse Resp BP Pulse Ox O2 Del Method 09/01/25 07:42 36.6 C 68 19 131/74 96 Room Air 09/01/25 07:05 60 09/01/25 02:47 36.6 C 69 18 115/70 97 Room Air PG Care Time/CCT Total # of Minutes Spent Total Time Spent with Patient: Total time spent is greater than 50% in coordination of care (as documented) at patient's floor/unit and/or counseling patient: Coding Level of Care Code 83227 SUB INP/OBS CARE 11/18MIN Diagnoses Acute ischemic colitis K55.039
[2025-09-01] MEDS: CIPROFLOXACIN / D5W 400 MG/200 ML BAG IV SCH (10:04)
--- NOTE | 2025-09-01 10:44 | Hospitalist Progress Note ---
Date of Service September 01, 2025 Assessment & Plan (1) Acute ischemic colitis: (2) HTN (hypertension): (3) HLD (hyperlipidemia): Plan Ms. Nielsen is an 80 year old female that presents to the ED with complaints of abdominal pain and BRBPR since . CTAP indicative of ischemic colitis. #BRBPR: #Possible acute ischemic colitis: CTAP indicative of ischemic colitis; No indication of Mesenteric venous thrombosis Hemoglobin 13.5; downtrended to 11 Evaluated by surgery/GI; no acute intervention; will need interval colonoscopy after discharge in 4 to 6 weeks. Diet advanced to full liquid diet; continue on it for today. Continue on Cipro and Flagyl for antibiotic coverage Monitor for recurrence of bleeding #HTN: Takes metoprolol, amlodipine, HCTZ; continue Takes Lisinopril; hold given NURY HLD: Most recent lipids in TC 140, HDL 20, LDL 50 Takes atorvastatin; continue #NURY: creatinine 1.57. Baseline 1.0, 05/2024 Creatinine down trended with IV hydration to back to baseline Disposition: PCP: Tia Hogan PA-C Code Status: Full VTE Prophyalxis: SCDs Time spent evaluating patient, direct bedside care, chart review, placing or ders, interpretation of diagnostic studies, discussion with consultants, patient, and family members, as well as other required patient management activities is 50 minutes Please note the above document was generated using voice recognition software. It may contain grammatical, syntax or spelling errors. Any formal questions or concerns about the content, text or information contained within the body of this dictation should be directly addressed to the provider for clarification Admission and Anticipated Discharge Date Admission Date: August 31, 2025 Subjective Patient seen and examined at bedside. She is sitting up on a chair at the side of the bed comfortably. Reports that she does not have any pain and is having regular bowel movements. No bright red blood per rectum. Review of Systems Review of Systems: All systems reviewed & are unremarkable except as noted in Subjective Physical Exam Physical Exam: Constitutional: WD/WN, vitals as above, NAD, sitting up in bed, pleasant, conversing easily Respiratory: normal respiratory effort, lungs clear to auscultation, no wheeze, rales, rhonchi. Normal insp/exp effort, no accessory muscle use Cardiovascular: RRR, no murmur, no edema Vessels: no JVD or carotid bruit Chest: normal inspection of chest Abdomen soft, nontender. Musculoskeletal: no cyanosis or clubbing, extremities motor strength 5/5 Skin: no rashes, warm and dry normal turgor Neurologic: PERRL, EOMI, accommodation nl, no face palsy, no dysarthria CN's II- XI intact bilaterally and moves all extremities Psychiatric: A+Ox3, euthymic affect Results & Data Results & Data Vital Signs (Past 12 Hours) Vital Signs Temp Pulse Pulse Resp BP Pulse Ox O2 Del Method 09/01/25 07:42 36.6 C 68 19 131/74 96 Room Air 09/01/25 07:05 60 09/01/25 02:47 36.6 C 69 18 115/70 97 Room Air
[2025-09-01 15:21] VITALS: RESP 18
[2025-09-01] MEDS: LOPERAMIDE HCL 2 MG CAP PO STA (20:20)
[2025-09-02 06:31] LABS: Hematocrit (blood only) 33.3 % (37.0-47.0); Hemoglobin 11.7 g/dl (12.0-16.0); Immature Granulocytes # (auto) 0.03 K/uL (0.01-0.20); Immature Granulocytes % (auto) 0.5 %; Mean Corpuscular Hemoglobin 31.1 pg (25.0-34.0); Mean Corpuscular Volume 88.6 fL (80.0-100.0); Platelet Count 184 K/uL (130-400); RDW Standard Deviation 39.0 fL (36.4-46.3); Red Blood Count 3.76 M/uL (4.20-5.40); White Blood Count 6.00 K/ul (4.8-10.8)
[2025-09-02 06:47] LABS: Anion Gap 7.0 (3-11); Blood Urea Nitrogen 16.0 mg/dl (6-23); Calcium 8.8 mg/dl (8.6-10.3); Carbon Dioxide 28.0 mmol/L (21-32); Chloride 106.0 mmol/L (98-107); Creatinine Clr Calc Pharmacy 50.1 ml/min; Glucose 117.0 mg/dl (70-99(Fasting)); Potassium 3.6 mmol/L (3.5-5.1); Sodium 141.0 mmol/L (136-145)
[2025-09-02 07:36] VITALS: BP 136/77; PULSE 69; TEMP 97.9; O2SAT 96
[2025-09-02] MEDS: CIPROFLOXACIN 500 MG TAB PO SCH (09:15)
[2025-09-02] MEDS: metroNIDAZOLE 500 MG TAB PO SCH (09:16)
--- NOTE | 2025-09-02 09:43 | Discharge Summary ---
Date of Service September 02, 2025 Admission HPI Per Admitting Provider Ms. Nielsen is an 80 year old female that presented to the ED today with complaints of diarrhea, abdominal pain and lower back pain that started on Wednesday. On , she started to notice BRBPR with clots when she went to the bathroom with increased pain. Since here, her pain is more generalized abdominal tenderness. A CTAP was suggestive of acute ischemic colitis. She was given IV fluids in the ED which will continue. She has mild leukocytosis 11.6, lactic acid is 1.2, T. bili 1.9, no transaminitis, mild NURY 1.57; her baseline creatinine is 1.0. CTAP suggestive of ischemic colitis however no mesenteric venous thrombosis was noted. On examination she does not appear toxic and is hemodynamically stable. She denies headache, fever, chills, chest pain, dizziness, visual or auditory changes, recent falls or trauma. Denies tobacco, alcohol or recreational drug use. Patient will be admitted for further management of BRBPR and possible ischemic colitis . Blood consent obtained in ED. Will consult GI and general surgery for further recommendations. Hold on IV antibiotic for now given stability. Trend labs every 6 H&H and BMP in AM. Please see A/P for further details. Admission Exam Per Admitting Provider Constitutional: WD/WN, vitals as above, NAD, sitting up in bed, pleasant, conversing easily Respiratory: normal respiratory effort, lungs clear to auscultation, no wheeze, rales, rhonchi. Normal insp/exp effort, no accessory muscle use Cardiovascular: RRR, no murmur, no edema Vessels: no JVD or carotid bruit Chest: normal inspection of chest Abdomen soft, nontender. Musculoskeletal: no cyanosis or clubbing, extremities motor strength 5/5 Skin: no rashes, warm and dry normal turgor Neurologic: PERRL, EOMI, accommodation nl, no face palsy, no dysarthria CN's II- XI intact bilaterally and moves all extremities Psychiatric: A+Ox3, euthymic affect Principal Diagnosis #BRBPR: #Possible acute ischemic colitis: Discharge Exam Constitutional: WD/WN, vitals as above, NAD, sitting up in bed, pleasant, conversing easily Respiratory: normal respiratory effort, lungs clear to auscultation, no wheeze, rales, rhonchi. Normal insp/exp effort, no accessory muscle use Cardiovascular: RRR, no murmur, no edema Vessels: no JVD or carotid bruit Chest: normal inspection of chest Abdomen soft, nontender. Musculoskeletal: no cyanosis or clubbing, extremities motor strength 5/5 Skin: no rashes, warm and dry normal turgor Neurologic: PERRL, EOMI, accommodation nl, no face palsy, no dysarthria CN's II- XI intact bilaterally and moves all extremities Psychiatric: A+Ox3, euthymic affect Discharge Data Allergies Allergy/AdvReac Type Severity Reaction Status Date / Time cephalexin Allergy Intermediate Itchiness, Verified 07/13/22 10:31 rash Cephalosporins Allergy Itchiness, Verified 07/13/22 10:31 rash Consultations 08/31/25 13:21 ED Decision to Admit Stat 08/31/25 14:11 Consult General Surgery Routine 08/31/25 14:24 Consult Gastroenterology Routine Ordered Studies 08/31/25 11:37 CT abd pelvis IV con only Stat Hospital Course (1) Acute ischemic colitis: (2) HTN (hypertension): (3) HLD (hyperlipidemia): Plan Ms. Nielsen is an 80 year old female that presents to the ED with complaints of abdominal pain and BRBPR since . CTAP indicative of ischemic colitis. #BRBPR: #Possible acute ischemic colitis: NURY Patient presented with abdominal pain and bright red blood per rectum CTAP indicative of ischemic colitis; No indication of Mesenteric venous thrombosis Patient was admitted to telemetry floor; she was started on antibiotic, was monitored for any rebleeding. Patient continued to report improvement in abdominal discomfort/pain. She started to have regular bowel movements without any bleeding. She was tolerating advance her diet as well. GI and surgery were both consulted during the hospitalization; they recommended patient to follow-up outpatient and obtain colonoscopy in 4 to 6 weeks. Patient was discharged home on oral antibiotic. She was asked to hold off on aspirin for 1 more week along with lisinopril given NURY. Please note the above document was generated using voice recognition software. It may contain grammatical, syntax or spelling errors. Any formal questions or concerns about the content, text or information contained within the body of this dictation should be directly addressed to the provider for clarification Total Time Total Time Spent Total Time Spent (In Minutes): 45 Total Time Includes: Examination of the Patient, Discharge Planning, Medication Reconciliation, Communication With Other Providers and Other Discharge Plan Discharge Items Patient Disposition: Home - Self-Care Reason For Visit: GIB/ISCHEMIC COLITIS Discharge Diagnosis: #BRBPR: #Possible acute ischemic colitis: Condition on Discharge: Good Activity: Resume your previous activity Non-emergency contact: Primary Care Provider Call non-emergency contact if: you have any medication questions and your symptoms worsen Follow-up/Referrals: Tia Hogan PA-C [Primary Care Provider] - Diet: Low Fiber Addtl Attending Provider Instructions: You were admitted to the hospital due to bleeding; likely secondary to ischemic colitis. Please take the medication as follows; Take ciprofloxacin 500 mg twice a day for 4 days Take metronidazole 500 mg 3 times a day for 4 days Please hold off on taking aspirin for at least 1 week; resume on September 09, 2025 Please hold off on taking lisinopril for 1 week, resume on September 09, 2025. Please follow the low fiber diet that we discussed for next 2 weeks. An appointment will be made with your primary care doctor; you will need colonoscopy in 4 to 6 weeks time after your bowels heal Pending Studies at Discharge: No Stand-Alone Forms: [employer], Smoking Cessation Medications and DC Order Prescriptions: New metronidazole 500 mg Tablet 500 mg PO TID 4 Days Qty: 12 0RF ciprofloxacin HCl 500 mg Tablet 500 mg PO BID 4 Days Qty: 8 0RF Continued multivitamin Tablet 1 tab PO QAM betamethasone dipropionate 0.05 % Cream 1 applic TOPICAL DIRECTED PRN (Reason: Skin Irritation) metoprolol succinate 25 mg tablet extended release 24 hr 25 mg PO QAM clobetasol 0.05 % Ointment 1 applic TOPICAL DIRECTED PRN (Reason: Skin Irritation) loratadine 10 mg Tablet 10 mg PO DAILY PRN (Reason: Congestion) Clear Eyes Natural Tears 0.5-0.6 % Drops 1 drp OPHTHALMIC (EYE) DIRECTED PRN (Reason: Dry Eyes) biotin 1 mg Tablet 1 mg PO QAM atorvastatin 20 mg Tablet 20 mg PO PM amlodipine 5 mg Tablet 5 mg PO QAM hydrochlorothiazide 50 mg tablet 25 mg PO QAM oxybutynin chloride 10 mg tablet extended release 24hr 10 mg PO QAM hydrocortisone 2.5 % cream 1 applic TOPICAL UD PRN (Reason: Other) nystatin 100,000 unit/gram powder 1 applic TOPICAL UD MDD r PRN (Reason: Other) Skyrizi 150 mg/mL pen injector 150 mg SUBCUT UD Held lisinopril 40 mg tablet 40 mg PO QAM Hold Instructions: Resume on 09/09/25. aspirin 81 mg Tablet,Delayed Release (Dr/Ec) 81 mg PO QAM Hold Instructions: Resume on 09/09/25. Discharge Orders: Discharge Order (Routine); Ordered 09/02/25 Ordered By: Kenny Damian Admission Data Admit Date/Time: 08/31/25 13:25 Attending Provider: Kenny Damian Admit Provider: Allan Montero Primary Care Provider: Tia Hogan Other Providers: Lane Douglass; Abdulkadir Interiano I; Allan Montero
--- NOTE | 2025-09-02 10:26 | Surgery Progress Note ---
<Statement entered by Lane Douglass MD - 09/02/25 15:49> I independently saw the patient, and I agree with the assessment and plan of care. Date of Service September 02, 2025 Assessment & Plan (1) Colitis: Plan: Patient here with BRBPR and CT evidence of colitis WBC 6, Hbg 11.7, Vitals stable Pt is doing well, has no pain at this point + BMs without blood Tolerating diet advancement. abdomen soft/nontender Okay for d/c from our standpoint. will need f/u with GI to consider outpatient colonoscopy in 6-8 weeks medicine sending out on some PO abx for completion of course Admission and Anticipated Discharge Date Admission Date: August 31, 2025 Subjective Patient feeling better. Essentially no pain at this point. Was having diarrhea, received imodium and it improved this for her. No more blood per rectum. Physical Exam Physical Exam: awake/alert, no distress Gastrointestinal (Abdomen): Percussion/Palpation: abdomen soft; abdomen nontender Results & Data Vital Signs (Past 12 Hours) Vital Signs Temp Pulse Pulse Resp BP Pulse Ox O2 Del Method 09/02/25 07:35 97.9 F 69 18 136/77 96 Room Air 09/02/25 07:26 59 L 09/02/25 04:01 98.6 F 64 18 137/65 97 Room Air 09/01/25 23:10 98.6 F 63 18 116/73 96 Room Air PG Care Time/CCT Total # of Minutes Spent Total Time Spent with Patient: Total time spent is greater than 50% in coordination of care (as documented) at patient's floor/unit and/or counseling patient: Coding Level of Care Code 98276 SUB INP/OBS CARE 11/18MIN Diagnoses Colitis K52.9
== END 2025-09-02 14:44 | disposition home or self-care (01) | DRG 394 ==
LOC: ED 11:06 → 4W 13:25 → SUATTDRO 13:25 → 4W 15:07